=== PATIENT | male | born 1950 | race Caucasian/White ===

== ENCOUNTER 2019-08-16 17:30 | Inpatient (IN) ==
[2019-08-16] MEDS ORDERED: LABETALOL 5 MG/ML ML IV ONE (17:54)
--- NOTE | 2019-08-16 18:02 | Emergency Department Note ---
Altered Mental Status HPI - General Chief Complaint: Fall Stated Complaint: Fall Time Seen by Provider: 08/16/19 17:39 Source: patient, EMS Mode of arrival: EMS Limitations: no limitations - History of Present Illness HPI Narrative: 68-year-old male patient brought to the emergency department via ambulance. EMS says that the patient sustained a fall from the toilet to the ground his home. When questioned, the patient does not remember falling. He does not remember waking up this morning. He is a alert and orientated to his name, this facility, and the current president. He is unsure of what day of the week it is, what month it is, or what year it is. He denies any form of pain. He denies fever, sweats, chills. He denies vision changes. He denies headache. He denies satiation, runny nose, or cough. He denies shortness of breath. He d enies retrosternal chest pain or palpitations. He denies abdominal pain, nausea, vomiting, diarrhea, or constipation. He denies dysuria, hematuria, or frequency. He denies focal weakness. Patient's past medical history consist of the following: Hypertension, hyperglycemia, psoriasis, elevated LFTs, chronic diastolic heart failure, carotid artery stenosis, aortic insufficiency. MD complaint: altered mental status - Related Data Home Medications Medication Instructions Recorded Confirmed Amlodipine Besylate 10 mg PO DAILY 08/16/19 08/16/19 Carvedilol 3.125 mg PO DAILY 08/16/19 08/16/19 Clopidogrel 75 mg PO DAILY 08/16/19 08/16/19 Losartan Potassium 100 mg PO DAILY 08/16/19 08/16/19 Simvastatin 20 mg PO DAILY 08/16/19 08/16/19 Allergies Allergy/AdvReac Type Severity Reaction Status Date / Time No Known Drug Allergies Allergy Verified 08/16/19 17:31 Review of Systems All systems ED: reviewed and negative except as stated. Past Medical History - Social History smoking status: Former smoker Physical Exam Limitations: no limitations General appearance: alert, anxious, other (Well-developed, well-nourished 68-year-old male patient seen on the emergency room gurney obviously very anxious. He is trembling.) Head: atraumatic, normocephalic Eye: Present: normal appearance, PERRL, EOMI. Absent: scleral icterus, conjunctival injection ENT: Present: normal oropharynx, mucous membranes moist Neck: Present: trachea midline. Absent: lymphadenopathy, thyromegaly Chest: Present: symmetric chest wall rise Respiratory: Present: normal lung sounds bilaterally. Absent: respiratory distress, wheezes, stridor, accessory muscle use, prolonged expiratory phase Cardiovascular: Present: normal rhythm, tachycardia, systolic murmur. Absent: diastolic murmur Abdominal: Present: soft. Absent: distention, tenderness, guarding, rebound, rigidity, organomegaly, mass Extremities: Present: normal inspection, full ROM, normal capillary refill. Absent: pedal edema Back: Absent: CVA tenderness (R), CVA tenderness (L), spinous process tenderness Neurological: Present: alert, CN II-XII intact Patient oriented to: Present: person Speech: Present: fluid speech Motor strength - LUE: 5/5 Motor strength - RUE: 5/5 Motor strength - LLE: 5/5 Motor strength - RLE: 5/5 Sensory exam upper extremity: Normal: light touch Sensory exam lower extremity: Normal: light touch DTR: 2+: biceps (L), biceps (R), patellar (L), patellar (R) Coma Scale Eye Opening: Spontaneous Coma Scale Motor Response: Obeys Commands Coma Scale Verbal Response: Confused Coma Scale Total: 14 Psychiatric: Present: normal affect, anxious Skin: Present: warm, dry Course Course Narrative: Patient was brought into the emergency department and a history of physical exam was performed. Saline lock was established and laboratory studies were drawn. Blood glucose was obtained and reviewed. Twelve-lead EKG was obtained and reviewed. Portable chest x-ray was ordered and reviewed. Noncontrast head CT scan was ordered and reviewed. Normal saline was started 1000 mL bolus. Patient was found to be significantly hypertensive 159/124. He was given labetalol 20 mg IVP. A review of his laboratory studies show the following: CBC WBC 9.6, RBC 4.53, hemoglobin 14.2, hematocrit 42.5, platelets 140, granulocyte percent 91.8, granulocyte #8.71. CMP chloride 92, carbon dioxide 16, anion gap 29, BUN 7, glucose 23, total bilirubin 1.1, AST 140, ALT 52, total protein 8.6, globulin 4.1, all others normal limits. Troponin less than 0.01. Lactic acid 10.4. Urinalysis is showing straw-colored clear urine with specific gravity 1.0 pH 7.0. Positive proteinuria, positive glucose urea, positive ketonuria, positive small occult blood 0.03. Negative all others. No culture is indicated. Noncontrast head CT scan showing moderate atrophy with chronic ischemic changes in the deep cerebral white matter and a few remote lacunar infarcts in the deep cerebral white matter and basal ganglia. There was no intracerebral hemorrhage or posttraumatic change. Chest x-ray read as normal. ABG report showing pH 7.40, PCO2 36, PO2 75, HCO3 22.3. After reviewing all the data a second normal saline 1000 mL was started. Repeat lactic acid was requested. Blood cultures x2 were ordered and initiated. Vancomycin 1500mg IV was started. Upon reevaluation patient is sitting upright on the emergency room gurney a bit more lucid. He mentions remembering waking up this morning. He went inside to use the restroom but "that is all I remember". The next thing he recalls is being brought into the hospital via EMS. He still does not recall falling in the restroom. Repeat lactic acid had decreased to 5.4. Patient's spouse arrived at at the bedside and filled in some details. Patient has been ill most the day with nausea and vomiting. He did go down stairs to use restroom. During that time she was alerted by 1 of their animals to a problem downstairs. She went downstairs and found her passed out and stuck between the toilet and a cabinet. She attempted to remove the patient from the space and then called 911. During that time he was pale and diaphoretic. After reviewing the repeat lactic acid I discussed the case briefly with my collaborating physician (Dr. Griffin). He recommended a CK to help rule out rhabdomyolysis so this was ordered. Next, I reached out to the hospitalist (Dr. Hahn) to discuss the case with him and possible admission of the patient. At this time the hospitalist has recommended that the patient be admitted to the hospital for ongoing patient patient will be admitted under the care of Dr. Hahn. All further treatment decisions, modalities, and ultimate patient disposition will be carried out by the hospitalist. Vital Signs Temperature 98.4 F 08/16/19 17:31 Pulse Rate 130 H 08/16/19 17:31 Respiratory Rate 22 08/16/19 17:31 Blood Pressure 153/111 08/16/19 17:31 Pulse Oximetry (%) 98 08/16/19 17:31 Temperature 98.5 F 08/16/19 21:15 Pulse Rate 98 H 08/16/19 22:00 Respiratory Rate 14 08/16/19 22:00 Blood Pressure 136/96 08/16/19 21:30 Pulse Oximetry (%) 96 08/16/19 22:00 Altered Mental Status - Lab Data Lab results reviewed: Yes I reviewed the patient's lab results. Result diagrams: 08/16/19 18:00 08/16/19 18:00 Lab Results 08/16/19 08/16/19 08/16/19 Range/Units 18:00 18:00 18:00 WBC 9.6 (4.50-11.00) K/mcL RBC 4.53 L (4.63-6.08) M/mcL Hgb 14.2 (13.7-17.5) g/dL Hct 42.5 (40.1-51.0) % MCV 39.8 L (80.0-100.0) fL MCH 31.3 (26.0-34.0) pg MCHC 33.4 (31.0-36.0) g/dL RDW 15.4 H (11.5-14.5) % Plt Count 140 (140-440) K/mcL MPV 10.5 H (7.4-10.4) fL Gran % 91.8 H (38.0-78.0) % Lymph % (Auto) 4.8 L (15.5-49.0) % [place] % (Auto) 3.1 (1.0-12.0) % Eos % (Auto) 0 (0.0-7.0) % Baso % (Auto) 0.3 (0.0-2.0) % Gran # 8.71 H (1.80-8.00) K/mcL Lymph # (Auto) 0.46 L (1.50-4.80) K/mcL [place] # (Auto) 0.29 (0.10-0.90) K/mcL Eos # (Auto) 0 (0.00-0.70) K/mcL Baso # (Auto) 0.03 (0.00-0.30) K/mcL VBG Lactic Acid 10.4 H* (0.5-2.0) mmol/L Sodium 137 (133-145) mmol/L Potassium 3.5 (3.3-5.1) mmol/L Chloride 92 L (96-108) mmol/L Carbon Dioxide 16 L (22-30) mmol/L Anion Gap 29.0 H (8-16) BUN 7 L (8-23) mg/dl Creatinine 1.1 (0.7-1.2) mg/dl GFR Calculation 68 Glucose 183 H (70-105) mg/dL Calcium 9.1 (8.6-10.4) mg/dl Total Bilirubin 1.1 H (0.0-1.0) mg/dL AST 140 H (0-37) U/l ALT 52 H (0-40) U/l Alkaline Phosphatase 87 (39-117) U/L Total Creatine Kinase (24-195) IU/L Troponin T (0-0.03) ng/ml Total Protein 8.6 H (5.9-8.4) gm/dL Albumin 4.5 (3.2-5.2) gm/dL Globulin 4.1 H (2.2-3.7) gm/dL Albumin/Globulin Ratio 1.1 (1.0-2.3) Urine Color Urine Appearance Urine pH (5.0-9.0) Ur Specific [place] (1.000-1.035) Urine Protein (NEG) mg/dL Urine Glucose (UA) (NEG) mg/dL Urine Ketones (NEG) mg/dL Urine Occult Blood (<0.03) mg/dL Urine Nitrate (NEG) Urine Bilirubin (NEG) mg/dL Urine Urobilinogen (NEG) mg/dL Ur Leukocyte Esterase (NEG) /uL Urine RBC (0-1) /hpf Urine WBC (0-4) /hpf Ur Squamous Epith Cells (0-4) /hpf Urine Bacteria (0) /hpf Hyaline Casts (0-2) /lpf Urine Mucus (0) /hpf Ur Culture Indicated? 08/16/19 08/16/19 08/16/19 Range/Units 18:00 18:00 18:13 WBC (4.50-11.00) K/mcL RBC (4.63-6.08) M/mcL Hgb (13.7-17.5) g/dL Hct (40.1-51.0) % MCV (80.0-100.0) fL MCH (26.0-34.0) pg MCHC (31.0-36.0) g/dL RDW (11.5-14.5) % Plt Count (140-440) K/mcL MPV (7.4-10.4) fL Gran % (38.0-78.0) % Lymph % (Auto) (15.5-49.0) % [place] % (Auto) (1.0-12.0) % Eos % (Auto) (0.0-7.0) % Baso % (Auto) (0.0-2.0) % Gran # (1.80-8.00) K/mcL Lymph # (Auto) (1.50-4.80) K/mcL [place] # (Auto) (0.10-0.90) K/mcL Eos # (Auto) (0.00-0.70) K/mcL Baso # (Auto) (0.00-0.30) K/mcL VBG Lactic Acid (0.5-2.0) mmol/L Sodium (133-145) mmol/L Potassium (3.3-5.1) mmol/L Chloride (96-108) mmol/L Carbon Dioxide (22-30) mmol/L Anion Gap (8-16) BUN (8-23) mg/dl Creatinine (0.7-1.2) mg/dl GFR Calculation Glucose (70-105) mg/dL Calcium (8.6-10.4) mg/dl Total Bilirubin (0.0-1.0) mg/dL AST (0-37) U/l ALT (0-40) U/l Alkaline Phosphatase (39-117) U/L Total Creatine Kinase 111 (24-195) IU/L Troponin T < 0.01 (0-0.03) ng/ml Total Protein (5.9-8.4) gm/dL Albumin (3.2-5.2) gm/dL Globulin (2.2-3.7) gm/dL Albumin/Globulin Ratio (1.0-2.3) Urine Color Straw Urine Appearance Clear Urine pH 7.0 (5.0-9.0) Ur Specific [place] 1.010 (1.000-1.035) Urine Protein 100 A (NEG) mg/dL Urine Glucose (UA) 50 A (NEG) mg/dL Urine Ketones 5/tr A (NEG) mg/dL Urine Occult Blood 0.03 A (<0.03) mg/dL Urine Nitrate Neg (NEG) Urine Bilirubin Neg (NEG) mg/dL Urine Urobilinogen Neg (NEG) mg/dL Ur Leukocyte Esterase Neg (NEG) /uL Urine RBC 1 (0-1) /hpf Urine WBC 1 (0-4) /hpf Ur Squamous Epith Cells 0 (0-4) /hpf Urine Bacteria 0 (0) /hpf Hyaline Casts 5 H (0-2) /lpf Urine Mucus Few (0) /hpf Ur Culture Indicated? No 08/16/19 Range/Units 19:43 WBC (4.50-11.00) K/mcL RBC (4.63-6.08) M/mcL Hgb (13.7-17.5) g/dL Hct (40.1-51.0) % MCV (80.0-100.0) fL MCH (26.0-34.0) pg MCHC (31.0-36.0) g/dL RDW (11.5-14.5) % Plt Count (140-440) K/mcL MPV (7.4-10.4) fL Gran % (38.0-78.0) % Lymph % (Auto) (15.5-49.0) % [place] % (Auto) (1.0-12.0) % Eos % (Auto) (0.0-7.0) % Baso % (Auto) (0.0-2.0) % Gran # (1.80-8.00) K/mcL Lymph # (Auto) (1.50-4.80) K/mcL [place] # (Auto) (0.10-0.90) K/mcL Eos # (Auto) (0.00-0.70) K/mcL Baso # (Auto) (0.00-0.30) K/mcL VBG Lactic Acid 5.1 H* (0.5-2.0) mmol/L Sodium (133-145) mmol/L Potassium (3.3-5.1) mmol/L Chloride (96-108) mmol/L Carbon Dioxide (22-30) mmol/L Anion Gap (8-16) BUN (8-23) mg/dl Creatinine (0.7-1.2) mg/dl GFR Calculation Glucose (70-105) mg/dL Calcium (8.6-10.4) mg/dl Total Bilirubin (0.0-1.0) mg/dL AST (0-37) U/l ALT (0-40) U/l Alkaline Phosphatase (39-117) U/L Total Creatine Kinase (24-195) IU/L Troponin T (0-0.03) ng/ml Total Protein (5.9-8.4) gm/dL Albumin (3.2-5.2) gm/dL Globulin (2.2-3.7) gm/dL Albumin/Globulin Ratio (1.0-2.3) Urine Color Urine Appearance Urine pH (5.0-9.0) Ur Specific [place] (1.000-1.035) Urine Protein (NEG) mg/dL Urine Glucose (UA) (NEG) mg/dL Urine Ketones (NEG) mg/dL Urine Occult Blood (<0.03) mg/dL Urine Nitrate (NEG) Urine Bilirubin (NEG) mg/dL Urine Urobilinogen (NEG) mg/dL Ur Leukocyte Esterase (NEG) /uL Urine RBC (0-1) /hpf Urine WBC (0-4) /hpf Ur Squamous Epith Cells (0-4) /hpf Urine Bacteria (0) /hpf Hyaline Casts (0-2) /lpf Urine Mucus (0) /hpf Ur Culture Indicated? - Radiology Data Radiology results reviewed: Yes I reviewed the patient's radiology results. Ordering Physician: Erik Merchant PA-C Date of Service: 08/16/19 Procedure(s): XR chest 1V portable Accession Number(s): [id number] IMPRESSION: Normal chest. Ordering Physician: Erik Merchant PA-C Date of Service: 08/16/19 Procedure(s): CT head/brain wo con Accession Number(s): [id number] ] IMPRESSION: Moderate atrophy with chronic ischemic changes in the deep cerebral white matter with a few remote lacunar infarcts in the deep cerebral white matter and basal ganglia. There is no intracerebral hemorrhage or posttraumatic change. 2.5 cm polyp - right maxillary sinus moderate cerumen noted in the left external auditory meatus - consider removal. Interpreted and Authenticated by: Pb Walls 08/16/19 - EKG Data EKG attestation: Yes I reviewed and interpreted this EKG., Yes There are no EKG findings of acute coronary syndrome Disposition Pt seen by [facility]/PA only: Yes Clinical Impression: Elevated lactic acid level Syncope Qualifiers: Syncope type: vasovagal syncope Qualified Code(s): R55 - Syncope and collapse Altered mental status Qualifiers: Altered mental status type: disorientation Qualified Code(s): R41.0 - Disorientation, unspecified Disposition: Xfer As Outpt/Obs ([facility]) Condition: Fair Additional Instructions: At this time patient is going to be admitted to the hospital under the care of Dr. Hahn (hospitalist). All further treatment decisions, modalities, and ultimate patient disposition will be carried out by Dr. Hahn. Referrals: Bassam Fang MD [Physician] -
--- NOTE | 2019-08-16 18:28 | XRay Report ---
CLINICAL INFORMATION: Trauma COMPARISON: None. TECHNIQUE: PA and Lateral views FINDINGS: The heart size, mediastinum and pulmonary vessels are unremarkable. The lungs are clear. There are no effusions. The bones and soft tissues are within normal limits. IMPRESSION: Normal chest. Interpreted and Authenticated by: Pb Walls 08/16/19
--- NOTE | 2019-08-16 18:58 | Cat Scan Report ---
CLINICAL INFORMATION: Trauma COMPARISON: None. TECHNIQUE: 2.5 mm helical slices were obtained in the skull base to vertex. Following reconstruction, axial reformatted images were reviewed at bone and parenchymal windows. The exam was performed using radiation dose optimization techniques including, but not limited to, automated exposure control, adjustment of the mA and/or kV according to patient size and use of iterative reconstruction technique. FINDINGS: The ventricles, sulci, fissures, and cisterns are symmetrically enlarged compatible with moderate age-related atrophy - no extra-axial fluid collections or masses appreciated. Mild patchy chronic ischemic changes seen in the cerebral white matter. A few remote lacunar infarct noted in the deep cerebral white matter and basal ganglia. There is no acute cerebral hemorrhage, mass effect, edema or other acute finding. Bone windows show no fracture or other osseous abnormality. IMPRESSION: Moderate atrophy with chronic ischemic changes in the deep cerebral white matter with a few remote lacunar infarcts in the deep cerebral white matter and basal ganglia. There is no intracerebral hemorrhage or posttraumatic change. 2.5 cm polyp - right maxillary sinus moderate cerumen noted in the left external auditory meatus - consider removal.. Interpreted and Authenticated by: Pb Walls 08/16/19
[2019-08-16] MEDS ORDERED: VANCOMYCIN 1,500 MG in 0.9 % SODIUM CHLORIDE 500 ML IV ONE (19:13)
[2019-08-16] MEDS ORDERED: 0.9 % SODIUM CHLORIDE 1,000 ML IV ONE ×2 (19:17→19:18)
[2019-08-16 19:18] LABS: ALT/SGPT 52 U/l (0-40); AST/SGOT 140 U/l (0-37); Albumin 4.5 gm/dL (3.2-5.2); Albumin/Globulin Ratio 1.1 (1.0-2.3); Alkaline Phosphatase 87 U/L (39-117); Bilirubin,Total 1.1 mg/dL (0.0-1.0); Blood Urea Nitrogen 7 mg/dl (8-23); Calcium 9.1 mg/dl (8.6-10.4); Carbon Dioxide 16 mmol/L (22-30); Globulin 4.1 gm/dL (2.2-3.7); Glomerular Filtration Rate 68; Glucose 183 mg/dL (70-105)
[2019-08-16 19:22] LABS: Chloride 92 mmol/L (96-108)
[2019-08-16 19:23] LABS: Appearance,Urine CLEAR; Bacteria,Urine 0 /hpf (0); Bilirubin,Urine NEG (NEG); Color,Urine STRAW; Culture Indicated,Urine NO; Glucose,Urine (UA) 50 mg/dL (NEG); Ketones,Urine 5/TR mg/dL (NEG); Leukocyte Esterase,Urine NEG /uL (NEG); Mucus,Urine FEW /hpf (0); Nitrate,Urine NEG (NEG); Protein,Urine 100 mg/dL (NEG); Urine Blood 0.03 mg/dL (<0.03); Urine Hyaline Cast 5 /lpf (0-2); Urine RBC 1 /hpf (0-1); Urine Squamous Epithelial Cell 0 /hpf (0-4); Urine WBC 1 /hpf (0-4); Urobilinogen,Urine NEG (NEG)
[2019-08-16 19:34] LABS: Hematocrit 42.5 % (40.1-51.0); Hemoglobin 14.2 g/dL (13.7-17.5); Mean Cell Volume 39.8 fL (80.0-100.0); Mean Corpuscular HGB Conc 33.4 g/dL (31.0-36.0); Mean Platelet Volume 10.5 fL (7.4-10.4); Platelet Count 140 K/mcL (140-440); RBC 4.53 M/mcL (4.63-6.08); Red Cell Distribution Width 15.4 % (11.5-14.5); WBC 9.6 K/mcL (4.50-11.00)
[2019-08-16 19:36] LABS: Basophils # (Auto) 0.03 K/mcL (0.00-0.30); Basophils % (Auto) 0.3 % (0.0-2.0); Eosinophils # (Auto) 0 K/mcL (0.00-0.70); Eosinophils % (Auto) 0 % (0.0-7.0); Granulocytes % (Auto) 91.8 % (38.0-78.0); Lymphocytes # (Auto) 0.46 K/mcL (1.50-4.80); Lymphocytes % (Auto) 4.8 % (15.5-49.0); Monocytes # (Auto) 0.29 K/mcL (0.10-0.90); Monocytes % (Auto) 3.1 % (1.0-12.0)
[2019-08-16 21:41] LABS: Creatine Kinase 111 IU/L (24-195)
--- NOTE | 2019-08-16 22:50 | Internal Med History&Physical ---
Medical - H&P: HPI Patient information: Note initiated : 08/16/19 at 10:44 pm Service Date, if different from initiated Date: [] Patient: Sebastián Valentino a 68 y/o M admitted on for Fall. Chief Complaint: [] History of present illness: Mr. Valentino is a 68 year old M Presents the ED after having a syncopal episode. Per the history from the patient and his he seemed to be doing well yesterday. He had a sandwich from the sub-shop around 4 PM. Woke up in the morning and did not have breakfast which was unusual for him sound like he just did not have an appetite. And then later in the day around lunchtime he started having some nausea vomiting 3-4 episodes of clear fluid or and yellow fluid. He went down to go to the bathroom and was sitting on the toilet having a bowel movement was last thing he remembers. Next his heard the dog barking and went down found him on the ground by the toilet. Patient seemed confused after awakening and had a hard time remember events and also the year as asked by . He is very weak and his collection could not get him into a car so she called 911. He is never had an episode like this before. His that he is not anything to eat or drink since yesterday at 4 AM. In the ED was evaluated and he was sinus rhythm on the monitor. Labs were not very revealing except for he did have an elevated lactate at 10 which was repeated an hour later found to be 5. Chest x-ray was unrevealing. Urinalysis with some ketones hyaline cast protein CT of the brain showed no acute findings but did show moderate atrophy with chronic ischemic changes and some remote letter could infarcts in the cerebral white matter basal ganglia. Denies any chest pain or abdominal pain or shortness of breath around bowel movement or dysuria. No coughing. After several liters IV fluids in the ER he started to clear up with his mentation. Review of Systems: Pertinent positives as above. Denies headache/fever/chills/chest or abdominal pain/cough/dyspnea/diarrhea. Remaining 10 point review of system reviewed negative Medical - H&P: PMH Medical history: Past medical history: Carotid artery stenosis History of diastolic heart failure grade 1 History of hypertension History of cerebrovascular accident as evidenced by CT brain imaging recently, but patient unaware of any episodes of strokes in the past Past surgical history: None Family: Mother breast cancer heart disease Father had myocardial infarction Social history: Patient quit smoking in 89 Has 1-2 drinks of alcohol per night Ambulates independently Lives at home with his Medical - H&P: Meds Home Medications Medication Instructions Recorded Confirmed Type Amlodipine Besylate 10 mg PO DAILY 08/16/19 08/16/19 History Carvedilol 3.125 mg PO DAILY 08/16/19 08/16/19 History Clopidogrel 75 mg PO DAILY 08/16/19 08/16/19 History Losartan Potassium 100 mg PO DAILY 08/16/19 08/16/19 History Simvastatin 20 mg PO DAILY 08/16/19 08/16/19 History Allergies Allergy/AdvReac Type Severity Reaction Status Date / Time No Known Drug Allergies Allergy Verified 08/16/19 17:31 Medical - H&P: Exam - Constitutional Vitals: Temp Pulse Resp BP Pulse Ox 98.5 F 98 H 14 136/96 96 08/16/19 21:15 08/16/19 22:00 08/16/19 22:00 08/16/19 21:30 08/16/19 22:00 Exam: General: Awake, No acute Distress, appears little shaky in hands Eyes/N/T: EOMI, PERRL, dry MM Head/Neck: neck supple, normocephalic atraumatic CV: Tachycardia but regular, No murmurs, normal s1/s2 Pulm: Clear b/l, no wheezing/rhonchi/rales Abd: soft, nontender, +BS x4 Ext: no clubbing/cyanosis/edema Neuro: Alert, no focal deficits, moves all extremities, CN 2-12 grossly intact, symmetrical strength b/l upper/lower, sensations intact b/l upper/lower Skin: warm/dry Medical - H&P: Reslt - Labs CBC & Chem 7: 08/16/19 18:00 08/16/19 18:00 Labs: Short CBC 08/16/19 Range/Units 18:00 WBC 9.6 (4.50-11.00) K/mcL Hgb 14.2 (13.7-17.5) g/dL Hct 42.5 (40.1-51.0) % Plt Count 140 (140-440) K/mcL BMP 08/16/19 18:00 Sodium 137 Potassium 3.5 Chloride 92 L Carbon Dioxide 16 L BUN 7 L Creatinine 1.1 Glucose 183 H Calcium 9.1 Cardiac Enzymes 08/16/19 08/16/19 Range/Units 18:00 18:00 Total Creatine Kinase 111 (24-195) IU/L Troponin T < 0.01 (0-0.03) ng/ml Liver Function 08/16/19 Range/Units 18:00 Total Bilirubin 1.1 H (0.0-1.0) mg/dL AST 140 H (0-37) U/l ALT 52 H (0-40) U/l Alkaline Phosphatase 87 (39-117) U/L Albumin 4.5 (3.2-5.2) gm/dL Urine 08/16/19 Range/Units 18:13 Urine Color Straw Urine Appearance Clear Urine pH 7.0 (5.0-9.0) Ur Specific [place] 1.010 (1.000-1.035) Urine Protein 100 A (NEG) mg/dL Urine Glucose (UA) 50 A (NEG) mg/dL Medical - H&P: A/P - Narrative A/P Narrative: A: *Syncope: History sounds like a vasovagal episode -telemetry with sinus rhythm. Trop negative -With significantly elevated lactate, seizure in the differential. Also ddx includes arrhythmia's among others *AG Med acidosis 2/2 Lactic acidosis: 2/2 volume depletions vs Infection (no obvious source yet) vs ?Sz *Encephalopathy: improved in ED after IVF *volume depletion: *N/V: ?gastroenteritis vs other *h/o diastolic CHF grade I: *h/o CVA as evidenced by CT brain showing moderate atrophy, chronic ischemic changes and old lacunar infarcts *h/o artery stenosis: On Plavix and statin *HTN: On Coreg Norvasc and losartan *mild transaminitis: similar to outpt labs from last Fall * P: -IVF's -f/u lactate -pending BC/PCT/manual diff -holding abx for now -liver u/s -hepatitis panel -cont home BP meds -cont Plavix/statin -pt/ot -ppx: lovenox DNR
[2019-08-16] MEDS ORDERED: POLYETHYLENE GLYCOL 3350 17 GM PACKET PO PRN (23:58)
[2019-08-16] MEDS ORDERED: SENNOSIDES 1 TABLET PO PRN (23:58)
[2019-08-16] MEDS ORDERED: POTASSIUM CHLORIDE 20 MEQ TABLET PO PRN (23:58)
[2019-08-16] MEDS ORDERED: POTASSIUM CHLORIDE 40 MEQ in DEXTROSE 5% IN WATER 500 ML IV PRN (23:58)
[2019-08-16] MEDS ORDERED: IPRATROPIUM/ALBUTEROL 3 ML AMPUL.NEB NEB PRN (23:58)
[2019-08-16] MEDS ORDERED: ONDANSETRON 4 MG/2 ML VIAL IV PRN (23:58)
[2019-08-16] MEDS ORDERED: LABETALOL 5 MG/ML ML IV PRN (23:58)
[2019-08-16] MEDS ORDERED: MAGNESIUM SULFATE 2 GM/50 ML BAG IV PRN (23:58)
[2019-08-17] MEDS: 0.9 % SODIUM CHLORIDE 1,000 ML IV SCH ×2 (00:28→11:17)
[2019-08-17] MEDS ORDERED: LORazepam 2 MG/ML VIAL ONE ×2 (00:32→04:50)
[2019-08-17] MEDS: LORazepam 2 MG/ML VIAL IV PRN ×12 (00:33→23:34)
[2019-08-17 00:41] LABS: Band Neutrophils % 10 % (0-10); Lymphocytes % 1 % (15-49); Monocytes % (Manual) 6 % (1-12); Platelet Estimate NORMAL (NORMAL); RBC Morphology NORMAL (NORMAL); Segmented Neutrophils % 83 % (38-78)
[2019-08-17] MEDS: 0.9 % SODIUM CHLORIDE 10 ML SYRINGE IV SCH ×5 (05:37→22:14)
[2019-08-17 06:43] LABS: Basophils # (Auto) 0.03 K/mcL (0.00-0.30); Basophils % (Auto) 0.4 % (0.0-2.0); Eosinophils # (Auto) 0 K/mcL (0.00-0.70); Eosinophils % (Auto) 0 % (0.0-7.0); Granulocytes % (Auto) 80.2 % (38.0-78.0); Hematocrit 39.3 % (40.1-51.0); Hemoglobin 13.1 g/dL (13.7-17.5); Lymphocytes # (Auto) 0.98 K/mcL (1.50-4.80); Lymphocytes % (Auto) 11.5 % (15.5-49.0); Mean Cell Volume 93.3 fL (80.0-100.0); Mean Corpuscular HGB Conc 33.3 g/dL (31.0-36.0); Mean Platelet Volume 11.2 fL (7.4-10.4); Monocytes # (Auto) 0.67 K/mcL (0.10-0.90); Monocytes % (Auto) 7.9 % (1.0-12.0); Platelet Count 135 K/mcL (140-440); RBC 4.21 M/mcL (4.63-6.08); Red Cell Distribution Width 15.2 % (11.5-14.5); WBC 8.5 K/mcL (4.50-11.00)
[2019-08-17 07:50] LABS: Hepatitis B Surface Antigen NEGATIVE (NEGATIVE); Hepatitis C Virus Antibody NON REACTIVE (NEGATIVE)
[2019-08-17 07:57] LABS: ALT/SGPT 39 U/l (0-40); AST/SGOT 95 U/l (0-37); Albumin 4.2 gm/dL (3.2-5.2); Albumin/Globulin Ratio 1.2 (1.0-2.3); Alkaline Phosphatase 66 U/L (39-117); Bilirubin,Direct 0.4 mg/dL (0.0-0.3); Bilirubin,Total 1.2 mg/dL (0.0-1.0); Blood Urea Nitrogen 6 mg/dl (8-23); Calcium 8.3 mg/dl (8.6-10.4); Chloride 97 mmol/L (96-108); Globulin 3.4 gm/dL (2.2-3.7); Glomerular Filtration Rate 87; Glucose 89 mg/dL (70-105); Lactate Dehydrogenase 274 U/L (94-250); Phosphorous 3.4 mg/dL (2.7-4.5); Triglycerides 94 mg/dl (<150); Uric Acid 9.1 mg/dL (2.5-8.0)
[2019-08-17] MEDS ORDERED: MAGNESIUM SULFATE 2 GM/50 ML BAG IV ONE (07:59)
--- NOTE | 2019-08-17 08:00 | Internal Med Progress Note ---
Medical - PN: Subj Patient information: Note initiated : 08/17/19 at 7:55 am Service Date, if different from initiated Date: [] Patient: Sebastián Valentino 68 y/o M admitted on 08/16/19 for Fall. Chief Complaint: [] Interval history: Mr. Valentino is a 68 year old M Presents the ED after having a syncopal episode. Per the history from the patient and his he seemed to be doing well yesterday. He had a sandwich from the sub-shop around 4 PM. Woke up in the morning and did not have breakfast which was unusual for him sound like he just did not have an appetite. And then later in the day around lunchtime he started having some nausea vomiting 3-4 episodes of clear fluid or and yellow fluid. He went down to go to the bathroom and was sitting on the toilet having a bowel movement was last thing he remembers. Next his heard the dog barking and went down found him on the ground by the toilet. Patient seemed confused after awakening and had a hard time remember events and also the year as asked by . He is very weak and his collection could not get him into a car so she called 911. He is never had an episode like this before. His that he is not anything to eat or drink since yesterday at 4 AM. In the ED was evaluated and he was sinus rhythm on the monitor. Labs were not very revealing except for he did have an elevated lactate at 10 which was repeated an hour later found to be 5. Chest x-ray was unrevealing. Urinalysis with some ketones hyaline cast protein CT of the brain showed no acute findings but did show moderate atrophy with chronic ischemic changes and some remote letter could infarcts in the cerebral white matter basal ganglia. Denies any chest pain or abdominal pain or shortness of breath around bowel movement or dysuria. No coughing. After several liters IV fluids in the ER he started to clear up with his mentation. 08/17 Per nurses he had hallucinations and elevated CIWA scores last night. Has tremors to both arms, per notes he has mild tremors each morning but it is more pronounced at this time. He does have underlying cerebral compromise per CT showing moderate atrophy chronic ischemic changes and few remote lacunar infarcts. seems to be doing better this morning. Patient states he feels 100% better. Rhythm sinus on the monitor. Denies any pains or complaints Review of Systems: denies headache/fever/chills/nausea/vomiting/chest or abdominal pain/cough/dyspnea/diarrhea. Otherwise see above. - Constitutional Vitals: Vital Signs Temp Pulse Resp BP Pulse Ox 98.4 F 96 H 18 101/74 97 08/17/19 04:00 08/17/19 05:09 08/17/19 05:09 08/17/19 05:01 08/17/19 05:09 Period Temp Pulse Resp BP Sys/Masters Pulse Ox Last 24 Hr 98.4 F-98.5 F 86-136 14-25 94-159/74-124 93-100 Intake and Output 08/16/19 08/17/19 08/17/19 21:59 05:59 13:59 Intake Total 2500 Output Total 450 150 Balance 2500 -450 -150 Weight 74.843 kg 64.002 kg Intake & Output: Intake & Output 08/16/19 08/17/19 08/17/19 21:59 05:59 13:59 Intake Total 2500 Output Total 450 150 Balance 2500 -450 -150 Weight 74.843 kg 64.002 kg Intake: IV 2500 Sodium Chloride 0.9% 1,000 ml @ 2000 Wide Open IV BOLUS ONE Rx#: [id number] Vancomycin 1,500 mg In Sodium 500 Chloride 0.9% 500 ml @ 333.3 mls/hr IV ONCE ONE Rx#: [id number] Output: Void Amount 450 150 Other: Urine Appearance Clear Clear Urine Color Light Laura Dark Yellow Exam: General: Awake, No acute Distress, appears little shaky in hands Eyes/N/T: EOMI, Head/Neck: neck supple, CV: mildly Tachycardia but regular, No murmurs, Pulm: Clear b/l, no wheezing/rhonchi/rales Abd: soft, nontender, +BS x4 Ext: no clubbing/cyanosis/edema Neuro: A&Ox4, no focal deficits, moves all extremities, Skin: warm/dry Medical - PN: Obj Da - Labs CBC & Chem 7: 08/17/19 04:38 08/17/19 04:38 Labs: Abnormal Lab Results 08/17/19 08/17/19 08/16/19 04:38 04:38 22:34 RBC 4.21 L Hgb 13.1 L Hct 39.3 L MCV RDW 15.2 H Plt Count 135 L MPV 11.2 H Gran % 80.2 H Lymph % (Auto) 11.5 L Gran # Lymph # (Auto) 0.98 L Seg Neutrophils % Lymphocytes % VBG Lactic Acid 2.8 H 2.3 H Chloride Carbon Dioxide Anion Gap BUN Glucose Total Bilirubin AST ALT Total Protein Globulin Urine Protein Urine Glucose (UA) Urine Ketones Urine Occult Blood Hyaline Casts 08/16/19 08/16/19 08/16/19 19:43 18:13 18:00 RBC Hgb Hct MCV RDW Plt Count MPV Gran % Lymph % (Auto) Gran # Lymph # (Auto) Seg Neutrophils % 83 H Lymphocytes % 1 L VBG Lactic Acid 5.1 H* Chloride Carbon Dioxide Anion Gap BUN Glucose Total Bilirubin AST ALT Total Protein Globulin Urine Protein 100 A Urine Glucose (UA) 50 A Urine Ketones 5/tr A Urine Occult Blood 0.03 A Hyaline Casts 5 H 08/16/19 08/16/19 08/16/19 18:00 18:00 18:00 RBC 4.53 L Hgb Hct MCV 39.8 L RDW 15.4 H Plt Count MPV 10.5 H Gran % 91.8 H Lymph % (Auto) 4.8 L Gran # 8.71 H Lymph # (Auto) 0.46 L Seg Neutrophils % Lymphocytes % VBG Lactic Acid 10.4 H* Chloride 92 L Carbon Dioxide 16 L Anion Gap 29.0 H BUN 7 L Glucose 183 H Total Bilirubin 1.1 H AST 140 H ALT 52 H Total Protein 8.6 H Globulin 4.1 H Urine Protein Urine Glucose (UA) Urine Ketones Urine Occult Blood Hyaline Casts Meds: Medications Acetaminophen (Tylenol) 650 mg PO Q6HP PRN PRN Reason: PAIN/FEVER > 101 Albuterol/Ipratropium (Duoneb) 3 ml NEB Q4HP PRN PRN Reason: Shortness Of Breath Amlodipine Besylate (Norvasc) 10 mg PO DAILY [facility] Carvedilol (Coreg) 3.125 mg PO QAMCC [facility] Clopidogrel Bisulfate (Plavix) 75 mg PO DAILY [facility] Enoxaparin Sodium (Lovenox) 40 mg SQ DAILY [facility] Potassium Chloride 40 meq/ (Dextrose) 520 mls @ 130 mls/hr IV UD PRN PRN Reason: Potassium < 3 Magnesium Sulfate (Magnesium Sulfate) 2 gm in 50 mls @ 50 mls/hr IV UD PRN PRN Reason: Magnesium </= 1.6 Sodium Chloride (Sodium Chloride 0.9%) 1,000 mls @ 100 mls/hr IV .Q10H [facility] Stop: 08/17/19 09:57 Last Admin: 08/17/19 00:28 Dose: 100 mls/hr Documented by: Labetalol HCl (Trandate) 0 mg IV Q2HP PRN PRN Reason: Hypertension Lorazepam (Ativan) 1 mg IV Q2-4HP PRN PRN Reason: Seizure Activity Last Admin: 08/17/19 04:56 Dose: 1 mg Documented by: Losartan Potassium (Cozaar) 100 mg PO DAILY [facility] Ondansetron HCl (Zofran) 4 mg IV Q4HP PRN PRN Reason: Nausea And Vomiting Polyethylene Glycol (Miralax) 17 gm PO DAILYP PRN PRN Reason: Constipation Potassium Chloride (Kdur) 40 meq PO UD PRN PRN Reason: Potssium is 3-3.5 Potassium Chloride (Kdur) 40 meq PO UD PRN PRN Reason: Potassium < 3 Senna (Senokot) 2 tab PO DAILYP PRN PRN Reason: Constipation Simvastatin (Zocor) 20 mg PO DAILY [facility] Sodium Chloride (Saline Flush) 10 ml IV Q8 [facility] Last Admin: 08/17/19 05:37 Dose: 10 ml Documented by: Medical - PN: A/P - Time Spent With Patient Total time spent is greater than 50% in coordination of care (as documented) at patient's floor/unit and/or counseling patient: - Narrative A/P Narrative: A: *Syncope: History sounds like a vasovagal episode -telemetry with sinus rhythm. Trop negative -With significantly elevated lactate, seizure in the differential. Also ddx includes arrhythmia's among others *AG Med acidosis 2/2 Lactic acidosis: 2/2 volume depletions vs Infection (no source found) vs -improved *Encephalopathy: improved in ED after IVF *ETOH use with w/d: *volume depletion: *N/V: ?gastroenteritis vs other *h/o diastolic CHF grade I: *h/o CVA as evidenced by CT brain showing moderate atrophy, chronic ischemic changes and old lacunar infarcts *h/o artery stenosis: On Plavix and statin *HTN: On Coreg Norvasc and losartan *mild transaminitis: similar to outpt labs from last Fall *Electrolyte imbalance: P: -IVF's -f/u lactate -CIWA -holding abx for now, no source/afebrile/low PCT/no leukocytosis, check man diff -liver u/s, hepatitis panel -PRN electrolyte replacement -cont home BP meds -cont Plavix/statin -pt/ot -ppx: lovenox DNR
[2019-08-17 08:02] LABS: Carbon Dioxide 23 mmol/L (22-30)
[2019-08-17 09:09] LABS: Lymphocytes % 12 % (15-49); Monocytes % (Manual) 6 % (1-12); Platelet Estimate DECREASED (NORMAL); RBC Morphology NORMAL (NORMAL); Segmented Neutrophils % 82 % (38-78)
[2019-08-17] MEDS: ENOXAPARIN 40 MG/0.4 ML SYRINGE SQ SCH (09:30)
[2019-08-17] MEDS: POTASSIUM CHLORIDE 20 MEQ TABLET PO PRN (09:31)
[2019-08-17] MEDS: CARVEDILOL 3.125 MG TABLET PO SCH (09:31)
[2019-08-17] MEDS: ACETAMINOPHEN 325 MG TABLET PO PRN (09:31)
[2019-08-17] MEDS: amLODIPine 10 MG TABLET PO SCH (09:31)
[2019-08-17] MEDS: SIMVASTATIN 20 MG TABLET PO SCH (09:31)
[2019-08-17] MEDS: LOSARTAN 50 MG TABLET PO SCH (09:31)
[2019-08-17] MEDS: CLOPIDOGREL 75 MG TABLET PO SCH (09:31)
[2019-08-17] MEDS ORDERED: THIAMINE 100 MG in 0.9 % SODIUM CHLORIDE 50 ML IV ONE (10:01)
[2019-08-17] MEDS: FOLIC ACID 1 MG TABLET PO SCH (11:16)
--- NOTE | 2019-08-17 17:49 | Ultrasound Report ---
CLINICAL INFORMATION: Transaminitis COMPARISON: None. FINDINGS: Liver is enlarged with a vertical dimension of 18 cm. It is also diffusely hyperechoic and heterogeneous suggesting fatty change or other diffuse hepatocellular process. There are no focal hepatic lesions. Gallbladder and bile ducts are normal: CBD is 4 mm. Pancreas is unremarkable. No free fluid IMPRESSION: Mild hepatomegaly with inhomogeneous echotexture compatible with fatty change or other diffuse hepatocellular process. Gallbladder bile ducts and pancreas normal Interpreted and Authenticated by: Pb Walls 08/17/19
[2019-08-17] MEDS: BRIMONIDINE OPHTH DROPS 1 GTT BOTTLE 5ML OU SCH ×2 (18:52→22:11)
[2019-08-17] MEDS: LATANOPROST OPHTH DROPS 2.5ML BOTTLE OU SCH (20:21)
[2019-08-18] MEDS: 0.9 % SODIUM CHLORIDE 10 ML SYRINGE IV SCH ×5 (05:07→20:44)
[2019-08-18 06:56] LABS: Chloride 99 mmol/L (96-108)
[2019-08-18 06:58] LABS: ALT/SGPT 27 U/l (0-40); AST/SGOT 64 U/l (0-37); Albumin 3.6 gm/dL (3.2-5.2); Albumin/Globulin Ratio 1.2 (1.0-2.3); Alkaline Phosphatase 52 U/L (39-117); Bilirubin,Direct 0.3 mg/dL (0.0-0.3); Blood Urea Nitrogen 8 mg/dl (8-23); Calcium 7.8 mg/dl (8.6-10.4); Carbon Dioxide 22 mmol/L (22-30); Glomerular Filtration Rate 91; Glucose 63 mg/dL (70-105); Lactate Dehydrogenase 298 U/L (94-250); Phosphorous 2.4 mg/dL (2.7-4.5); Triglycerides 194 mg/dl (<150); Uric Acid 7.3 mg/dL (2.5-8.0)
[2019-08-18 07:13] LABS: Basophils # (Auto) 0.02 K/mcL (0.00-0.30); Basophils % (Auto) 0.4 % (0.0-2.0); Eosinophils # (Auto) 0.04 K/mcL (0.00-0.70); Eosinophils % (Auto) 0.9 % (0.0-7.0); Granulocytes % (Auto) 65.2 % (38.0-78.0); Hematocrit 38.1 % (40.1-51.0); Hemoglobin 12.3 g/dL (13.7-17.5); Lymphocytes # (Auto) 1.09 K/mcL (1.50-4.80); Lymphocytes % (Auto) 23.7 % (15.5-49.0); Mean Cell Volume 95.5 fL (80.0-100.0); Mean Corpuscular HGB Conc 32.3 g/dL (31.0-36.0); Mean Platelet Volume 11.6 fL (7.4-10.4); Monocytes # (Auto) 0.45 K/mcL (0.10-0.90); Monocytes % (Auto) 9.8 % (1.0-12.0); Platelet Count 104 K/mcL (140-440); RBC 3.99 M/mcL (4.63-6.08); Red Cell Distribution Width 15.3 % (11.5-14.5); WBC 4.6 K/mcL (4.50-11.00)
[2019-08-18] MEDS ORDERED: MAGNESIUM SULFATE 2 GM/50 ML BAG IV ONE (09:10)
[2019-08-18] MEDS: BRIMONIDINE OPHTH DROPS 1 GTT BOTTLE 5ML OU SCH ×2 (09:59→20:44)
[2019-08-18] MEDS ORDERED: POTASSIUM PHOSPHATE 40 MEQ in DEXTROSE 5% IN WATER 500 ML IV ONE (10:00)
[2019-08-18] MEDS: CLOPIDOGREL 75 MG TABLET PO SCH (10:03)
[2019-08-18] MEDS: THIAMINE 100 MG TABLET PO SCH (10:03)
[2019-08-18] MEDS: CARVEDILOL 3.125 MG TABLET PO SCH (10:03)
[2019-08-18] MEDS: amLODIPine 10 MG TABLET PO SCH (10:03)
[2019-08-18] MEDS: ENOXAPARIN 40 MG/0.4 ML SYRINGE SQ SCH (10:03)
[2019-08-18] MEDS: MULTIVIT,THER IRON,CA,FA & MIN 1 TABLET PO SCH (10:03)
[2019-08-18] MEDS: FOLIC ACID 1 MG TABLET PO SCH (10:03)
[2019-08-18] MEDS: LOSARTAN 50 MG TABLET PO SCH (10:03)
[2019-08-18] MEDS: LORazepam 2 MG/ML VIAL IV PRN ×5 (10:04→20:43)
[2019-08-18] MEDS: ACETAMINOPHEN 325 MG TABLET PO PRN (10:04)
[2019-08-18] MEDS: SIMVASTATIN 20 MG TABLET PO SCH (10:04)
[2019-08-18] MEDS: DEXTROSE 5%-NS 1,000 ML IV SCH (11:00)
--- NOTE | 2019-08-18 11:06 | Internal Med Progress Note ---
Medical - PN: Subj Patient information: Note initiated : 08/18/19 at 11:03 am Service Date, if different from initiated Date: [] Patient: Sebastián Valentino a 68 y/o M admitted on 08/16/19 for Fall. Chief Complaint: Follow-up withdrawal Interval history: 08/16 Mr. Valentino is a 68 year old M who presents the ED after having a syncopal episode. Per the history from the patient and his he seemed to be doing well yes terday. He had a sandwich from the sub-shop around 4 PM. Woke up in the morning and did not have breakfast which was unusual for him sound like he just did not have an appetite. And then later in the day around lunchtime he started having some nausea vomiting 3-4 episodes of clear fluid or and yellow fluid. He went down to go to the bathroom and was sitting on the toilet having a bowel movement was last thing he remembers. Next his heard the dog barking and went down found him on the ground by the toilet. Patient seemed confused after awakening and had a hard time remember events and also the year as asked by . He is very weak and his collection could not get him into a car so she called 911. He is never had an episode like this before. His that he is not anything to eat or drink since yesterday at 4 AM. In the ED was evaluated and he was sinus rhythm on the monitor. Labs were not very revealing except for he did have an elevated lactate at 10 which was repeated an hour later found to be 5. Chest x-ray was unrevealing. Urinalysis with some ketones hyaline cast protein CT of the brain showed no acute findings but did show moderate atrophy with chronic ischemic changes and some remote letter could infarcts in the cerebral white matter basal ganglia. Denies any chest pain or abdominal pain or shortness of breath around bowel movement or dysuria. No coughing. After several liters IV fluids in the ER he started to clear up with his mentation. 08/17 Per nurses he had hallucinations and elevated CIWA scores last night. Has tremors to both arms, per notes he has mild tremors each morning but it is more pronounced at this time. He does have underlying cerebral compromise per CT showing moderate atrophy chronic ischemic changes and few remote lacunar infarcts. seems to be doing better this morning. Patient states he feels 100% better. Rhythm sinus on the monitor. 08/18 The patient's provides further history that the patient has likely 10-12 ounces of hard alcohol a day, though she suspects it may be more. He continued to have elevated CIWA scores throughout the afternoon and evening last night. Required 11 mg of lorazepam on days yesterday, a similar amount overnight. This morning remains with delirium. Pertinent ROS: Not obtainable due to delirium - Constitutional Vitals: Vital Signs Temp Pulse Resp BP Pulse Ox 97.7 F 78 18 142/103 97 08/18/19 08:00 08/18/19 08:41 08/18/19 08:41 08/18/19 08:00 08/18/19 08:00 Period Temp Pulse Resp BP Sys/Masters Pulse Ox Last 24 Hr 97.2 F-98.4 F 78 7-27 88-178/62-155 90-100 Intake and Output 08/17/19 08/18/19 08/18/19 21:59 05:59 13:59 Intake Total 1000 Output Total 1 2 Balance -1 998 Weight 139 lb 4.8 oz Intake & Output: Intake & Output 08/17/19 08/18/19 08/18/19 21:59 05:59 13:59 Intake Total 1000 Output Total 1 2 Balance -1 998 Weight 139 lb 4.8 oz Intake: IV 1000 Sodium Chloride 0.9% 1,000 ml @ 1000 100 mls/hr IV .Q10H [facility] Rx#: [id number] Oral 0 Output: # of times incontinent of urine 1 2 Other: Meal Lunch Percent of Meal Consumed bites Feeding Ability Assist with Tray Set Up Urine Appearance Clear Urine Color Dark Laura Urine Odor Strong Strong Exam: General: In bed, tremulous Chest: Clear bilaterally Cardiovascular: Regular Abdomen: Soft, no apparent tenderness Neuro: Tremulous, confused and agitated. Moves all extremities. Medical - PN: Obj Da - Labs CBC & Chem 7: 08/18/19 05:11 08/18/19 05:10 Labs: Abnormal Lab Results 08/18/19 08/18/19 08/17/19 05:11 05:10 04:38 RBC 3.99 L Hgb 12.3 L Hct 38.1 L MCV RDW 15.3 H Plt Count 104 L MPV 11.6 H Gran % Lymph % (Auto) Gran # Lymph # (Auto) 1.09 L Seg Neutrophils % Lymphocytes % Platelet Estimate VBG Lactic Acid 2.8 H Potassium 3.0 L Chloride Carbon Dioxide Anion Gap 19.0 H BUN Glucose 63 L Uric Acid Calcium 7.8 L Phosphorus 2.4 L Magnesium Total Bilirubin Direct Bilirubin GGT 431 H AST 64 H ALT Lactate Dehydrogenase 298 H Total Protein Globulin Triglycerides 194 H Urine Protein Urine Glucose (UA) Urine Ketones Urine Occult Blood Hyaline Casts 08/17/19 08/17/19 08/17/19 04:38 04:38 04:34 RBC 4.21 L Hgb 13.1 L Hct 39.3 L MCV RDW 15.2 H Plt Count 135 L MPV 11.2 H Gran % 80.2 H Lymph % (Auto) 11.5 L Gran # Lymph # (Auto) 0.98 L Seg Neutrophils % 82 H Lymphocytes % 12 L Platelet Estimate Decreased A VBG Lactic Acid Potassium Chloride Carbon Dioxide Anion Gap 19.0 H BUN 6 L Glucose Uric Acid 9.1 H Calcium 8.3 L Phosphorus Magnesium 1.5 L Total Bilirubin 1.2 H Direct Bilirubin 0.4 H GGT 496 H AST 95 H ALT Lactate Dehydrogenase 274 H Total Protein Globulin Triglycerides Urine Protein Urine Glucose (UA) Urine Ketones Urine Occult Blood Hyaline Casts 08/16/19 08/16/19 08/16/19 22:34 19:43 18:13 RBC Hgb Hct MCV RDW Plt Count MPV Gran % Lymph % (Auto) Gran # Lymph # (Auto) Seg Neutrophils % Lymphocytes % Platelet Estimate VBG Lactic Acid 2.3 H 5.1 H* Potassium Chloride Carbon Dioxide Anion Gap BUN Glucose Uric Acid Calcium Phosphorus Magnesium Total Bilirubin Direct Bilirubin GGT AST ALT Lactate Dehydrogenase Total Protein Globulin Triglycerides Urine Protein 100 A Urine Glucose (UA) 50 A Urine Ketones 5/tr A Urine Occult Blood 0.03 A Hyaline Casts 5 H 08/16/19 08/16/19 08/16/19 18:00 18:00 18:00 RBC Hgb Hct MCV RDW Plt Count MPV Gran % Lymph % (Auto) Gran # Lymph # (Auto) Seg Neutrophils % 83 H Lymphocytes % 1 L Platelet Estimate VBG Lactic Acid 10.4 H* Potassium Chloride 92 L Carbon Dioxide 16 L Anion Gap 29.0 H BUN 7 L Glucose 183 H Uric Acid Calcium Phosphorus Magnesium Total Bilirubin 1.1 H Direct Bilirubin GGT AST 140 H ALT 52 H Lactate Dehydrogenase Total Protein 8.6 H Globulin 4.1 H Triglycerides Urine Protein Urine Glucose (UA) Urine Ketones Urine Occult Blood Hyaline Casts 08/16/19 18:00 RBC 4.53 L Hgb Hct MCV 39.8 L RDW 15.4 H Plt Count MPV 10.5 H Gran % 91.8 H Lymph % (Auto) 4.8 L Gran # 8.71 H Lymph # (Auto) 0.46 L Seg Neutrophils % Lymphocytes % Platelet Estimate VBG Lactic Acid Potassium Chloride Carbon Dioxide Anion Gap BUN Glucose Uric Acid Calcium Phosphorus Magnesium Total Bilirubin Direct Bilirubin GGT AST ALT Lactate Dehydrogenase Total Protein Globulin Triglycerides Urine Protein Urine Glucose (UA) Urine Ketones Urine Occult Blood Hyaline Casts Meds: Medications Acetaminophen (Tylenol) 650 mg PO Q6HP PRN PRN Reason: PAIN/FEVER > 101 Last Admin: 08/18/19 10:04 Dose: 650 mg Documented by: Albuterol/Ipratropium (Duoneb) 3 ml NEB Q4HP PRN PRN Reason: Shortness Of Breath Amlodipine Besylate (Norvasc) 10 mg PO DAILY [facility] Last Admin: 08/18/19 10:03 Dose: 10 mg Documented by: Brimonidine Tartrate (Alphagan P Ophth Drops) 1 gtt OU BID [facility] Last Admin: 08/18/19 09:59 Dose: 1 gtt Documented by: Carvedilol (Coreg) 3.125 mg PO [facility] Last Admin: 08/18/19 10:03 Dose: 3.125 mg Documented by: Clopidogrel Bisulfate (Plavix) 75 mg PO DAILY [facility] Last Admin: 08/18/19 10:03 Dose: 75 mg Documented by: Enoxaparin Sodium (Lovenox) 40 mg SQ DAILY [facility] Last Admin: 08/18/19 10:03 Dose: 40 mg Documented by: Folic Acid (Folic Acid) 1 mg PO DAILY [facility] Last Admin: 08/18/19 10:03 Dose: 1 mg Documented by: Potassium Chloride 40 meq/ (Dextrose) 520 mls @ 130 mls/hr IV UD PRN PRN Reason: Potassium < 3 Magnesium Sulfate (Magnesium Sulfate) 2 gm in 50 mls @ 50 mls/hr IV UD PRN PRN Reason: Magnesium </= 1.6 Potassium Phosphate 40 meq/ (Dextrose) 509.0909 mls @ 127.273 mls/hr IV ONCE ONE Stop: 08/18/19 13:59 Last Admin: 08/18/19 09:32 Dose: 127.273 mls/hr Documented by: Magnesium Sulfate (Magnesium Sulfate) 2 gm in 50 mls @ 25 mls/hr IV ONCE ONE Stop: 08/18/19 11:09 Last Admin: 08/18/19 09:37 Dose: 25 mls/hr Documented by: Iron Carb/Multivit/[place]/Folic Acid (Multivitamin W/Minerals) 1 tab PO DAILY [facility] Last Admin: 08/18/19 10:03 Dose: 1 tab Documented by: Labetalol HCl (Trandate) 0 mg IV Q2HP PRN PRN Reason: Hypertension Latanoprost (Xalatan Ophth Drops) 1 gtt OU HS [facility] Last Admin: 08/17/19 20:21 Dose: Not Given Documented by: Lorazepam (Ativan) 1 - 4 mg IV Q1HP PRN; Protocol PRN Reason: Alcohol Withdrawal Last Admin: 08/18/19 10:04 Dose: 4 mg Documented by: Losartan Potassium (Cozaar) 100 mg PO DAILY [facility] Last Admin: 08/18/19 10:03 Dose: 100 mg Documented by: Ondansetron HCl (Zofran) 4 mg IV Q4HP PRN PRN Reason: Nausea And Vomiting Polyethylene Glycol (Miralax) 17 gm PO DAILYP PRN PRN Reason: Constipation Potassium Chloride (Kdur) 40 meq PO UD PRN PRN Reason: Potssium is 3-3.5 Last Admin: 08/17/19 09:31 Dose: 40 meq Documented by: Potassium Chloride (Kdur) 40 meq PO UD PRN PRN Reason: Potassium < 3 Senna (Senokot) 2 tab PO DAILYP PRN PRN Reason: Constipation Simvastatin (Zocor) 20 mg PO DAILY [facility] Last Admin: 08/18/19 10:04 Dose: 20 mg Documented by: Sodium Chloride (Saline Flush) 10 ml IV Q8 [facility] Last Admin: 08/18/19 05:08 Dose: 10 ml Documented by: Sodium Chloride (Saline Flush) 10 ml IV Q8 [facility] Last Admin: 08/18/19 05:07 Dose: Not Given Documented by: Thiamine HCl (Vitamin B1) 100 mg PO QDAY [facility] Last Admin: 08/18/19 10:03 Dose: 100 mg Documented by: - Imaging and cardiology US - abdomen Additional comments: IMPRESSION: Mild hepatomegaly with inhomogeneous echotexture compatible with fatty change or other diffuse hepatocellular process. Gallbladder bile ducts and pancreas normal Medical - PN: A/P - Time Spent With Patient Total time spent is greater than 50% in coordination of care (as documented) at patient's floor/unit and/or counseling patient: Greater than 35 minutes - Narrative A/P Narrative: A: *Syncope: History sounds like a vasovagal episode, occurring on commode -telemetry shows NSR, troponin negative -significantly elevated lactate, thus seizure remains in the differential as does arrhythmia, other *AG Med acidosis 2/2 Lactic acidosis: 2/2 volume depletions vs Infection (no source found) vs query seizure -Resolved *Encephalopathy: improved in ED after IVF, worsened with onset of alcohol withdrawal *ETOH use with w/d: *volume depletion: Resolved *N/V: ?gastroenteritis vs other: Resolved *h/o diastolic CHF grade I: *h/o CVA, noted on CT brain showing moderate atrophy, chronic ischemic changes and old lacunar infarcts *h/o artery stenosis: On Plavix and statin *HTN: On Coreg Norvasc and losartan *mild transaminitis: similar to outpt labs from last Fall -Liver ultrasound compatible with fatty changes -Given degree of withdrawal, suspect due to alcohol *Electrolyte imbalance: P: -Continue with IV hydration, patient currently n.p.o. -Continue CIWA -Continue to withhold antibiotics as no source/afebrile/low PCT/no leukocytosis -f/u hepatitis panel -PRN electrolyte replacement -cont home BP meds -cont Plavix/statin -pt/ot as able -ppx: lovenox DNR
[2019-08-18] MEDS: LATANOPROST OPHTH DROPS 2.5ML BOTTLE OU SCH (20:44)
[2019-08-18] MEDS ORDERED: DEXMEDETOMIDINE 100 ML IV ONE (23:16)
[2019-08-18] MEDS: DEXMEDETOMIDINE 400 MCG in PREMIX 1 BAG IV SCH (23:29)
[2019-08-19] MEDS: DEXTROSE 5%-NS 1,000 ML IV SCH ×2 (00:32→14:07)
[2019-08-19] MEDS: 0.9 % SODIUM CHLORIDE 10 ML SYRINGE IV SCH ×3 (05:05→20:45)
[2019-08-19 06:44] LABS: Basophils # (Auto) 0.03 K/mcL (0.00-0.30); Basophils % (Auto) 0.5 % (0.0-2.0); Eosinophils # (Auto) 0.07 K/mcL (0.00-0.70); Eosinophils % (Auto) 1.2 % (0.0-7.0); Granulocytes % (Auto) 74.1 % (38.0-78.0); Hematocrit 39.1 % (40.1-51.0); Hemoglobin 13.1 g/dL (13.7-17.5); Lymphocytes # (Auto) 0.81 K/mcL (1.50-4.80); Mean Cell Volume 94.2 fL (80.0-100.0); Mean Corpuscular HGB Conc 33.5 g/dL (31.0-36.0); Mean Platelet Volume 10.8 fL (7.4-10.4); Monocytes # (Auto) 0.59 K/mcL (0.10-0.90); Monocytes % (Auto) 10.2 % (1.0-12.0); Platelet Count 111 K/mcL (140-440); RBC 4.15 M/mcL (4.63-6.08); Red Cell Distribution Width 14.9 % (11.5-14.5); WBC 5.8 K/mcL (4.50-11.00)
[2019-08-19 07:14] LABS: ALT/SGPT 28 U/l (0-40); AST/SGOT 65 U/l (0-37); Albumin 3.7 gm/dL (3.2-5.2); Albumin/Globulin Ratio 1.2 (1.0-2.3); Alkaline Phosphatase 62 U/L (39-117); Bilirubin,Direct 0.3 mg/dL (0.0-0.3); Bilirubin,Total 0.9 mg/dL (0.0-1.0); Calcium 8.1 mg/dl (8.6-10.4); Carbon Dioxide 24 mmol/L (22-30); Chloride 99 mmol/L (96-108); Globulin 3.2 gm/dL (2.2-3.7); Glomerular Filtration Rate 96; Glucose 135 mg/dL (70-105); Lactate Dehydrogenase 278 U/L (94-250); Triglycerides 151 mg/dl (<150); Uric Acid 4.1 mg/dL (2.5-8.0)
[2019-08-19 07:19] LABS: Blood Urea Nitrogen 6 mg/dl (8-23)
[2019-08-19] MEDS: CARVEDILOL 3.125 MG TABLET PO SCH (07:58)
[2019-08-19] MEDS: FOLIC ACID 1 MG TABLET PO SCH (07:58)
[2019-08-19] MEDS: LOSARTAN 50 MG TABLET PO SCH (07:58)
[2019-08-19] MEDS: MULTIVIT,THER IRON,CA,FA & MIN 1 TABLET PO SCH (07:58)
[2019-08-19] MEDS: SIMVASTATIN 20 MG TABLET PO SCH (07:59)
[2019-08-19] MEDS: THIAMINE 100 MG TABLET PO SCH (07:59)
[2019-08-19] MEDS: amLODIPine 10 MG TABLET PO SCH (07:59)
[2019-08-19] MEDS: CLOPIDOGREL 75 MG TABLET PO SCH (07:59)
[2019-08-19] MEDS: BRIMONIDINE OPHTH DROPS 1 GTT BOTTLE 5ML OU SCH ×2 (08:50→20:40)
[2019-08-19] MEDS: ENOXAPARIN 40 MG/0.4 ML SYRINGE SQ SCH (08:51)
--- NOTE | 2019-08-19 12:51 | Internal Med Progress Note ---
Medical - PN: Subj Patient information: Note initiated : 08/19/19 at 12:49 pm Service Date, if different from initiated Date: [] Patient: Sebastián Valentino a 68 y/o M admitted on 08/16/19 for Fall. Chief Complaint: [] Interval history: 08/16 Mr. Valentino is a 68 year old M who presents the ED after having a syncopal epi sode. Per the history from the patient and his he seemed to be doing well yesterday. He had a sandwich from the sub-shop around 4 PM. Woke up in the morning and did not have breakfast which was unusual for him sound like he just did not have an appetite. And then later in the day around lunchtime he started having some nausea vomiting 3-4 episodes of clear fluid or and yellow fluid. He went down to go to the bathroom and was sitting on the toilet having a bowel movement was last thing he remembers. Next his heard the dog barking and went down found him on the ground by the toilet. Patient seemed confused after awakening and had a hard time remember events and also the year as asked by . He is very weak and his collection could not get him into a car so she called 911. He is never had an episode like this before. His that he is not anything to eat or drink since yesterday at 4 AM. In the ED was evaluated and he was sinus rhythm on the monitor. Labs were not very revealing except for he did have an elevated lactate at 10 which was repeated an hour later found to be 5. Chest x-ray was unrevealing. Urinalysis with some ketones hyaline cast protein CT of the brain showed no acute findings but did show moderate atrophy with chronic ischemic changes and some remote letter could infarcts in the cerebral white matter basal ganglia. Denies any chest pain or abdominal pain or shortness of breath around bowel movement or dysuria. No coughing. After several liters IV fluids in the ER he started to clear up with his mentation. 08/17 Per nurses he had hallucinations and elevated CIWA scores last night. Has tremors to both arms, per notes he has mild tremors each morning but it is more pronounced at this time. He does have underlying cerebral compromise per CT showing moderate atrophy chronic ischemic changes and few remote lacunar infarcts. seems to be doing better this morning. Patient states he feels 100% better. Rhythm sinus on the monitor. 08/18 The patient's provides further history that the patient has likely 10-12 ounces of hard alcohol a day, though she suspects it may be more. He continued to have elevated CIWA scores throughout the afternoon and evening last night. Required 11 mg of lorazepam on days yesterday, a similar amount overnight. This morning remains with delirium. Continue to have significant lorazepam needs for delirium and agitation yesterday. Yesterday evening, started on Precedex with good effect. Not required further lorazepam. This morning on low-dose Precedex with minimal agitation. Requiring oxygen mask at 2 L to maintain saturations. Pertinent ROS: Unobtainable due to delirium - Constitutional Vitals: Vital Signs Temp Pulse Resp BP Pulse Ox 97 F 78 14 132/83 91 08/19/19 12:00 08/18/19 08:41 08/19/19 12:00 08/19/19 12:00 08/19/19 12:00 Period Temp Pulse Resp BP Sys/Masters Pulse Ox Last 24 Hr 97 F-98.8 F 06-11 90-167/47-125 91-100 Intake and Output 08/18/19 08/19/19 08/19/19 21:59 05:59 13:59 Intake Total 509.0909 1033 6 Output Total 325 1850 Balance 184.0909 -817 6 Weight 142 lb Intake & Output: Intake & Output 08/18/19 08/19/19 08/19/19 21:59 05:59 13:59 Intake Total 509.0909 1033 6 Output Total 325 1850 Balance 184.0909 -817 6 Weight 142 lb Intake: IV 509.0909 1033 6 Precedex 400 Mcg/100 ml 33 6 Dextrose 400 Mcg In Premix 1 Bag @ 0.2 MCG/KG/HR 3.221 mls/ hr IV .Q24H [facility] Rx#:[id number] Dextrose 5%-Ns IV Solution 1, 1000 000 ml @ 75 mls/hr IV .[id number] [facility] Rx#:[id number] Potassium Phosphate 40 Meq In 509.0909 Dextrose 5% in Water 500 ml @ 127.273 mls/hr IV ONCE ONE Rx#: [id number] Output: Urine Catheter Amount 325 1850 Other: Urine Appearance Clear Clear Urine Color Dark Yellow Dark Yellow Urine Odor Normal Exam: General: Less agitated, sedated Chest: Clear bilaterally, intermittent bradypnea Cardiovascular: Regular, no edema Abdomen: Soft Neuro: Sedated, intermittently moves all extremities Medical - PN: Obj Da - Labs CBC & Chem 7: 08/19/19 04:53 08/19/19 04:53 Labs: Abnormal Lab Results 08/19/19 08/19/19 08/18/19 04:53 04:53 05:11 RBC 4.15 L 3.99 L Hgb 13.1 L 12.3 L Hct 39.1 L 38.1 L MCV RDW 14.9 H 15.3 H Plt Count 111 L 104 L MPV 10.8 H 11.6 H Gran % Lymph % (Auto) 14.0 L Gran # Lymph # (Auto) 0.81 L 1.09 L Seg Neutrophils % Lymphocytes % Platelet Estimate VBG Lactic Acid Potassium 2.6 L* Chloride Carbon Dioxide Anion Gap BUN 6 L Glucose 135 H Uric Acid Calcium 8.1 L Phosphorus Magnesium 1.4 L Total Bilirubin Direct Bilirubin GGT 452 H AST 65 H ALT Lactate Dehydrogenase 278 H Total Protein Globulin Triglycerides 151 H Urine Protein Urine Glucose (UA) Urine Ketones Urine Occult Blood Hyaline Casts 08/18/19 08/17/19 08/17/19 05:10 04:38 04:38 RBC Hgb Hct MCV RDW Plt Count MPV Gran % Lymph % (Auto) Gran # Lymph # (Auto) Seg Neutrophils % Lymphocytes % Platelet Estimate VBG Lactic Acid 2.8 H Potassium 3.0 L Chloride Carbon Dioxide Anion Gap 19.0 H 19.0 H BUN 6 L Glucose 63 L Uric Acid 9.1 H Calcium 7.8 L 8.3 L Phosphorus 2.4 L Magnesium 1.5 L Total Bilirubin 1.2 H Direct Bilirubin 0.4 H GGT 431 H 496 H AST 64 H 95 H ALT Lactate Dehydrogenase 298 H 274 H Total Protein Globulin Triglycerides 194 H Urine Protein Urine Glucose (UA) Urine Ketones Urine Occult Blood Hyaline Casts 08/17/19 08/17/19 08/16/19 04:38 04:34 22:34 RBC 4.21 L Hgb 13.1 L Hct 39.3 L MCV RDW 15.2 H Plt Count 135 L MPV 11.2 H Gran % 80.2 H Lymph % (Auto) 11.5 L Gran # Lymph # (Auto) 0.98 L Seg Neutrophils % 82 H Lymphocytes % 12 L Platelet Estimate Decreased A VBG Lactic Acid 2.3 H Potassium Chloride Carbon Dioxide Anion Gap BUN Glucose Uric Acid Calcium Phosphorus Magnesium Total Bilirubin Direct Bilirubin GGT AST ALT Lactate Dehydrogenase Total Protein Globulin Triglycerides Urine Protein Urine Glucose (UA) Urine Ketones Urine Occult Blood Hyaline Casts 08/16/19 08/16/19 08/16/19 19:43 18:13 18:00 RBC Hgb Hct MCV RDW Plt Count MPV Gran % Lymph % (Auto) Gran # Lymph # (Auto) Seg Neutrophils % 83 H Lymphocytes % 1 L Platelet Estimate VBG Lactic Acid 5.1 H* Potassium Chloride Carbon Dioxide Anion Gap BUN Glucose Uric Acid Calcium Phosphorus Magnesium Total Bilirubin Direct Bilirubin GGT AST ALT Lactate Dehydrogenase Total Protein Globulin Triglycerides Urine Protein 100 A Urine Glucose (UA) 50 A Urine Ketones 5/tr A Urine Occult Blood 0.03 A Hyaline Casts 5 H 08/16/19 08/16/19 08/16/19 18:00 18:00 18:00 RBC 4.53 L Hgb Hct MCV 39.8 L RDW 15.4 H Plt Count MPV 10.5 H Gran % 91.8 H Lymph % (Auto) 4.8 L Gran # 8.71 H Lymph # (Auto) 0.46 L Seg Neutrophils % Lymphocytes % Platelet Estimate VBG Lactic Acid 10.4 H* Potassium Chloride 92 L Carbon Dioxide 16 L Anion Gap 29.0 H BUN 7 L Glucose 183 H Uric Acid Calcium Phosphorus Magnesium Total Bilirubin 1.1 H Direct Bilirubin GGT AST 140 H ALT 52 H Lactate Dehydrogenase Total Protein 8.6 H Globulin 4.1 H Triglycerides Urine Protein Urine Glucose (UA) Urine Ketones Urine Occult Blood Hyaline Casts Meds: Medications Acetaminophen (Tylenol) 650 mg PO Q6HP PRN PRN Reason: PAIN/FEVER > 101 Last Admin: 08/18/19 10:04 Dose: 650 mg Documented by: Albuterol/Ipratropium (Duoneb) 3 ml NEB Q4HP PRN PRN Reason: Shortness Of Breath Amlodipine Besylate (Norvasc) 10 mg PO DAILY [facility] Last Admin: 08/19/19 07:59 Dose: Not Given Documented by: Brimonidine Tartrate (Alphagan P Ophth Drops) 1 gtt OU BID [facility] Last Admin: 08/19/19 08:50 Dose: 1 gtt Documented by: Carvedilol (Coreg) 3.125 mg PO [facility] Last Admin: 08/19/19 07:58 Dose: Not Given Documented by: Clopidogrel Bisulfate (Plavix) 75 mg PO DAILY [facility] Last Admin: 08/19/19 07:59 Dose: Not Given Documented by: Enoxaparin Sodium (Lovenox) 40 mg SQ DAILY [facility] Last Admin: 08/19/19 08:51 Dose: 40 mg Documented by: Folic Acid (Folic Acid) 1 mg PO DAILY [facility] Last Admin: 08/19/19 07:58 Dose: Not Given Documented by: Potassium Chloride 40 meq/ (Dextrose) 520 mls @ 130 mls/hr IV UD PRN PRN Reason: Potassium < 3 Last Admin: 08/19/19 08:12 Dose: 130 mls/hr Documented by: Magnesium Sulfate (Magnesium Sulfate) 2 gm in 50 mls @ 50 mls/hr IV UD PRN PRN Reason: Magnesium </= 1.6 Last Admin: 08/19/19 08:12 Dose: 50 mls/hr Documented by: Dextrose/Sodium Chloride (Dextrose 5%-Ns Iv Solution) 1,000 mls @ 75 mls/hr IV .[id number] [facility] Last Admin: 08/19/19 00:32 Dose: 75 mls/hr Documented by: Dexmedetomidine HCl 400 mcg/ (Premix) 100 mls @ 3.221 mls/hr IV .Q24H [facility]; Protocol Last Titration: 08/19/19 06:25 Dose: 0.4 mcg/kg/hr, 6.441 mls/hr Documented by: Iron Carb/Multivit/Real Estate Officer/Folic Acid (Multivitamin W/Minerals) 1 tab PO DAILY [facility] Last Admin: 08/19/19 07:58 Dose: Not Given Documented by: Labetalol HCl (Trandate) 0 mg IV Q2HP PRN PRN Reason: Hypertension Latanoprost (Xalatan Ophth Drops) 1 gtt OU HS [facility] Last Admin: 08/18/19 20:44 Dose: Not Given Documented by: Lorazepam (Ativan) 1 - 4 mg IV Q1HP PRN; Protocol PRN Reason: Alcohol Withdrawal Last Admin: 08/18/19 20:43 Dose: 4 mg Documented by: Losartan Potassium (Cozaar) 100 mg PO DAILY [facility] Last Admin: 08/19/19 07:58 Dose: Not Given Documented by: Ondansetron HCl (Zofran) 4 mg IV Q4HP PRN PRN Reason: Nausea And Vomiting Polyethylene Glycol (Miralax) 17 gm PO DAILYP PRN PRN Reason: Constipation Potassium Chloride (Kdur) 40 meq PO UD PRN PRN Reason: Potssium is 3-3.5 Last Admin: 08/17/19 09:31 Dose: 40 meq Documented by: Potassium Chloride (Kdur) 40 meq PO UD PRN PRN Reason: Potassium < 3 Senna (Senokot) 2 tab PO DAILYP PRN PRN Reason: Constipation Simvastatin (Zocor) 20 mg PO DAILY [facility] Last Admin: 08/19/19 07:59 Dose: Not Given Documented by: Sodium Chloride (Saline Flush) 10 ml IV Q8 [facility] Last Admin: 08/19/19 05:05 Dose: 10 ml Documented by: Thiamine HCl (Vitamin B1) 100 mg PO QDAY [facility] Last Admin: 08/19/19 07:59 Dose: Not Given Documented by: Medical - PN: A/P - Time Spent With Patient Total time spent is greater than 50% in coordination of care (as documented) at patient's floor/unit and/or counseling patient: - Narrative A/P Narrative: A: *Encephalopathy: improved in ED after IVF, worsened with onset of alcohol withdrawal *ETOH use with w/d: *Syncope: History sounds like a vasovagal episode, occurring on commode -telemetry shows NSR, troponin negative -significantly elevated lactate, thus seizure remains in the differential as does arrhythmia, other *AG Med acidosis 2/2 Lactic acidosis: 2/2 volume depletions vs Infection (no source found) vs query seizure -Resolved *volume depletion: Resolved *N/V: ?gastroenteritis vs other: Resolved *h/o diastolic CHF grade I: *h/o CVA, noted on CT brain showing moderate atrophy, chronic ischemic changes and old lacunar infarcts *h/o artery stenosis: On Plavix and statin *HTN: On Coreg Norvasc and losartan *mild transaminitis: similar to outpt labs from last Fall -Liver ultrasound compatible with fatty changes -Given degree of withdrawal, suspect due to alcohol -Hepatitis panel negative *Electrolyte imbalance: P: -Continue with IVF, patient remains n.p.o. -Continue Precedex with CIWA for breakthrough withdrawal symptoms -Continue to withhold antibiotics as no source/afebrile/low PCT/no leukocytosis -PRN electrolyte replacement -cont home BP meds as able -cont Plavix/statin as able -pt/ot as able -ppx: lovenox DNR
[2019-08-19 17:52] LABS: ALT/SGPT 30 U/l (0-40); AST/SGOT 63 U/l (0-37); Albumin 3.9 gm/dL (3.2-5.2); Albumin/Globulin Ratio 1.2 (1.0-2.3); Alkaline Phosphatase 59 U/L (39-117); Bilirubin,Direct < 0.2 mg/dL (0.0-0.3); Bilirubin,Total 0.9 mg/dL (0.0-1.0); Blood Urea Nitrogen 4 mg/dl (8-23); Calcium 7.9 mg/dl (8.6-10.4); Carbon Dioxide 23 mmol/L (22-30); Chloride 95 mmol/L (96-108); Globulin 3.3 gm/dL (2.2-3.7); Glomerular Filtration Rate 103; Glucose 107 mg/dL (70-105); Lactate Dehydrogenase 417 U/L (94-250); Phosphorous 2.3 mg/dL (2.7-4.5); Triglycerides 143 mg/dl (<150); Uric Acid 3.7 mg/dL (2.5-8.0)
[2019-08-19] MEDS ORDERED: POTASSIUM CHLORIDE 40 MEQ in DEXTROSE 5% IN WATER 500 ML IV ONE (17:59)
[2019-08-19] MEDS ORDERED: MAGNESIUM SULFATE 2 GM/50 ML BAG IV ONE ×2 (18:02→20:30)
[2019-08-19] MEDS ORDERED: POTASSIUM PHOSPHATE 40 MEQ in DEXTROSE 5% IN WATER 500 ML IV ONE (18:02)
[2019-08-19] MEDS: DEXMEDETOMIDINE 400 MCG in PREMIX 1 BAG IV SCH (18:21)
[2019-08-19] MEDS ORDERED: MAGNESIUM SULFATE 4 GM/100 ML BAG IV ONE (19:00)
[2019-08-19] MEDS ORDERED: POTASSIUM PHOSPHATE 66 MEQ/15 ML VIAL IV ONE (19:50)
[2019-08-19] MEDS: LATANOPROST OPHTH DROPS 2.5ML BOTTLE OU SCH (20:44)
[2019-08-20] MEDS: 0.9 % SODIUM CHLORIDE 250 ML IV SCH ×2 (00:37→14:29)
[2019-08-20] MEDS: LORazepam 2 MG/ML VIAL IV PRN ×2 (01:03→01:47)
[2019-08-20] MEDS ORDERED: 0.9 % SODIUM CHLORIDE 1,000 ML IV ONE (02:55)
[2019-08-20] MEDS: 0.9 % SODIUM CHLORIDE 10 ML SYRINGE IV SCH ×3 (06:00→22:05)
[2019-08-20] MEDS: CARVEDILOL 3.125 MG TABLET PO SCH (07:09)
[2019-08-20] MEDS: LOSARTAN 50 MG TABLET PO SCH (07:09)
[2019-08-20] MEDS: DEXMEDETOMIDINE 400 MCG in PREMIX 1 BAG IV SCH ×3 (07:09→22:44)
[2019-08-20] MEDS: FOLIC ACID 1 MG TABLET PO SCH (07:10)
[2019-08-20] MEDS: THIAMINE 100 MG TABLET PO SCH (07:10)
[2019-08-20] MEDS: amLODIPine 10 MG TABLET PO SCH (07:10)
[2019-08-20] MEDS: MULTIVIT,THER IRON,CA,FA & MIN 1 TABLET PO SCH (07:10)
[2019-08-20] MEDS: CLOPIDOGREL 75 MG TABLET PO SCH (07:10)
[2019-08-20] MEDS: SIMVASTATIN 20 MG TABLET PO SCH (07:10)
[2019-08-20] MEDS: DEXTROSE 5%-NS 1,000 ML IV SCH ×3 (08:00→19:57)
[2019-08-20] MEDS: ENOXAPARIN 40 MG/0.4 ML SYRINGE SQ SCH (08:07)
[2019-08-20] MEDS: BRIMONIDINE OPHTH DROPS 1 GTT BOTTLE 5ML OU SCH ×2 (08:07→22:04)
[2019-08-20 08:28] LABS: Basophils # (Auto) 0.02 K/mcL (0.00-0.30); Basophils % (Auto) 0.3 % (0.0-2.0); Eosinophils # (Auto) 0 K/mcL (0.00-0.70); Eosinophils % (Auto) 0 % (0.0-7.0); Granulocytes % (Auto) 82.6 % (38.0-78.0); Hematocrit 39.4 % (40.1-51.0); Hemoglobin 13.4 g/dL (13.7-17.5); Lymphocytes # (Auto) 0.33 K/mcL (1.50-4.80); Lymphocytes % (Auto) 5.6 % (15.5-49.0); Mean Cell Volume 91.8 fL (80.0-100.0); Mean Platelet Volume 10.5 fL (7.4-10.4); Monocytes # (Auto) 0.68 K/mcL (0.10-0.90); Monocytes % (Auto) 11.5 % (1.0-12.0); RBC 4.29 M/mcL (4.63-6.08); Red Cell Distribution Width 14.6 % (11.5-14.5); WBC 5.9 K/mcL (4.50-11.00)
[2019-08-20 08:29] LABS: Platelet Count 108 K/mcL (140-440)
[2019-08-20 08:43] LABS: ALT/SGPT 26 U/l (0-40); AST/SGOT 59 U/l (0-37); Albumin 3.1 gm/dL (3.2-5.2); Albumin/Globulin Ratio 1.1 (1.0-2.3); Alkaline Phosphatase 62 U/L (39-117); Bilirubin,Direct 0.5 mg/dL (0.0-0.3); Bilirubin,Total 1.1 mg/dL (0.0-1.0); Calcium 7.4 mg/dl (8.6-10.4); Carbon Dioxide 23 mmol/L (22-30); Chloride 98 mmol/L (96-108); Globulin 2.9 gm/dL (2.2-3.7); Glucose 141 mg/dL (70-105); Lactate Dehydrogenase 219 U/L (94-250); Triglycerides 146 mg/dl (<150); Uric Acid 3.8 mg/dL (2.5-8.0)
[2019-08-20 08:51] LABS: Blood Urea Nitrogen 7 mg/dl (8-23); Glomerular Filtration Rate 76; Phosphorous 1.5 mg/dL (2.7-4.5)
[2019-08-20] MEDS ORDERED: THIAMINE 100 MG in 0.9 % SODIUM CHLORIDE 50 ML IV ONE (09:34)
[2019-08-20] MEDS ORDERED: POTASSIUM PHOSPHATE 40 MEQ in DEXTROSE 5% IN WATER 500 ML IV ONE (10:00)
[2019-08-20] MEDS: CHLORHEXIDINE GLUCONATE 1 ML ORAL.SOL SWABMOUTH SCH ×2 (11:01→22:04)
--- NOTE | 2019-08-20 11:40 | Internal Med Progress Note ---
Medical - PN: Subj Patient information: Note initiated : 08/20/19 at 11:38 am Service Date, if different from initiated Date: [] Patient: Sebastián Valentino a 68 y/o M admitted on 08/16/19 for Fall. Chief Complaint: [] Interval history: 08/16 Mr. Valentino is a 68 year old M who presents the ED after having a syncopal epi sode. Per the history from the patient and his he seemed to be doing well yesterday. He had a sandwich from the sub-shop around 4 PM. Woke up in the morning and did not have breakfast which was unusual for him sound like he just did not have an appetite. And then later in the day around lunchtime he started having some nausea vomiting 3-4 episodes of clear fluid or and yellow fluid. He went down to go to the bathroom and was sitting on the toilet having a bowel movement was last thing he remembers. Next his heard the dog barking and went down found him on the ground by the toilet. Patient seemed confused after awakening and had a hard time remember events and also the year as asked by . He is very weak and his collection could not get him into a car so she called 911. He is never had an episode like this before. His that he is not anything to eat or drink since yesterday at 4 AM. In the ED was evaluated and he was sinus rhythm on the monitor. Labs were not very revealing except for he did have an elevated lactate at 10 which was repeated an hour later found to be 5. Chest x-ray was unrevealing. Urinalysis with some ketones hyaline cast protein CT of the brain showed no acute findings but did show moderate atrophy with chronic ischemic changes and some remote letter could infarcts in the cerebral white matter basal ganglia. Denies any chest pain or abdominal pain or shortness of breath around bowel movement or dysuria. No coughing. After several liters IV fluids in the ER he started to clear up with his mentation. 08/17 Per nurses he had hallucinations and elevated CIWA scores last night. Has tremors to both arms, per notes he has mild tremors each morning but it is more pronounced at this time. He does have underlying cerebral compromise per CT showing moderate atrophy chronic ischemic changes and few remote lacunar infarcts. seems to be doing better this morning. Patient states he feels 100% better. Rhythm sinus on the monitor. 08/18 The patient's provides further history that the patient has likely 10-12 ounces of hard alcohol a day, though she suspects it may be more. He continued to have elevated CIWA scores throughout the afternoon and evening last night. Required 11 mg of lorazepam on days yesterday, a similar amount overnight. This morning remains with delirium. Continue to have significant lorazepam needs for delirium and agitation yesterday. Yesterday evening, started on Precedex with good effect. Not required further lorazepam. This morning on low-dose Precedex with minimal agitation. Requiring oxygen mask at 2 L to maintain saturations. 08/19 Patient became hypotensive overnight while on Precedex. Responded to holding Precedex and giving fluids. Now back on Precedex secondary to increasing agitation and delirium with good blood pressures. On oxygen to maintain saturations. Pertinent ROS: Unobtainable due to patient's delirium - Constitutional Vitals: Vital Signs Temp Pulse Resp BP Pulse Ox 99.0 F 115 H 20 92/72 96 08/20/19 04:00 08/20/19 03:00 08/20/19 07:22 08/20/19 07:00 08/20/19 07:22 Period Temp Pulse Resp BP Sys/Masters Pulse Ox Last 24 Hr 97 F-99.0 F 115 14-33 56-159/22-98 82-100 Intake and Output 08/19/19 08/20/19 08/20/19 21:59 05:59 13:59 Intake Total 1061 1653.0909 1000 Output Total 1675 225 Balance -614 1428.0909 1000 Weight 146 lb 3.2 oz Intake & Output: Intake & Output 08/19/19 08/20/19 08/20/19 21:59 05:59 13:59 Intake Total 1061 1653.0909 1000 Output Total 1675 225 Balance -614 1428.0909 1000 Weight 146 lb 3.2 oz Intake: IV 1061 1653.0909 1000 Sodium Chloride 0.9% 1,000 ml @ 1000 Wide Open IV [facility] Rx#: [id number] Precedex 400 Mcg/100 ml 61 44 Dextrose 400 Mcg In Premix 1 Bag @ 0.2 MCG/KG/HR 3.221 mls/ hr IV .Q24H [facility] Rx#:[id number] Dextrose 5%-Ns IV Solution 1, 1000 1000 000 ml @ 75 mls/hr IV .[id number] [facility] Rx#:[id number] MAGNESIUM SULFATE 4 gm In 100 100 ml @ 25 mls/hr IV ONCE ONE Rx#: [id number] Potassium Phosphate 40 Meq In 509.0909 Dextrose 5% in Water 500 ml @ 127.273 mls/hr IV ONCE ONE Rx#: [id number] Output: Urine Catheter Amount 1675 225 Other: Urine Appearance Clear Clear Urine Color Bright Yellow Dark Yellow Urine Odor Normal Strong Exam: General: Remains sedated, moving around in bed Chest: Clear Cardiovascular: Regular, sinus on monitor Abdomen: Soft, no apparent tenderness Neuro: Sedated, does move all extremities equally Medical - PN: Obj Da - Labs CBC & Chem 7: 08/20/19 07:20 08/20/19 07:20 Labs: Abnormal Lab Results 08/20/19 08/20/19 08/19/19 07:20 07:20 16:08 RBC 4.29 L Hgb 13.4 L Hct 39.4 L RDW 14.6 H Plt Count 108 L MPV 10.5 H Gran % 82.6 H Lymph % (Auto) 5.6 L Lymph # (Auto) 0.33 L Sodium 132 L Potassium 2.7 L* Chloride 95 L Anion Gap BUN 7 L 4 L Creatinine 0.6 L Glucose 141 H 107 H Calcium 7.4 L 7.9 L Phosphorus 1.5 L 2.3 L Magnesium 1.5 L Total Bilirubin 1.1 H Direct Bilirubin 0.5 H GGT 408 H 455 H AST 59 H 63 H Lactate Dehydrogenase 417 H Albumin 3.1 L Triglycerides 08/19/19 08/19/19 08/18/19 04:53 04:53 05:11 RBC 4.15 L 3.99 L Hgb 13.1 L 12.3 L Hct 39.1 L 38.1 L RDW 14.9 H 15.3 H Plt Count 111 L 104 L MPV 10.8 H 11.6 H Gran % Lymph % (Auto) 14.0 L Lymph # (Auto) 0.81 L 1.09 L Sodium Potassium 2.6 L* Chloride Anion Gap BUN 6 L Creatinine Glucose 135 H Calcium 8.1 L Phosphorus Magnesium 1.4 L Total Bilirubin Direct Bilirubin GGT 452 H AST 65 H Lactate Dehydrogenase 278 H Albumin Triglycerides 151 H 08/18/19 05:10 RBC Hgb Hct RDW Plt Count MPV Gran % Lymph % (Auto) Lymph # (Auto) Sodium Potassium 3.0 L Chloride Anion Gap 19.0 H BUN Creatinine Glucose 63 L Calcium 7.8 L Phosphorus 2.4 L Magnesium Total Bilirubin Direct Bilirubin GGT 431 H AST 64 H Lactate Dehydrogenase 298 H Albumin Triglycerides 194 H Meds: Medications Acetaminophen (Tylenol) 650 mg PO Q6HP PRN PRN Reason: PAIN/FEVER > 101 Last Admin: 08/18/19 10:04 Dose: 650 mg Documented by: Albuterol/Ipratropium (Duoneb) 3 ml NEB Q4HP PRN PRN Reason: Shortness Of Breath Amlodipine Besylate (Norvasc) 10 mg PO DAILY [facility] Last Admin: 08/20/19 07:10 Dose: Not Given Documented by: Brimonidine Tartrate (Alphagan P Ophth Drops) 1 gtt OU BID [facility] Last Admin: 08/20/19 08:07 Dose: 1 gtt Documented by: [facility] ([facility]) [facility] Last Admin: 08/20/19 07:09 Dose: Not Given Documented by: Chlorhexidine Gluconate (Peridex) 15 ml SWABMOUTH BID [facility] Last Admin: 08/20/19 11:01 Dose: 15 ml Documented by: Clopidogrel Bisulfate (Plavix) 75 mg PO DAILY [facility] Last Admin: 08/20/19 07:10 Dose: Not Given Documented by: Enoxaparin Sodium (Lovenox) 40 mg SQ DAILY [facility] Last Admin: 08/20/19 08:07 Dose: 40 mg Documented by: Folic Acid (Folic Acid) 1 mg PO DAILY [facility] Last Admin: 08/20/19 07:10 Dose: Not Given Documented by: Dextrose/Sodium Chloride (Dextrose 5%-Ns Iv Solution) 1,000 mls @ 75 mls/hr IV .[id number] [facility] Last Admin: 08/20/19 08:00 Dose: 75 mls/hr Documented by: Dexmedetomidine HCl 400 mcg/ (Premix) 100 mls @ 3.221 mls/hr IV .Q24H [facility]; Protocol Last Admin: 08/20/19 07:09 Dose: Not Given Documented by: Sodium Chloride (Sodium Chloride 0.9%) 250 mls @ 20 mls/hr IV .[id number] [facility] Last Admin: 08/20/19 00:37 Dose: 20 mls/hr Documented by: Potassium Chloride 40 meq/ (Dextrose) 520 mls @ 130 mls/hr IV UD PRN PRN Reason: Potassium < / = 3.5 Magnesium Sulfate (Magnesium Sulfate) 2 gm in 50 mls @ 50 mls/hr IV UD PRN PRN Reason: Magnesium </= 1.7 Potassium Phosphate 40 meq/ (Dextrose) 509.0909 mls @ 127.273 mls/hr IV ONCE ONE Stop: 08/20/19 13:59 Last Admin: 08/20/19 10:00 Dose: 127.273 mls/hr Documented by: Potassium Chloride 40 meq/ (Dextrose) 520 mls @ 130 mls/hr IV ONCE ONE Stop: 08/20/19 17:59 Thiamine HCl 100 mg/ Sodium (Chloride) 51 mls @ 50 mls/hr IV DAILY [facility] Stop: 08/23/19 10:02 Iron Carb/Multivit/Petroleum/Folic Acid (Multivitamin W/Minerals) 1 tab PO DAILY [facility] Last Admin: 08/20/19 07:10 Dose: Not Given Documented by: Labetalol HCl (Trandate) 0 mg IV Q2HP PRN PRN Reason: Hypertension Latanoprost (Xalatan Ophth Drops) 1 gtt OU HS [facility] Last Admin: 08/19/19 20:44 Dose: Not Given Documented by: Lorazepam (Ativan) 1 - 4 mg IV Q1HP PRN; Protocol PRN Reason: Alcohol Withdrawal Last Admin: 08/20/19 01:47 Dose: 2 mg Documented by: Losartan Potassium (Cozaar) 100 mg PO DAILY [facility] Last Admin: 08/20/19 07:09 Dose: Not Given Documented by: Ondansetron HCl (Zofran) 4 mg IV Q4HP PRN PRN Reason: Nausea And Vomiting Polyethylene Glycol (Miralax) 17 gm PO DAILYP PRN PRN Reason: Constipation Potassium Chloride (Kdur) 40 meq PO UD PRN PRN Reason: Potssium is 3-3.5 Last Admin: 08/17/19 09:31 Dose: 40 meq Documented by: Potassium Chloride (Kdur) 40 meq PO UD PRN PRN Reason: Potassium < 3 Senna (Senokot) 2 tab PO DAILYP PRN PRN Reason: Constipation Simvastatin (Zocor) 20 mg PO DAILY [facility] Last Admin: 08/20/19 07:10 Dose: Not Given Documented by: Sodium Chloride (Saline Flush) 10 ml IV Q8 [facility] Last Admin: 08/20/19 06:00 Dose: 10 ml Documented by: Medical - PN: A/P - Narrative A/P Narrative: A: *Encephalopathy: improved in ED after IVF, worsened with onset of alcohol withdrawal *ETOH use with w/d: -Remains with severe alcohol withdrawal with delirium *Syncope: History sounds like a vasovagal episode, occurring on commode -telemetry shows NSR, troponin negative -significantly elevated lactate, thus seizure remains in the differential as does arrhythmia, other *AG Med acidosis 2/2 Lactic acidosis: 2/2 volume depletions vs Infection (no s ource found) vs query seizure -Resolved *volume depletion: Resolved *N/V: ?gastroenteritis vs other: Resolved *h/o diastolic CHF grade I: *h/o CVA, noted on CT brain showing moderate atrophy, chronic ischemic changes and old lacunar infarcts *h/o artery stenosis: On Plavix and statin *HTN: On Coreg Norvasc and losartan *mild transaminitis: similar to outpt labs from last Fall -Liver ultrasound compatible with fatty changes -Given degree of withdrawal, suspect due to alcohol -Hepatitis panel negative *Electrolyte imbalance: P: -Continue with dextrose containing IVF, patient remains n.p.o. -Continue Precedex with CIWA for breakthrough withdrawal symptoms -IV thiamine -Continue to withhold antibiotics as no source/afebrile/low PCT/no leukocytosis -PRN electrolyte replacement -cont home BP meds as able -cont Plavix/statin as able -pt/ot as able -ppx: lovenox DNR
[2019-08-20] MEDS ORDERED: POTASSIUM CHLORIDE 40 MEQ in DEXTROSE 5% IN WATER 500 ML IV ONE (14:00)
[2019-08-20] MEDS: LATANOPROST OPHTH DROPS 2.5ML BOTTLE OU SCH (22:04)
[2019-08-21] MEDS: 0.9 % SODIUM CHLORIDE 250 ML IV SCH ×3 (00:21→15:58)
[2019-08-21 05:14] LABS: Basophils # (Auto) 0.01 K/mcL (0.00-0.30); Basophils % (Auto) 0.2 % (0.0-2.0); Eosinophils # (Auto) 0.01 K/mcL (0.00-0.70); Eosinophils % (Auto) 0.2 % (0.0-7.0); Granulocytes % (Auto) 78.5 % (38.0-78.0); Hematocrit 35.7 % (40.1-51.0); Hemoglobin 12.1 g/dL (13.7-17.5); Lymphocytes # (Auto) 0.65 K/mcL (1.50-4.80); Lymphocytes % (Auto) 10.2 % (15.5-49.0); Mean Corpuscular HGB Conc 33.9 g/dL (31.0-36.0); Mean Platelet Volume 11.1 fL (7.4-10.4); Monocytes # (Auto) 0.69 K/mcL (0.10-0.90); Monocytes % (Auto) 10.9 % (1.0-12.0); Platelet Count 111 K/mcL (140-440); RBC 3.88 M/mcL (4.63-6.08); Red Cell Distribution Width 14.6 % (11.5-14.5); WBC 6.4 K/mcL (4.50-11.00)
[2019-08-21 05:29] LABS: ALT/SGPT 21 U/l (0-40); AST/SGOT 34 U/l (0-37); Albumin 2.8 gm/dL (3.2-5.2); Albumin/Globulin Ratio 0.9 (1.0-2.3); Alkaline Phosphatase 49 U/L (39-117); Bilirubin,Direct 0.4 mg/dL (0.0-0.3); Bilirubin,Total 0.9 mg/dL (0.0-1.0); Blood Urea Nitrogen 8 mg/dl (8-23); Calcium 7.4 mg/dl (8.6-10.4); Carbon Dioxide 21 mmol/L (22-30); Chloride 100 mmol/L (96-108); Glomerular Filtration Rate 96; Glucose 136 mg/dL (70-105); Lactate Dehydrogenase 191 U/L (94-250); Triglycerides 98 mg/dl (<150); Uric Acid 3.1 mg/dL (2.5-8.0)
[2019-08-21 05:34] LABS: Phosphorous 2.1 mg/dL (2.7-4.5)
[2019-08-21] MEDS: DEXTROSE 5%-NS 1,000 ML IV SCH ×4 (05:44→23:03)
[2019-08-21] MEDS: 0.9 % SODIUM CHLORIDE 10 ML SYRINGE IV SCH ×3 (05:45→22:39)
[2019-08-21] MEDS: DEXMEDETOMIDINE 400 MCG in PREMIX 1 BAG IV SCH ×2 (05:53→22:40)
[2019-08-21] MEDS ORDERED: POTASSIUM PHOSPHATE 40 MEQ in DEXTROSE 5% IN WATER 500 ML IV ONE (06:49)
[2019-08-21] MEDS ORDERED: POTASSIUM CHLORIDE 40 MEQ in DEXTROSE 5% IN WATER 500 ML IV ONE (06:49)
[2019-08-21] MEDS: ENOXAPARIN 40 MG/0.4 ML SYRINGE SQ SCH (09:33)
[2019-08-21] MEDS: CHLORHEXIDINE GLUCONATE 1 ML ORAL.SOL SWABMOUTH SCH ×2 (09:33→22:39)
[2019-08-21] MEDS: FOLIC ACID 1 MG TABLET PO SCH (09:59)
[2019-08-21] MEDS: CLOPIDOGREL 75 MG TABLET PO SCH (09:59)
[2019-08-21] MEDS: SIMVASTATIN 20 MG TABLET PO SCH (09:59)
[2019-08-21] MEDS: MULTIVIT,THER IRON,CA,FA & MIN 1 TABLET PO SCH (09:59)
[2019-08-21] MEDS: CARVEDILOL 3.125 MG TABLET PO SCH (09:59)
[2019-08-21] MEDS: amLODIPine 10 MG TABLET PO SCH (09:59)
[2019-08-21] MEDS: LOSARTAN 50 MG TABLET PO SCH (09:59)
[2019-08-21] MEDS: BRIMONIDINE OPHTH DROPS 1 GTT BOTTLE 5ML OU SCH ×2 (10:01→22:38)
[2019-08-21] MEDS: THIAMINE 100 MG in 0.9 % SODIUM CHLORIDE 50 ML IV SCH (11:18)
--- NOTE | 2019-08-21 11:49 | Internal Med Progress Note ---
Medical - PN: Subj Patient information: Note initiated : 08/21/19 at 11:47 am Service Date, if different from initiated Date: [] Patient: Sebastián Valentino a 68 y/o M admitted on 08/16/19 for Fall. Chief Complaint: [] Interval history: 08/16 Mr. Valentino is a 68 year old M who presents the ED after having a syncopal epi sode. Per the history from the patient and his he seemed to be doing well yesterday. He had a sandwich from the sub-shop around 4 PM. Woke up in the morning and did not have breakfast which was unusual for him sound like he just did not have an appetite. And then later in the day around lunchtime he started having some nausea vomiting 3-4 episodes of clear fluid or and yellow fluid. He went down to go to the bathroom and was sitting on the toilet having a bowel movement was last thing he remembers. Next his heard the dog barking and went down found him on the ground by the toilet. Patient seemed confused after awakening and had a hard time remember events and also the year as asked by . He is very weak and his collection could not get him into a car so she called 911. He is never had an episode like this before. His that he is not anything to eat or drink since yesterday at 4 AM. In the ED was evaluated and he was sinus rhythm on the monitor. Labs were not very revealing except for he did have an elevated lactate at 10 which was repeated an hour later found to be 5. Chest x-ray was unrevealing. Urinalysis with some ketones hyaline cast protein CT of the brain showed no acute findings but did show moderate atrophy with chronic ischemic changes and some remote letter could infarcts in the cerebral white matter basal ganglia. Denies any chest pain or abdominal pain or shortness of breath around bowel movement or dysuria. No coughing. After several liters IV fluids in the ER he started to clear up with his mentation. 08/17 Per nurses he had hallucinations and elevated CIWA scores last night. Has tremors to both arms, per notes he has mild tremors each morning but it is more pronounced at this time. He does have underlying cerebral compromise per CT showing moderate atrophy chronic ischemic changes and few remote lacunar infarcts. seems to be doing better this morning. Patient states he feels 100% better. Rhythm sinus on the monitor. 08/18 The patient's provides further history that the patient has likely 10-12 ounces of hard alcohol a day, though she suspects it may be more. He continued to have elevated CIWA scores throughout the afternoon and evening last night. Required 11 mg of lorazepam on days yesterday, a similar amount overnight. This morning remains with delirium. Continue to have significant lorazepam needs for delirium and agitation yesterday. Yesterday evening, started on Precedex with good effect. Not required further lorazepam. This morning on low-dose Precedex with minimal agitation. Requiring oxygen mask at 2 L to maintain saturations. 08/19 Patient became hypotensive overnight while on Precedex. Responded to holding Precedex and giving fluids. Now back on Precedex secondary to increasing agitation and delirium with good blood pressures. On oxygen to maintain saturations. 08/20 Remains on Precedex, still with agitation. Remains afebrile, normal white count. - Constitutional Vitals: Vital Signs Temp Pulse Resp BP Pulse Ox 98.5 F 115 H 25 H 160/85 91 08/21/19 08:01 08/20/19 03:00 08/21/19 08:47 08/21/19 08:01 08/21/19 09:00 Period Temp Pulse Resp BP Sys/Masters Pulse Ox Last 24 Hr 97.4 F-98.5 F 15-31 94-176/59-109 88-100 Intake and Output 08/20/19 08/21/19 08/21/19 21:59 05:59 13:59 Intake Total 1711.0909 796 1000 Output Total 650 800 900 Balance 1061.0909 -4 100 Weight 152 lb 1.6 oz Intake & Output: Intake & Output 08/20/19 08/21/19 08/21/19 21:59 05:59 13:59 Intake Total 1711.0909 796 1000 Output Total 650 800 900 Balance 1061.0909 -4 100 Weight 152 lb 1.6 oz Intake: IV 1711.0909 796 1000 Sodium Chloride 0.9% 250 ml @ 250 177 20 mls/hr IV .[id number] [facility] Rx#: [id number] Precedex 400 Mcg/100 ml 56 99 Dextrose 400 Mcg In Premix 1 Bag @ 0.2 MCG/KG/HR 3.221 mls/ hr IV .Q24H [facility] Rx#:[id number] Dextrose 5%-Ns IV Solution 1, 896 1000 000 ml @ 75 mls/hr IV .[id number] [facility] Rx#:[id number] Potassium Chloride 40 Meq In 520 Dextrose 5% in Water 500 ml @ 130 mls/hr IV ONCE ONE Rx#: [id number] Potassium Phosphate 40 Meq In 509.0909 Dextrose 5% in Water 500 ml @ 127.273 mls/hr IV ONCE ONE Rx#: [id number] Output: Urine Catheter Amount 650 800 900 Other: Urine Appearance Clear Clear Clear Urine Color Light Laura Light Laura Light Laura Urine Odor Strong Strong Uretheral ([place]) Normal Exam: General: Sedated, moving all extremities at times Chest: Clear, respirations are unlabored Cardiovascular: Regular rate and rhythm, no edema Abdomen: Soft Neuro: Sedated, moving extremities and occasionally repositioning self on bed Medical - PN: Obj Da - Labs CBC & Chem 7: 08/21/19 04:15 08/21/19 04:15 Labs: Abnormal Lab Results 08/21/19 08/21/19 08/20/19 04:15 04:15 07:20 RBC 3.88 L Hgb 12.1 L Hct 35.7 L RDW 14.6 H Plt Count 111 L MPV 11.1 H Gran % 78.5 H Lymph % (Auto) 10.2 L Lymph # (Auto) 0.65 L Sodium 132 L Potassium 2.9 L* 2.7 L* Chloride Carbon Dioxide 21 L BUN 7 L Creatinine Glucose 136 H 141 H Calcium 7.4 L 7.4 L Phosphorus 2.1 L 1.5 L Magnesium 1.3 L Total Bilirubin 1.1 H Direct Bilirubin 0.4 H 0.5 H GGT 328 H 408 H AST 59 H Lactate Dehydrogenase Total Protein 5.8 L Albumin 2.8 L 3.1 L Albumin/Globulin Ratio 0.9 L Triglycerides 08/20/19 08/19/19 08/19/19 07:20 16:08 04:53 RBC 4.29 L Hgb 13.4 L Hct 39.4 L RDW 14.6 H Plt Count 108 L MPV 10.5 H Gran % 82.6 H Lymph % (Auto) 5.6 L Lymph # (Auto) 0.33 L Sodium Potassium 2.6 L* Chloride 95 L Carbon Dioxide BUN 4 L 6 L Creatinine 0.6 L Glucose 107 H 135 H Calcium 7.9 L 8.1 L Phosphorus 2.3 L Magnesium 1.5 L 1.4 L Total Bilirubin Direct Bilirubin GGT 455 H 452 H AST 63 H 65 H Lactate Dehydrogenase 417 H 278 H Total Protein Albumin Albumin/Globulin Ratio Triglycerides 151 H 08/19/19 04:53 RBC 4.15 L Hgb 13.1 L Hct 39.1 L RDW 14.9 H Plt Count 111 L MPV 10.8 H Gran % Lymph % (Auto) 14.0 L Lymph # (Auto) 0.81 L Sodium Potassium Chloride Carbon Dioxide BUN Creatinine Glucose Calcium Phosphorus Magnesium Total Bilirubin Direct Bilirubin GGT AST Lactate Dehydrogenase Total Protein Albumin Albumin/Globulin Ratio Triglycerides Meds: Medications Acetaminophen (Tylenol) 650 mg PO Q6HP PRN PRN Reason: PAIN/FEVER > 101 Last Admin: 08/18/19 10:04 Dose: 650 mg Documented by: Albuterol/Ipratropium (Duoneb) 3 ml NEB Q4HP PRN PRN Reason: Shortness Of Breath Amlodipine Besylate (Norvasc) 10 mg PO DAILY [facility] Last Admin: 08/21/19 09:59 Dose: Not Given Documented by: Brimonidine Tartrate (Alphagan P Ophth Drops) 1 gtt OU BID [facility] Last Admin: 08/21/19 10:01 Dose: 1 gtt Documented by: [facility]il[facility] ([facility]g) [facility] Last Admin: 08/21/19 09:59 Dose: Not Given Documented by: Chlorhexidine Gluconate (Peridex) 15 ml SWABMOUTH BID [facility] Last Admin: 08/21/19 09:33 Dose: 15 ml Documented by: Clopidogrel Bisulfate (Plavix) 75 mg PO DAILY [facility] Last Admin: 08/21/19 09:59 Dose: Not Given Documented by: Enoxaparin Sodium (Lovenox) 40 mg SQ DAILY [facility] Last Admin: 08/21/19 09:33 Dose: 40 mg Documented by: Folic Acid (Folic Acid) 1 mg PO DAILY [facility] Last Admin: 08/21/19 09:59 Dose: Not Given Documented by: Dextrose/Sodium Chloride (Dextrose 5%-Ns Iv Solution) 1,000 mls @ 75 mls/hr IV .[id number] [facility] Last Admin: 08/21/19 09:25 Dose: 75 mls/hr Documented by: Dexmedetomidine HCl 400 mcg/ (Premix) 100 mls @ 3.221 mls/hr IV .Q24H [facility]; Protocol Last Admin: 08/21/19 05:53 Dose: 0.4 mcg/kg/hr, 6.441 mls/hr Documented by: Sodium Chloride (Sodium Chloride 0.9%) 250 mls @ 20 mls/hr IV .[id number] [facility] Last Admin: 08/21/19 02:16 Dose: 15 mls/hr Documented by: Potassium Chloride 40 meq/ (Dextrose) 520 mls @ 130 mls/hr IV UD PRN PRN Reason: Potassium < / = 3.5 Magnesium Sulfate (Magnesium Sulfate) 2 gm in 50 mls @ 50 mls/hr IV UD PRN PRN Reason: Magnesium </= 1.7 Thiamine HCl 100 mg/ Sodium (Chloride) 51 mls @ 50 mls/hr IV DAILY [facility] Stop: 08/23/19 10:02 Last Admin: 08/21/19 11:18 Dose: 50 mls/hr Documented by: Iron Carb/Multivit/Trumpet Teacher/Folic Acid (Multivitamin W/Minerals) 1 tab PO DAILY [facility] Last Admin: 08/21/19 09:59 Dose: Not Given Documented by: Labetalol HCl (Trandate) 0 mg IV Q2HP PRN PRN Reason: Hypertension Latanoprost (Xalatan Ophth Drops) 1 gtt OU HS [facility] Last Admin: 08/20/19 22:04 Dose: 1 gtt Documented by: Lorazepam (Ativan) 1 - 4 mg IV Q1HP PRN; Protocol PRN Reason: Alcohol Withdrawal Last Admin: 08/20/19 01:47 Dose: 2 mg Documented by: Losartan Potassium (Cozaar) 100 mg PO DAILY [facility] Last Admin: 08/21/19 09:59 Dose: Not Given Documented by: Ondansetron HCl (Zofran) 4 mg IV Q4HP PRN PRN Reason: Nausea And Vomiting Polyethylene Glycol (Miralax) 17 gm PO DAILYP PRN PRN Reason: Constipation Potassium Chloride (Kdur) 40 meq PO UD PRN PRN Reason: Potssium is 3-3.5 Last Admin: 08/17/19 09:31 Dose: 40 meq Documented by: Potassium Chloride (Kdur) 40 meq PO UD PRN PRN Reason: Potassium < 3 Senna (Senokot) 2 tab PO DAILYP PRN PRN Reason: Constipation Simvastatin (Zocor) 20 mg PO DAILY [facility] Last Admin: 08/21/19 09:59 Dose: Not Given Documented by: Sodium Chloride (Saline Flush) 10 ml IV Q8 [facility] Last Admin: 08/21/19 05:45 Dose: 10 ml Documented by: Medical - PN: A/P - Time Spent With Patient Total time spent is greater than 50% in coordination of care (as documented) at patient's floor/unit and/or counseling patient: - Narrative A/P Narrative: A: *Encephalopathy: improved in ED after IVF, worsened with onset of alcohol withdrawal *ETOH use with w/d: -Remains with severe alcohol withdrawal with delirium *Syncope: History sounds like a vasovagal episode, occurring on commode -telemetry shows NSR, troponin negative -significantly elevated lactate, thus seizure remains in the differential as does arrhythmia, other *AG Med acidosis 2/2 Lactic acidosis: 2/2 volume depletions vs Infection (no source found) vs query seizure -Resolved *volume depletion: Resolved *N/V: ?gastroenteritis vs other: Resolved *h/o diastolic CHF grade I: *h/o CVA, noted on CT brain showing moderate atrophy, chronic ischemic changes and old lacunar infarcts *h/o artery stenosis: On Plavix and statin *HTN: On Coreg Norvasc and losartan *mild transaminitis: similar to outpt labs from last Fall -Liver ultrasound compatible with fatty changes -Given degree of withdrawal, suspect due to alcohol -Hepatitis panel negative *Electrolyte imbalance: P: -Continue with dextrose containing IVF, patient remains n.p.o. -Continue Precedex with CIWA for breakthrough withdrawal symptoms Wake-up trial today with weaning of Precedex to see underlying mental status (08/20) -IV thiamine -Continue to withhold antibiotics as no source/afebrile/low PCT/no leukocytosis -PRN electrolyte replacement -cont home BP meds as able -cont Plavix/statin as able -pt/ot as able -ppx: lovenox DNR
[2019-08-21] MEDS ORDERED: MAGNESIUM SULFATE 2 GM/50 ML BAG IV ONE (14:05)
--- NOTE | 2019-08-21 14:06 | Internal Med Progress Note ---
Medical - PN: Subj Patient information: Note initiated : 08/21/19 at 2:00 pm Service Date, if different from initiated Date: [] Patient: Sebastián Valentino a 68 y/o M admitted on 08/16/19 for Fall. Chief Complaint: [] Interval history: 08/16 Mr. Valentino is a 68 year old M who presents the ED after having a syncopal epi sode. Per the history from the patient and his he seemed to be doing well yesterday. He had a sandwich from the sub-shop around 4 PM. Woke up in the morning and did not have breakfast which was unusual for him sound like he just did not have an appetite. And then later in the day around lunchtime he started having some nausea vomiting 3-4 episodes of clear fluid or and yellow fluid. He went down to go to the bathroom and was sitting on the toilet having a bowel movement was last thing he remembers. Next his heard the dog barking and went down found him on the ground by the toilet. Patient seemed confused after awakening and had a hard time remember events and also the year as asked by . He is very weak and his collection could not get him into a car so she called 911. He is never had an episode like this before. His that he is not anything to eat or drink since yesterday at 4 AM. In the ED was evaluated and he was sinus rhythm on the monitor. Labs were not very revealing except for he did have an elevated lactate at 10 which was repeated an hour later found to be 5. Chest x-ray was unrevealing. Urinalysis with some ketones hyaline cast protein CT of the brain showed no acute findings but did show moderate atrophy with chronic ischemic changes and some remote letter could infarcts in the cerebral white matter basal ganglia. Denies any chest pain or abdominal pain or shortness of breath around bowel movement or dysuria. No coughing. After several liters IV fluids in the ER he started to clear up with his mentation. 08/17 Per nurses he had hallucinations and elevated CIWA scores last night. Has tremors to both arms, per notes he has mild tremors each morning but it is more pronounced at this time. He does have underlying cerebral compromise per CT showing moderate atrophy chronic ischemic changes and few remote lacunar infarcts. seems to be doing better this morning. Patient states he feels 100% better. Rhythm sinus on the monitor. 08/18 The patient's provides further history that the patient has likely 10-12 ounces of hard alcohol a day, though she suspects it may be more. He continued to have elevated CIWA scores throughout the afternoon and evening last night. Required 11 mg of lorazepam on days yesterday, a similar amount overnight. This morning remains with delirium. Continue to have significant lorazepam needs for delirium and agitation yesterday. Yesterday evening, started on Precedex with good effect. Not required further lorazepam. This morning on low-dose Precedex with minimal agitation. Requiring oxygen mask at 2 L to maintain saturations. 08/19 Patient became hypotensive overnight while on Precedex. Responded to holding Precedex and giving fluids. Now back on Precedex secondary to increasing agitation and delirium with good blood pressures. On oxygen to maintain saturations. 08/20 Remains on Precedex, still with agitation. Remains afebrile, normal white count. - Constitutional Vitals: Vital Signs Temp Pulse Resp BP Pulse Ox 98 F 115 H 28 H 124/77 93 08/21/19 12:01 08/20/19 03:00 08/21/19 12:33 08/21/19 12:01 08/21/19 12:33 Period Temp Pulse Resp BP Sys/Masters Pulse Ox Last 24 Hr 97.9 F-98.5 F 15-31 95-176/59-109 88-100 Intake and Output 08/21/19 08/21/19 08/21/19 05:59 13:59 21:59 Intake Total 796 1044 Output Total 800 900 Balance -4 144 Intake & Output: Intake & Output 08/21/19 08/21/19 08/21/19 05:59 13:59 21:59 Intake Total 796 1044 Output Total 800 900 Balance -4 144 Intake: IV 796 1044 Sodium Chloride 0.9% 250 ml @ 177 20 mls/hr IV .[id number] [facility] Rx#: [id number] Precedex 400 Mcg/100 ml 99 44 Dextrose 400 Mcg In Premix 1 Bag @ 0.2 MCG/KG/HR 3.221 mls/ hr IV .Q24H [facility] Rx#:[id number] Dextrose 5%-Ns IV Solution 1, 1000 000 ml @ 75 mls/hr IV .[id number] [facility] Rx#:[id number] Potassium Chloride 40 Meq In 520 Dextrose 5% in Water 500 ml @ 130 mls/hr IV ONCE ONE Rx#: [id number] Output: Urine Catheter Amount 800 900 Other: Urine Appearance Clear Clear Urine Color Light Laura Light Laura Urine Odor Strong Exam: General: Awake, No acute Distress, appears little shaky in hands Eyes/N/T: EOMI, Head/Neck: neck supple, CV: mildly Tachycardia but regular, No murmurs, Pulm: Clear b/l, no wheezing/rhonchi/rales Abd: soft, nontender, +BS x4 Ext: no clubbing/cyanosis/edema Neuro: A&Ox4, no focal deficits, moves all extremities, Skin: warm/dry Medical - PN: Obj Da - Labs CBC & Chem 7: 08/21/19 04:15 08/21/19 04:15 Labs: Abnormal Lab Results 08/21/19 08/21/19 08/20/19 04:15 04:15 07:20 RBC 3.88 L Hgb 12.1 L Hct 35.7 L RDW 14.6 H Plt Count 111 L MPV 11.1 H Gran % 78.5 H Lymph % (Auto) 10.2 L Lymph # (Auto) 0.65 L Sodium 132 L Potassium 2.9 L* 2.7 L* Chloride Carbon Dioxide 21 L BUN 7 L Creatinine Glucose 136 H 141 H Calcium 7.4 L 7.4 L Phosphorus 2.1 L 1.5 L Magnesium 1.3 L Total Bilirubin 1.1 H Direct Bilirubin 0.4 H 0.5 H GGT 328 H 408 H AST 59 H Lactate Dehydrogenase Total Protein 5.8 L Albumin 2.8 L 3.1 L Albumin/Globulin Ratio 0.9 L Triglycerides 08/20/19 08/19/19 08/19/19 07:20 16:08 04:53 RBC 4.29 L Hgb 13.4 L Hct 39.4 L RDW 14.6 H Plt Count 108 L MPV 10.5 H Gran % 82.6 H Lymph % (Auto) 5.6 L Lymph # (Auto) 0.33 L Sodium Potassium 2.6 L* Chloride 95 L Carbon Dioxide BUN 4 L 6 L Creatinine 0.6 L Glucose 107 H 135 H Calcium 7.9 L 8.1 L Phosphorus 2.3 L Magnesium 1.5 L 1.4 L Total Bilirubin Direct Bilirubin GGT 455 H 452 H AST 63 H 65 H Lactate Dehydrogenase 417 H 278 H Total Protein Albumin Albumin/Globulin Ratio Triglycerides 151 H 08/19/19 04:53 RBC 4.15 L Hgb 13.1 L Hct 39.1 L RDW 14.9 H Plt Count 111 L MPV 10.8 H Gran % Lymph % (Auto) 14.0 L Lymph # (Auto) 0.81 L Sodium Potassium Chloride Carbon Dioxide BUN Creatinine Glucose Calcium Phosphorus Magnesium Total Bilirubin Direct Bilirubin GGT AST Lactate Dehydrogenase Total Protein Albumin Albumin/Globulin Ratio Triglycerides Meds: Medications Acetaminophen (Tylenol) 650 mg PO Q6HP PRN PRN Reason: PAIN/FEVER > 101 Last Admin: 08/18/19 10:04 Dose: 650 mg Documented by: Albuterol/Ipratropium (Duoneb) 3 ml NEB Q4HP PRN PRN Reason: Shortness Of Breath Amlodipine Besylate (Norvasc) 10 mg PO DAILY [facility] Last Admin: 08/21/19 09:59 Dose: Not Given Documented by: Brimonidine Tartrate (Alphagan P Ophth Drops) 1 gtt OU BID [facility] Last Admin: 08/21/19 10:01 Dose: 1 gtt Documented by: Carvedilol (Coreg) 3.125 mg PO [facility] Last Admin: 08/21/19 09:59 Dose: Not Given Documented by: Chlorhexidine Gluconate (Peridex) 15 ml SWABMOUTH BID [facility] Last Admin: 08/21/19 09:33 Dose: 15 ml Documented by: Clopidogrel Bisulfate (Plavix) 75 mg PO DAILY [facility] Last Admin: 08/21/19 09:59 Dose: Not Given Documented by: Enoxaparin Sodium (Lovenox) 40 mg SQ DAILY [facility] Last Admin: 08/21/19 09:33 Dose: 40 mg Documented by: Folic Acid (Folic Acid) 1 mg PO DAILY [facility] Last Admin: 08/21/19 09:59 Dose: Not Given Documented by: Dextrose/Sodium Chloride (Dextrose 5%-Ns Iv Solution) 1,000 mls @ 75 mls/hr IV .[id number] [facility] Last Admin: 08/21/19 09:25 Dose: 75 mls/hr Documented by: Dexmedetomidine HCl 400 mcg/ (Premix) 100 mls @ 3.221 mls/hr IV .Q24H [facility]; Protocol Last Titration: 08/21/19 12:44 Dose: 0.3 mcg/kg/hr, 4.831 mls/hr Documented by: Sodium Chloride (Sodium Chloride 0.9%) 250 mls @ 20 mls/hr IV .[id number] [facility] Last Admin: 08/21/19 02:16 Dose: 15 mls/hr Documented by: Potassium Chloride 40 meq/ (Dextrose) 520 mls @ 130 mls/hr IV UD PRN PRN Reason: Potassium < / = 3.5 Magnesium Sulfate (Magnesium Sulfate) 2 gm in 50 mls @ 50 mls/hr IV UD PRN PRN Reason: Magnesium </= 1.7 Thiamine HCl 100 mg/ Sodium (Chloride) 51 mls @ 50 mls/hr IV DAILY [facility] Stop: 08/23/19 10:02 Last Admin: 08/21/19 11:18 Dose: 50 mls/hr Documented by: Iron Carb/Multivit/[place]/Folic Acid (Multivitamin W/Minerals) 1 tab PO DAILY [facility] Last Admin: 08/21/19 09:59 Dose: Not Given Documented by: Labetalol HCl (Trandate) 0 mg IV Q2HP PRN PRN Reason: Hypertension Latanoprost (Xalatan Ophth Drops) 1 gtt OU HS [facility] Last Admin: 08/20/19 22:04 Dose: 1 gtt Documented by: Lorazepam (Ativan) 1 - 4 mg IV Q1HP PRN; Protocol PRN Reason: Alcohol Withdrawal Last Admin: 08/20/19 01:47 Dose: 2 mg Documented by: Losartan Potassium (Cozaar) 100 mg PO DAILY [facility] Last Admin: 08/21/19 09:59 Dose: Not Given Documented by: Ondansetron HCl (Zofran) 4 mg IV Q4HP PRN PRN Reason: Nausea And Vomiting Polyethylene Glycol (Miralax) 17 gm PO DAILYP PRN PRN Reason: Constipation Potassium Chloride (Kdur) 40 meq PO UD PRN PRN Reason: Potssium is 3-3.5 Last Admin: 08/17/19 09:31 Dose: 40 meq Documented by: Potassium Chloride (Kdur) 40 meq PO UD PRN PRN Reason: Potassium < 3 Senna (Senokot) 2 tab PO DAILYP PRN PRN Reason: Constipation Simvastatin (Zocor) 20 mg PO DAILY [facility] Last Admin: 08/21/19 09:59 Dose: Not Given Documented by: Sodium Chloride (Saline Flush) 10 ml IV Q8 [facility] Last Admin: 08/21/19 12:50 Dose: 10 ml Documented by: Medical - PN: A/P - Time Spent With Patient Total time spent is greater than 50% in coordination of care (as documented) at patient's floor/unit and/or counseling patient: - Narrative A/P Narrative: A: *Encephalopathy: improved in ED after IVF, worsened with onset of alcohol withdrawal *Etoh w/d with DT's: *Syncope: History sounds like a vasovagal episode -telemetry with sinus rhythm. Trop negative -With significantly elevated lactate, seizure initial differential, liver compromise from liver dz/etoh. *AG Med acidosis 2/2 Lactic acidosis: 2/2 volume depletions vs Infection (no source found) vs -resolved *volume depletion: resolved *N/V: ?gastroenteritis vs other, resolved *h/o diastolic CHF grade I: *h/o CVA as evidenced by CT brain showing moderate atrophy, chronic ischemic changes and old lacunar infarcts *h/o artery stenosis: On Plavix and statin *HTN: On Coreg Norvasc and losartan *mild transaminitis: similar to outpt labs from last Fall -2/2 Fatty liver and likely alcoholic hepatitis -hepatitis panel neg *Electrolyte imbalance: P: -cont IVF's while npo -Continue Precedex with CIWA for breakthrough withdrawal symptoms Wake-up trial today with weaning of Precedex to see underlying mental status (3/2) -IV thiamine -Continue to withhold antibiotics as no source/afebrile/low PCT/no leukocytosis -PRN electrolyte replacement -cont home BP meds -cont Plavix/statin -pt/ot -ppx: lovenox DNR
[2019-08-21] MEDS: LATANOPROST OPHTH DROPS 2.5ML BOTTLE OU SCH (22:39)
[2019-08-22] MEDS: 0.9 % SODIUM CHLORIDE 250 ML IV SCH ×2 (04:32→09:00)
[2019-08-22] MEDS: 0.9 % SODIUM CHLORIDE 10 ML SYRINGE IV SCH ×3 (05:54→21:00)
[2019-08-22 06:48] LABS: Basophils # (Auto) 0.03 K/mcL (0.00-0.30); Basophils % (Auto) 0.4 % (0.0-2.0); Eosinophils # (Auto) 0.04 K/mcL (0.00-0.70); Eosinophils % (Auto) 0.5 % (0.0-7.0); Granulocytes % (Auto) 78.4 % (38.0-78.0); Hematocrit 36.3 % (40.1-51.0); Hemoglobin 12.6 g/dL (13.7-17.5); Lymphocytes # (Auto) 0.59 K/mcL (1.50-4.80); Lymphocytes % (Auto) 7.4 % (15.5-49.0); Mean Cell Volume 89.2 fL (80.0-100.0); Mean Corpuscular HGB Conc 34.7 g/dL (31.0-36.0); Mean Platelet Volume 11.3 fL (7.4-10.4); Monocytes # (Auto) 1.05 K/mcL (0.10-0.90); Monocytes % (Auto) 13.3 % (1.0-12.0); Platelet Count 136 K/mcL (140-440); RBC 4.07 M/mcL (4.63-6.08); WBC 7.9 K/mcL (4.50-11.00)
--- NOTE | 2019-08-22 07:38 | Internal Med Progress Note ---
Medical - PN: Subj Patient information: Note initiated : 08/22/19 at 7:35 am Service Date, if different from initiated Date: [] Patient: Sebastián Valentino a 68 y/o M admitted on 08/16/19 for Fall. Chief Complaint: [] Interval history: 08/16 Mr. Valentino is a 68 year old M who presents the ED after having a syncopal epi sode. Per the history from the patient and his he seemed to be doing well yesterday. He had a sandwich from the sub-shop around 4 PM. Woke up in the morning and did not have breakfast which was unusual for him sound like he just did not have an appetite. And then later in the day around lunchtime he started having some nausea vomiting 3-4 episodes of clear fluid or and yellow fluid. He went down to go to the bathroom and was sitting on the toilet having a bowel movement was last thing he remembers. Next his heard the dog barking and went down found him on the ground by the toilet. Patient seemed confused after awakening and had a hard time remember events and also the year as asked by . He is very weak and his collection could not get him into a car so she called 911. He is never had an episode like this before. His that he is not anything to eat or drink since yesterday at 4 AM. In the ED was evaluated and he was sinus rhythm on the monitor. Labs were not very revealing except for he did have an elevated lactate at 10 which was repeated an hour later found to be 5. Chest x-ray was unrevealing. Urinalysis with some ketones hyaline cast protein CT of the brain showed no acute findings but did show moderate atrophy with chronic ischemic changes and some remote letter could infarcts in the cerebral white matter basal ganglia. Denies any chest pain or abdominal pain or shortness of breath around bowel movement or dysuria. No coughing. After several liters IV fluids in the ER he started to clear up with his mentation. 08/17 Per nurses he had hallucinations and elevated CIWA scores last night. Has tremors to both arms, per notes he has mild tremors each morning but it is more pronounced at this time. He does have underlying cerebral compromise per CT showing moderate atrophy chronic ischemic changes and few remote lacunar infarcts. seems to be doing better this morning. Patient states he feels 100% better. Rhythm sinus on the monitor. 08/18 The patient's provides further history that the patient has likely 10-12 ounces of hard alcohol a day, though she suspects it may be more. He continued to have elevated CIWA scores throughout the afternoon and evening last night. Required 11 mg of lorazepam on days yesterday, a similar amount overnight. This morning remains with delirium. Continue to have significant lorazepam needs for delirium and agitation yesterday. Yesterday evening, started on Precedex with good effect. Not required further lorazepam. This morning on low-dose Precedex with minimal agitation. Requiring oxygen mask at 2 L to maintain saturations. 08/19 Patient became hypotensive overnight while on Precedex. Responded to holding Precedex and giving fluids. Now back on Precedex secondary to increasing agitation and delirium with good blood pressures. On oxygen to maintain saturations. 08/20 Remains on Precedex, still with agitation. Remains afebrile, normal white count. 08/21 Precedex held this morning patient not alert awake yet. No issues overnight. Vitals stable. Is on oxygen mask but 2 L but sats 97%. Sodium 131.. Low potassium and magnesium this morning. Replace. Unable to gather review of system given current mental status - Constitutional Vitals: Vital Signs Temp Pulse Resp BP Pulse Ox 98.1 F 115 H 24 H 157/90 95 08/22/19 04:01 08/20/19 03:00 08/22/19 05:01 08/22/19 05:01 08/22/19 05:01 Period Temp Pulse Resp BP Sys/Masters Pulse Ox Last 24 Hr 98 F-99.2 F 19-32 106-164/64-108 90-99 Intake and Output 08/21/19 08/22/19 08/22/19 21:59 05:59 13:59 Intake Total 262 1240 Output Total 1350 1450 Balance -1088 -210 Weight 68.084 kg Intake & Output: Intake & Output 08/21/19 08/22/19 08/22/19 21:59 05:59 13:59 Intake Total 262 1240 Output Total 1350 1450 Balance -1088 -210 Weight 68.084 kg Intake: IV 262 1240 Sodium Chloride 0.9% 250 ml @ 206 189 20 mls/hr IV .[id number] [facility] Rx#: [id number] Precedex 400 Mcg/100 ml 56 Dextrose 400 Mcg In Premix 1 Bag @ 0.2 MCG/KG/HR 3.221 mls/ hr IV .Q24H [facility] Rx#:[id number] Dextrose 5%-Ns IV Solution 1, 1000 000 ml @ 75 mls/hr IV .[id number] [facility] Rx#:[id number] Vitamin B1 100 mg In Sodium 51 Chloride 0.9% 50 ml @ 50 mls/hr IV DAILY [facility] Rx#:[id number] Output: Urine Catheter Amount 1350 1450 Other: Urine Appearance Clear Clear Urine Color Bright Yellow Light Laura Urine Odor Strong Exam: General: somnolent, No acute Distress, Eyes/N/T: PERRL, Head/Neck: neck supple, CV: RRR, No murmurs, Pulm: mild rhonchi that clears with cough, no wheezing Abd: soft, nontender, +BS x4 Ext: no clubbing/cyanosis/edema Neuro: somnolent, tries to verbalize when I call his name. Does not follow commands. Skin: warm/dry Medical - PN: Obj Da - Labs CBC & Chem 7: 08/22/19 05:12 08/22/19 05:12 Labs: Abnormal Lab Results 08/22/19 08/21/19 08/21/19 05:12 04:15 04:15 RBC 4.07 L 3.88 L Hgb 12.6 L 12.1 L Hct 36.3 L 35.7 L RDW 14.6 H Plt Count 136 L 111 L MPV 11.3 H 11.1 H Gran % 78.4 H 78.5 H Lymph % (Auto) 7.4 L 10.2 L Mower % (Auto) 13.3 H Lymph # (Auto) 0.59 L 0.65 L Mower # (Auto) 1.05 H Sodium Potassium 2.9 L* Chloride Carbon Dioxide 21 L BUN Creatinine Glucose 136 H Calcium 7.4 L Phosphorus 2.1 L Magnesium 1.3 L Total Bilirubin Direct Bilirubin 0.4 H GGT 328 H AST Lactate Dehydrogenase Total Protein 5.8 L Albumin 2.8 L Albumin/Globulin Ratio 0.9 L 08/20/19 08/20/19 08/19/19 07:20 07:20 16:08 RBC 4.29 L Hgb 13.4 L Hct 39.4 L RDW 14.6 H Plt Count 108 L MPV 10.5 H Gran % 82.6 H Lymph % (Auto) 5.6 L Mower % (Auto) Lymph # (Auto) 0.33 L Mower # (Auto) Sodium 132 L Potassium 2.7 L* Chloride 95 L Carbon Dioxide BUN 7 L 4 L Creatinine 0.6 L Glucose 141 H 107 H Calcium 7.4 L 7.9 L Phosphorus 1.5 L 2.3 L Magnesium 1.5 L Total Bilirubin 1.1 H Direct Bilirubin 0.5 H GGT 408 H 455 H AST 59 H 63 H Lactate Dehydrogenase 417 H Total Protein Albumin 3.1 L Albumin/Globulin Ratio Meds: Medications Acetaminophen (Tylenol) 650 mg PO Q6HP PRN PRN Reason: PAIN/FEVER > 101 Last Admin: 08/18/19 10:04 Dose: 650 mg Documented by: Albuterol/Ipratropium (Duoneb) 3 ml NEB Q4HP PRN PRN Reason: Shortness Of Breath Amlodipine Besylate (Norvasc) 10 mg PO DAILY [facility] Last Admin: 08/21/19 09:59 Dose: Not Given Documented by: Brimonidine Tartrate (Alphagan P Ophth Drops) 1 gtt OU BID [facility] Last Admin: 08/21/19 22:38 Dose: 1 gtt Documented by: Carvedilol (Coreg) 3.125 mg PO [facility] Last Admin: 08/21/19 09:59 Dose: Not Given Documented by: Chlorhexidine Gluconate (Peridex) 15 ml [place] BID [facility] Last Admin: 08/21/19 22:39 Dose: 15 ml Documented by: Clopidogrel Bisulfate (Plavix) 75 mg PO DAILY [facility] Last Admin: 08/21/19 09:59 Dose: Not Given Documented by: Enoxaparin Sodium (Lovenox) 40 mg SQ DAILY [facility] Last Admin: 08/21/19 09:33 Dose: 40 mg Documented by: Folic Acid (Folic Acid) 1 mg PO DAILY [facility] Last Admin: 08/21/19 09:59 Dose: Not Given Documented by: Dextrose/Sodium Chloride (Dextrose 5%-Ns Iv Solution) 1,000 mls @ 75 mls/hr IV .[id number] [facility] Last Admin: 08/21/19 23:03 Dose: 75 mls/hr Documented by: Dexmedetomidine HCl 400 mcg/ (Premix) 100 mls @ 3.221 mls/hr IV .Q24H [facility]; Protocol Last Admin: 08/21/19 22:40 Dose: 0.6 mcg/kg/hr, 9.662 mls/hr Documented by: Sodium Chloride (Sodium Chloride 0.9%) 250 mls @ 20 mls/hr IV .[id number] [facility] Last Admin: 08/22/19 04:32 Dose: 15 mls/hr Documented by: Potassium Chloride 40 meq/ (Dextrose) 520 mls @ 130 mls/hr IV UD PRN PRN Reason: Potassium < / = 3.5 Magnesium Sulfate (Magnesium Sulfate) 2 gm in 50 mls @ 50 mls/hr IV UD PRN PRN Reason: Magnesium </= 1.7 Thiamine HCl 100 mg/ Sodium (Chloride) 51 mls @ 50 mls/hr IV DAILY [facility] Stop: 08/23/19 10:02 Last Infusion: 08/22/19 01:36 Dose: Infused Documented by: Iron Carb/Multivit/[place]/Folic Acid (Multivitamin W/Minerals) 1 tab PO DAILY [facility] Last Admin: 08/21/19 09:59 Dose: Not Given Documented by: Labetalol HCl (Trandate) 0 mg IV Q2HP PRN PRN Reason: Hypertension Latanoprost (Xalatan Ophth Drops) 1 gtt OU HS [facility] Last Admin: 08/21/19 22:39 Dose: 1 gtt Documented by: Lorazepam (Ativan) 1 - 4 mg IV Q1HP PRN; Protocol PRN Reason: Alcohol Withdrawal Last Admin: 08/20/19 01:47 Dose: 2 mg Documented by: Losartan Potassium (Cozaar) 100 mg PO DAILY [facility] Last Admin: 08/21/19 09:59 Dose: Not Given Documented by: Ondansetron HCl (Zofran) 4 mg IV Q4HP PRN PRN Reason: Nausea And Vomiting Polyethylene Glycol (Miralax) 17 gm PO DAILYP PRN PRN Reason: Constipation Potassium Chloride (Kdur) 40 meq PO UD PRN PRN Reason: Potssium is 3-3.5 Last Admin: 08/17/19 09:31 Dose: 40 meq Documented by: Potassium Chloride (Kdur) 40 meq PO UD PRN PRN Reason: Potassium < 3 Senna (Senokot) 2 tab PO DAILYP PRN PRN Reason: Constipation Simvastatin (Zocor) 20 mg PO DAILY [facility] Last Admin: 08/21/19 09:59 Dose: Not Given Documented by: Sodium Chloride (Saline Flush) 10 ml IV Q8 [facility] Last Admin: 08/22/19 05:54 Dose: 10 ml Documented by: Medical - PN: A/P - Time Spent With Patient Total time spent is greater than 50% in coordination of care (as documented) at patient's floor/unit and/or counseling patient: - Narrative A/P Narrative: A: *Encephalopathy superimposed on underlying cerebral dz: improved in ED after IVF, worsened with onset of alcohol withdrawal *Etoh w/d with DT's: *Syncope: History sounds like a vasovagal episode -telemetry with sinus rhythm. Trop negative -With significantly elevated lactate, seizure initial differential but doubt, suspect liver compromise from liver dz/etoh causing poor metabolism *AG Med acidosis 2/2 Lactic acidosis: 2/2 volume depletions vs Infection (no source found) vs -resolved *volume depletion: resolved *N/V: ?gastroenteritis vs other, resolved *h/o diastolic CHF grade I: *h/o CVA as evidenced by CT brain showing moderate atrophy, chronic ischemic changes and old lacunar infarcts *h/o artery stenosis: On Plavix and statin *HTN: On Coreg Norvasc and losartan *mild transaminitis: similar to outpt labs from last Fall -2/2 Fatty liver and likely alcoholic hepatitis. improved -hepatitis panel neg *Hyponatremia: *Hypomag/phos: P: -d5NS while npo -Continue Precedex with CIWA for breakthrough withdrawal symptoms Wake-up trial today with weaning of Precedex to see underlying mental status (3/2) -IV thiamine, folate -Continue to withhold antibiotics as no source/afebrile/low PCT/no leukocytosis -PRN electrolyte replacement -cont home BP meds -cont Plavix/statin -dobhoff and TF's today -pt/ot -ppx: lovenox DNR
[2019-08-22 07:55] LABS: ALT/SGPT 20 U/l (0-40); AST/SGOT 29 U/l (0-37); Albumin 2.8 gm/dL (3.2-5.2); Albumin/Globulin Ratio 0.8 (1.0-2.3); Alkaline Phosphatase 65 U/L (39-117); Bilirubin,Direct 0.4 mg/dL (0.0-0.3); Bilirubin,Total 1.1 mg/dL (0.0-1.0); Blood Urea Nitrogen 6 mg/dl (8-23); Carbon Dioxide 23 mmol/L (22-30); Chloride 94 mmol/L (96-108); Globulin 3.4 gm/dL (2.2-3.7); Glomerular Filtration Rate 103; Glucose 143 mg/dL (70-105); Lactate Dehydrogenase 237 U/L (94-250); Triglycerides 132 mg/dl (<150); Uric Acid 2.5 mg/dL (2.5-8.0)
[2019-08-22] MEDS: DEXMEDETOMIDINE 400 MCG in PREMIX 1 BAG IV SCH (08:07)
[2019-08-22] MEDS: MAGNESIUM SULFATE 2 GM/50 ML BAG IV PRN (08:43)
[2019-08-22] MEDS ORDERED: FOLIC ACID IV ONE (10:00)
[2019-08-22] MEDS ORDERED: SODIUM CHLORIDE 0.9% IV ONE (10:00)
[2019-08-22] MEDS: POTASSIUM CHLORIDE 40 MEQ in DEXTROSE 5% IN WATER 500 ML IV PRN (10:02)
[2019-08-22] MEDS ORDERED: FUROSEMIDE 20 MG/2 ML VIAL IV ONE (10:52)
--- NOTE | 2019-08-22 11:26 | XRay Report ---
HISTORY: Dobbhoff tube placement FINDINGS: There is a Dobbhoff feeding tube with the tip at the level of the gastric outlet. This is either at the level of the pylorus or in the base of the duodenal bulb. The bowel pattern is normal. There is dense consolidation in the left lower lobe. Heart is mildly enlarged. No free intra-abdominal air is present. IMPRESSION: Dobbhoff feeding tube at the level of the gastric outlet. Atelectasis or pneumonia in the left lower lobe. Nursing in the ICU was called with the results Interpreted and Authenticated by: Dc Mondragon 08/22/19
[2019-08-22] MEDS: PHOSPHORUS 250 MG TABLET PO SCH (11:48)
[2019-08-22] MEDS: CLOPIDOGREL 75 MG TABLET PO SCH (11:49)
[2019-08-22] MEDS: CARVEDILOL 3.125 MG TABLET PO SCH (11:49)
[2019-08-22] MEDS: FOLIC ACID 1 MG TABLET PO SCH (11:49)
[2019-08-22] MEDS: amLODIPine 10 MG TABLET PO SCH (11:49)
[2019-08-22] MEDS: LOSARTAN 50 MG TABLET PO SCH (11:50)
[2019-08-22] MEDS: SIMVASTATIN 20 MG TABLET PO SCH (11:50)
[2019-08-22] MEDS: MULTIVIT,THER IRON,CA,FA & MIN 1 TABLET PO SCH (11:50)
[2019-08-22] MEDS: ENOXAPARIN 40 MG/0.4 ML SYRINGE SQ SCH (11:51)
[2019-08-22] MEDS: BRIMONIDINE OPHTH DROPS 1 GTT BOTTLE 5ML OU SCH ×2 (12:52→23:04)
[2019-08-22] MEDS: CHLORHEXIDINE GLUCONATE 1 ML ORAL.SOL SWABMOUTH SCH ×2 (12:55→21:10)
[2019-08-22] MEDS: THIAMINE 100 MG in 0.9 % SODIUM CHLORIDE 50 ML IV SCH (12:55)
[2019-08-22] MEDS: DEXTROSE 5%-NS 1,000 ML IV SCH (13:00)
[2019-08-22 14:43] LABS: Band Neutrophils % 26 % (0-10); Dohle Bodies 1+ (NONE SEEN); Lymphocytes % 12 % (15-49); Monocytes % (Manual) 12 % (1-12); Platelet Estimate DECREASED (NORMAL); RBC Morphology NORMAL (NORMAL); Reactive Lymphocytes 3 % (0-2); Segmented Neutrophils % 47 % (38-78); Toxic Granulation FEW (NONE SEEN)
[2019-08-22] MEDS ORDERED: DEXTROSE 5%-NS 1,000 ML IV SCH (16:32)
--- NOTE | 2019-08-22 17:18 | XRay Report ---
HISTORY: Recent fall with pneumonia or aspiration. FINDINGS: there is a large densely consolidating infiltrate in the left lower lobe which extends up to the mid hilum. There is a moderate-sized alveolar infiltrate medially in the right lower lobe. There may be a small left-sided pleural effusion. The heart is mildly enlarged. The upper lobes are clear. There is a feeding tube passing through the esophagus into the stomach. There is no widening of the mediastinum. Comparison with the prior exam from 08/16/19 shows the infiltrates are new. The cardiomegaly remains stable. IMPRESSION: Severe bibasilar infiltrates, left worse than right. This may be pneumonia, pulmonary contusion/atelectasis or aspiration. Interpreted and Authenticated by: Dc Mondragon 08/22/19
[2019-08-22 17:27] LABS: Prealbumin 7.1 mg/dl (20-40)
[2019-08-22 17:34] LABS: ALT/SGPT 21 U/l (0-40); AST/SGOT 37 U/l (0-37); Albumin 2.8 gm/dL (3.2-5.2); Albumin/Globulin Ratio 0.7 (1.0-2.3); Alkaline Phosphatase 75 U/L (39-117); Bilirubin,Direct 0.4 mg/dL (0.0-0.3); Bilirubin,Total 1.2 mg/dL (0.0-1.0); Blood Urea Nitrogen 7 mg/dl (8-23); Calcium 9.2 mg/dl (8.6-10.4); Carbon Dioxide 20 mmol/L (22-30); Chloride 90 mmol/L (96-108); Globulin 4.1 gm/dL (2.2-3.7); Glomerular Filtration Rate 96; Glucose 152 mg/dL (70-105); Lactate Dehydrogenase 312 U/L (94-250); Triglycerides 145 mg/dl (<150); Uric Acid 2.4 mg/dL (2.5-8.0)
[2019-08-22] MEDS: PIPERACILLIN SODIUM/TAZOBACTAM 3.375 GM in DEXTROSE 5% IN WATER 50 ML IV SCH (18:01)
[2019-08-22] MEDS ORDERED: 0.9 % SODIUM CHLORIDE 1,000 ML IV SCH (19:00)
[2019-08-22] MEDS: LATANOPROST OPHTH DROPS 2.5ML BOTTLE OU SCH (23:04)
[2019-08-23] MEDS: PHOSPHORUS 250 MG TABLET PO SCH ×3 (01:11→20:02)
[2019-08-23] MEDS: PIPERACILLIN SODIUM/TAZOBACTAM 3.375 GM in DEXTROSE 5% IN WATER 50 ML IV SCH ×4 (01:42→17:30)
[2019-08-23] MEDS: 0.9 % SODIUM CHLORIDE 250 ML IV SCH ×2 (02:09→04:22)
[2019-08-23] MEDS: DEXMEDETOMIDINE 400 MCG in PREMIX 1 BAG IV SCH (04:22)
[2019-08-23] MEDS: 0.9 % SODIUM CHLORIDE 10 ML SYRINGE IV SCH ×3 (05:49→20:05)
[2019-08-23 06:58] LABS: Hematocrit 37.8 % (40.1-51.0); Hemoglobin 13.3 g/dL (13.7-17.5); Mean Cell Volume 87.7 fL (80.0-100.0); Mean Corpuscular HGB Conc 35.2 g/dL (31.0-36.0); Mean Platelet Volume 11.6 fL (7.4-10.4); Platelet Count 186 K/mcL (140-440); RBC 4.31 M/mcL (4.63-6.08); Red Cell Distribution Width 14.1 % (11.5-14.5); WBC 10.8 K/mcL (4.50-11.00)
[2019-08-23 07:54] LABS: ALT/SGPT 23 U/l (0-40); AST/SGOT 39 U/l (0-37); Albumin 2.7 gm/dL (3.2-5.2); Albumin/Globulin Ratio 0.7 (1.0-2.3); Alkaline Phosphatase 93 U/L (39-117); Bilirubin,Direct 0.5 mg/dL (0.0-0.3); Bilirubin,Total 1.2 mg/dL (0.0-1.0); Blood Urea Nitrogen 7 mg/dl (8-23); Carbon Dioxide 25 mmol/L (22-30); Chloride 89 mmol/L (96-108); Globulin 3.8 gm/dL (2.2-3.7); Glomerular Filtration Rate 96; Glucose 152 mg/dL (70-105); Lactate Dehydrogenase 257 U/L (94-250); Phosphorous 3.3 mg/dL (2.7-4.5); Triglycerides 137 mg/dl (<150); Uric Acid 1.6 mg/dL (2.5-8.0)
--- NOTE | 2019-08-23 07:56 | Internal Med Progress Note ---
Medical - PN: Subj Patient information: Note initiated : 08/23/19 at 7:52 am Service Date, if different from initiated Date: [] Patient: Sebastián Valentino a 68 y/o M admitted on 08/16/19 for Fall. Chief Complaint: [] Interval history: 08/16 Mr. Valentino is a 68 year old M who presents the ED after having a syncopal epi sode. Per the history from the patient and his he seemed to be doing well yesterday. He had a sandwich from the sub-shop around 4 PM. Woke up in the morning and did not have breakfast which was unusual for him sound like he just did not have an appetite. And then later in the day around lunchtime he started having some nausea vomiting 3-4 episodes of clear fluid or and yellow fluid. He went down to go to the bathroom and was sitting on the toilet having a bowel movement was last thing he remembers. Next his heard the dog barking and went down found him on the ground by the toilet. Patient seemed confused after awakening and had a hard time remember events and also the year as asked by . He is very weak and his collection could not get him into a car so she called 911. He is never had an episode like this before. His that he is not anything to eat or drink since yesterday at 4 AM. In the ED was evaluated and he was sinus rhythm on the monitor. Labs were not very revealing except for he did have an elevated lactate at 10 which was repeated an hour later found to be 5. Chest x-ray was unrevealing. Urinalysis with some ketones hyaline cast protein CT of the brain showed no acute findings but did show moderate atrophy with chronic ischemic changes and some remote letter could infarcts in the cerebral white matter basal ganglia. Denies any chest pain or abdominal pain or shortness of breath around bowel movement or dysuria. No coughing. After several liters IV fluids in the ER he started to clear up with his mentation. 08/17 Per nurses he had hallucinations and elevated CIWA scores last night. Has tremors to both arms, per notes he has mild tremors each morning but it is more pronounced at this time. He does have underlying cerebral compromise per CT showing moderate atrophy chronic ischemic changes and few remote lacunar infarcts. seems to be doing better this morning. Patient states he feels 100% better. Rhythm sinus on the monitor. 08/18 The patient's provides further history that the patient has likely 10-12 ounces of hard alcohol a day, though she suspects it may be more. He continued to have elevated CIWA scores throughout the afternoon and evening last night. Required 11 mg of lorazepam on days yesterday, a similar amount overnight. This morning remains with delirium. Continue to have significant lorazepam needs for delirium and agitation yesterday. Yesterday evening, started on Precedex with good effect. Not required further lorazepam. This morning on low-dose Precedex with minimal agitation. Requiring oxygen mask at 2 L to maintain saturations. 08/19 Patient became hypotensive overnight while on Precedex. Responded to holding Precedex and giving fluids. Now back on Precedex secondary to increasing agitation and delirium with good blood pressures. On oxygen to maintain saturations. 08/20 Remains on Precedex, still with agitation. Remains afebrile, normal white count. 08/21 Precedex held this morning patient not alert awake yet. No issues overnight. Vitals stable. Is on oxygen mask but 2 L but sats 97%. Sodium 131.. Low potassium and magnesium this morning. Replace. 08/22 Likely aspiration during the withdrawal period. Precedex stopped this morning, restarted last night. Patient waking up refusing to answer questions when answered and asked for his Laura. Antibiotic started for pneumonia. Procalcitonin/crp improved. Bandemia improved. Replete electrolytes. Unable to gather review of system given current mental status - Constitutional Vitals: Vital Signs Temp Pulse Resp BP Pulse Ox 98.9 F 115 H 29 H 162/91 96 08/23/19 04:01 08/20/19 03:00 08/23/19 04:33 08/23/19 04:01 08/23/19 04:33 Period Temp Pulse Resp BP Sys/Masters Pulse Ox Last 24 Hr 98.2 F-99.5 F 20-37 114-162/79-100 85-98 Intake and Output 08/22/19 08/23/19 08/23/19 21:59 05:59 13:59 Intake Total 1175 567 50 Output Total 400 650 Balance 775 -83 50 Weight 66.315 kg Intake & Output: Intake & Output 08/22/19 08/23/1908/22/20 21:59 05:59 13:59 Intake Total 1175 567 50 Output Total 400 650 Balance 775 -83 50 Weight 66.315 kg Intake: IV 995 347 50 Sodium Chloride 0.9% 250 ml @ 0 227 20 mls/hr IV .[id number] [facility] Rx#: [id number] Precedex 400 Mcg/100 ml 0 70 Dextrose 400 Mcg In Premix 1 Bag @ 0.2 MCG/KG/HR 3.221 mls/ hr IV .Q24H [facility] Rx#:[id number] Dextrose 5%-Ns IV Solution 1, 374 000 ml @ 75 mls/hr IV .[id number] [facility] Rx#:[id number] Zosyn 3.375 gm In Dextrose 5% 50 50 50 in Water 50 ml @ 100 mls/hr IV Q6H [facility] Rx#:[id number] Potassium Chloride 40 Meq In 520 Dextrose 5% in Water 500 ml @ 130 mls/hr IV UD PRN Rx#: [id number] Vitamin B1 100 mg In Sodium 51 Chloride 0.9% 50 ml @ 50 mls/hr IV DAILY [facility] Rx#:[id number] Tube Feeding 120 160 GI Tube Flush 60 60 Output: Urine Catheter Amount 400 650 Other: Urine Appearance Clear Uretheral ([place]) Clear Clear Urine Color Dark Yellow Bright Yellow Uretheral ([place]) Dark Yellow Dark Yellow Exam: General: eyes closed but awake, No acute Distress, Eyes/N/T: PERRL, Head/Neck: neck supple, CV: RRR, No murmurs, Pulm: mild rhonchi/rales at bases worse on left, no wheezing Abd: soft, nontender, +BS x4 Ext: no clubbing/cyanosis/edema Neuro: calls out for wifes, refuses to answer questions and will ask be to answer my own questions. Does not follow commands. Skin: warm/dry Medical - PN: Obj Da - Labs CBC & Chem 7: 08/23/19 05:10 08/23/19 05:10 Labs: Abnormal Lab Results 08/23/19 08/23/19 08/22/19 05:10 05:10 14:02 RBC 4.31 L Hgb 13.3 L Hct 37.8 L RDW Plt Count MPV 11.6 H Gran % Lymph % (Auto) [place] % (Auto) Lymph # (Auto) [place] # (Auto) Band Neutrophils % Lymphocytes % WBC Morphology Reactive Lymphocytes Toxic Granulation Dohle Bodies Platelet Estimate Sodium Potassium Chloride Carbon Dioxide Anion Gap BUN Creatinine Glucose Uric Acid Calcium Phosphorus Magnesium Total Bilirubin Direct Bilirubin GGT AST Lactate Dehydrogenase C-Reactive Protein 25.2 H 31.1 H Total Protein Albumin Globulin Albumin/Globulin Ratio Prealbumin 08/22/19 08/22/19 08/22/19 14:02 05:12 05:12 RBC 4.07 L Hgb 12.6 L Hct 36.3 L RDW Plt Count 136 L MPV 11.3 H Gran % 78.4 H Lymph % (Auto) 7.4 L [place] % (Auto) 13.3 H Lymph # (Auto) 0.59 L [place] # (Auto) 1.05 H Band Neutrophils % 26 H Lymphocytes % 12 L WBC Morphology Abnorm A Reactive Lymphocytes 3 H Toxic Granulation Few A Dohle Bodies 1+ A Platelet Estimate Decreased A Sodium 129 L Potassium Chloride 90 L Carbon Dioxide 20 L Anion Gap 19.0 H BUN 7 L Creatinine Glucose 152 H Uric Acid 2.4 L Calcium Phosphorus 2.0 L Magnesium Total Bilirubin 1.2 H Direct Bilirubin 0.4 H GGT 323 H AST Lactate Dehydrogenase 312 H C-Reactive Protein Total Protein Albumin 2.8 L Globulin 4.1 H Albumin/Globulin Ratio 0.7 L Prealbumin 7.1 L 08/22/19 08/21/19 08/21/19 05:12 04:15 04:15 RBC 3.88 L Hgb 12.1 L Hct 35.7 L RDW 14.6 H Plt Count 111 L MPV 11.1 H Gran % 78.5 H Lymph % (Auto) 10.2 L [place] % (Auto) Lymph # (Auto) 0.65 L [place] # (Auto) Band Neutrophils % Lymphocytes % WBC Morphology Reactive Lymphocytes Toxic Granulation Dohle Bodies Platelet Estimate Sodium 131 L Potassium 2.7 L* 2.9 L* Chloride 94 L Carbon Dioxide 21 L Anion Gap BUN 6 L Creatinine 0.6 L Glucose 143 H 136 H Uric Acid Calcium 8.0 L 7.4 L Phosphorus 2.0 L 2.1 L Magnesium 1.3 L 1.3 L Total Bilirubin 1.1 H Direct Bilirubin 0.4 H 0.4 H GGT 301 H 328 H AST Lactate Dehydrogenase C-Reactive Protein Total Protein 5.8 L Albumin 2.8 L 2.8 L Globulin Albumin/Globulin Ratio 0.8 L 0.9 L Prealbumin 08/20/19 08/20/19 07:20 07:20 RBC 4.29 L Hgb 13.4 L Hct 39.4 L RDW 14.6 H Plt Count 108 L MPV 10.5 H Gran % 82.6 H Lymph % (Auto) 5.6 L [place] % (Auto) Lymph # (Auto) 0.33 L [place] # (Auto) Band Neutrophils % Lymphocytes % WBC Morphology Reactive Lymphocytes Toxic Granulation Dohle Bodies Platelet Estimate Sodium 132 L Potassium 2.7 L* Chloride Carbon Dioxide Anion Gap BUN 7 L Creatinine Glucose 141 H Uric Acid Calcium 7.4 L Phosphorus 1.5 L Magnesium Total Bilirubin 1.1 H Direct Bilirubin 0.5 H GGT 408 H AST 59 H Lactate Dehydrogenase C-Reactive Protein Total Protein Albumin 3.1 L Globulin Albumin/Globulin Ratio Prealbumin Meds: Medications Acetaminophen (Tylenol) 650 mg PO Q6HP PRN PRN Reason: PAIN/FEVER > 101 Last Admin: 08/18/19 10:04 Dose: 650 mg Documented by: Albuterol/Ipratropium (Duoneb) 3 ml NEB Q4HP PRN PRN Reason: Shortness Of Breath Amlodipine Besylate (Norvasc) 10 mg PO DAILY [facility] Last Admin: 08/22/19 11:49 Dose: 10 mg Documented by: Brimonidine Tartrate (Alphagan P Ophth Drops) 1 gtt OU BID [facility] Last Admin: 08/22/19 23:04 Dose: 1 gtt Documented by: Carvedilol (Coreg) 3.125 mg PO [facility] Last Admin: 08/22/19 11:49 Dose: 3.125 mg Documented by: Chlorhexidine Gluconate (Peridex) 15 ml SWABMOUTH BID [facility] Last Admin: 08/22/19 21:10 Dose: 15 ml Documented by: Clopidogrel Bisulfate (Plavix) 75 mg PO DAILY [facility] Last Admin: 08/22/19 11:49 Dose: 75 mg Documented by: Enoxaparin Sodium (Lovenox) 40 mg SQ DAILY [facility] Last Admin: 08/22/19 11:51 Dose: 40 mg Documented by: Folic Acid (Folic Acid) 1 mg PO DAILY [facility] Last Admin: 08/22/19 11:49 Dose: 1 mg Documented by: Dexmedetomidine HCl 400 mcg/ (Premix) 100 mls @ 3.221 mls/hr IV .Q24H [facility]; Protocol Last Admin: 08/23/19 04:22 Dose: 0.4 mcg/kg/hr, 6.441 mls/hr Documented by: Sodium Chloride (Sodium Chloride 0.9%) 250 mls @ 20 mls/hr IV .[id number] [facility] Last Admin: 08/23/19 04:22 Dose: 20 mls/hr Documented by: Potassium Chloride 40 meq/ (Dextrose) 520 mls @ 130 mls/hr IV UD PRN PRN Reason: Potassium < / = 3.5 Last Infusion: 08/22/19 14:10 Dose: Infused Documented by: Magnesium Sulfate (Magnesium Sulfate) 2 gm in 50 mls @ 50 mls/hr IV UD PRN PRN Reason: Magnesium </= 1.7 Last Infusion: 08/22/19 10:50 Dose: Infused Documented by: Thiamine HCl 100 mg/ Sodium (Chloride) 51 mls @ 50 mls/hr IV DAILY [facility] Stop: 08/23/19 10:02 Last Infusion: 08/22/19 14:00 Dose: Infused Documented by: Piperacillin Sod/Tazobactam (Sod 3.375 gm/ Dextrose) 50 mls @ 100 mls/hr IV Q6H [facility]; Protocol Last Infusion: 08/23/19 06:30 Dose: Infused Documented by: Sodium Chloride (Sodium Chloride 0.9%) 1,000 mls @ 60 mls/hr IV .[id number] [facility] Last Admin: 08/23/19 01:41 Dose: 60 mls/hr Documented by: Iron Carb/Multivit/Maintenance Man/Folic Acid (Multivitamin W/Minerals) 1 tab PO DAILY [facility] Last Admin: 08/22/19 11:50 Dose: 1 tab Documented by: Labetalol HCl (Trandate) 0 mg IV Q2HP PRN PRN Reason: Hypertension Latanoprost (Xalatan Ophth Drops) 1 gtt OU HS [facility] Last Admin: 08/22/19 23:04 Dose: 1 gtt Documented by: Lorazepam (Ativan) 1 - 4 mg IV Q1HP PRN; Protocol PRN Reason: Alcohol Withdrawal Last Admin: 08/20/19 01:47 Dose: 2 mg Documented by: Losartan Potassium (Cozaar) 100 mg PO DAILY [facility] Last Admin: 08/22/19 11:50 Dose: 100 mg Documented by: Ondansetron HCl (Zofran) 4 mg IV Q4HP PRN PRN Reason: Nausea And Vomiting Polyethylene Glycol (Miralax) 17 gm PO DAILYP PRN PRN Reason: Constipation Potassium Chloride (Kdur) 40 meq PO UD PRN PRN Reason: Potssium is 3-3.5 Last Admin: 08/17/19 09:31 Dose: 40 meq Documented by: Potassium Chloride (Kdur) 40 meq PO UD PRN PRN Reason: Potassium < 3 Senna (Senokot) 2 tab PO DAILYP PRN PRN Reason: Constipation Simvastatin (Zocor) 20 mg PO DAILY [facility] Last Admin: 08/22/19 11:50 Dose: 20 mg Documented by: Sodium Chloride (Saline Flush) 10 ml IV Q8 [facility] Last Admin: 08/23/19 05:49 Dose: Not Given Documented by: Sodium Chloride (Sodium Chloride) 1 gm PO ONCE ONE Stop: 08/23/19 19:01 Sodium Phosphate (Pot Phosphate Neutral) 250 mg PO BID [facility] Stop: 08/23/19 21:01 Last Admin: 08/23/19 01:11 Dose: Not Given Documented by: Medical - PN: A/P - Time Spent With Patient Total time spent is greater than 50% in coordination of care (as documented) at patient's floor/unit and/or counseling patient: - Narrative A/P Narrative: A: *Encephalopathy superimposed on underlying cerebral dz: improved in ED after IVF, worsened with onset of alcohol withdrawal -CT brain with mod atrophy/chorinc ischemic changes and old infarcts *Etoh abuse w/d with DT's: *PNA/aspiration likely from above: -bandemia/elevated pct and crp improving *Syncope: History sounds like a vasovagal episode -telemetry with sinus rhythm. Trop negative -With significantly elevated lactate, seizure initial differential but doubt, suspect liver compromise from liver dz/etoh causing poor metabolism *AG Med acidosis 2/2 Lactic acidosis: 2/2 volume depletions vs Infection (no source found) vs -resolved *volume depletion: resolved *N/V: ?gastroenteritis vs other, resolved *h/o diastolic CHF grade I: *h/o CVA as evidenced by CT brain showing moderate atrophy, chronic ischemic changes and old lacunar infarcts *h/o artery stenosis: On Plavix and statin *HTN: On Coreg Norvasc and losartan *mild transaminitis: similar to outpt labs from last Fall -2/2 Fatty liver and likely alcoholic hepatitis. improved -hepatitis panel neg *Hyponatremia: *Hypomag/phos: P: -TF's -d/c sedation -IV thiamine, folate -Zosyn -repeat CT brain if no improvement off sedative meds -PRN electrolyte replacement -cont home BP meds -cont Plavix/statin -pt/ot -ppx: lovenox DNR
[2019-08-23] MEDS ORDERED: MAGNESIUM SULFATE 2 GM/50 ML BAG IV ONE (07:57)
[2019-08-23] MEDS ORDERED: SODIUM CHLORIDE 1 GM TABLET PO ONE ×2 (07:58→19:00)
[2019-08-23] MEDS: POTASSIUM CHLORIDE 40 MEQ in DEXTROSE 5% IN WATER 500 ML IV PRN (08:55)
[2019-08-23 09:02] LABS: Band Neutrophils % 17 % (0-10); Dohle Bodies FEW (NONE SEEN); Lymphocytes % 5 % (15-49); Monocytes % (Manual) 9 % (1-12); Platelet Estimate NORMAL (NORMAL); RBC Morphology NORMAL (NORMAL); Segmented Neutrophils % 69 % (38-78); Toxic Granulation FEW (NONE SEEN)
[2019-08-23] MEDS: BRIMONIDINE OPHTH DROPS 1 GTT BOTTLE 5ML OU SCH ×2 (09:26→20:02)
[2019-08-23] MEDS: CARVEDILOL 3.125 MG TABLET PO SCH (09:26)
[2019-08-23] MEDS: MULTIVIT,THER IRON,CA,FA & MIN 1 TABLET PO SCH (09:27)
[2019-08-23] MEDS: SIMVASTATIN 20 MG TABLET PO SCH (09:27)
[2019-08-23] MEDS: LOSARTAN 50 MG TABLET PO SCH (09:27)
[2019-08-23] MEDS: ENOXAPARIN 40 MG/0.4 ML SYRINGE SQ SCH (09:27)
[2019-08-23] MEDS: CLOPIDOGREL 75 MG TABLET PO SCH (09:27)
[2019-08-23] MEDS: FOLIC ACID 1 MG TABLET PO SCH (09:27)
[2019-08-23] MEDS: amLODIPine 10 MG TABLET PO SCH (09:27)
[2019-08-23] MEDS: CHLORHEXIDINE GLUCONATE 1 ML ORAL.SOL SWABMOUTH SCH ×2 (09:28→20:05)
[2019-08-23] MEDS: THIAMINE 100 MG in 0.9 % SODIUM CHLORIDE 50 ML IV SCH (09:28)
[2019-08-23] MEDS ORDERED: ALBUMIN HUMAN 12.5 GM/50 ML BAG IV ONE (10:11)
[2019-08-23] MEDS ORDERED: FUROSEMIDE 20 MG/2 ML VIAL IV ONE (10:11)
[2019-08-23] MEDS ORDERED: POTASSIUM CHLORIDE 20 MEQ TABLET PO ONE (16:00)
--- NOTE | 2019-08-23 17:41 | XRay Report ---
HISTORY: Evaluate Dobbhoff feeding tube FINDINGS: There is a Dobbhoff feeding tube in the antrum of the stomach. The distal end of the catheter has folded upon itself and the tip is pointing towards the gastroesophageal junction. The catheter has been repositioned since prior exam done on 08/22/19. That time the tip appeared to be at the level of the gastric outlet. The bowel pattern is normal. No free intra-abdominal air is present. There is consolidating pulmonary infiltrate in the left lower lobe and milder involvement in the right lower lobe. IMPRESSION: Dobbhoff feeding tube looped upon itself in the antrum of the stomach Interpreted and Authenticated by: Dc Mondragon 08/23/19
--- NOTE | 2019-08-23 18:16 | XRay Report ---
HISTORY: Reposition Dobbhoff feeding tube FINDINGS: the tip of the feeding tube is now positioned at the level of the pylorus pointing towards the duodenal bulb. This may spontaneously pass into the duodenum. The bowel pattern is normal. There has been no other change compared with the prior study. Current study was done at 1754. IMPRESSION: Improved placement of the feeding tube Interpreted and Authenticated by: Dc Mondragon 08/23/19
[2019-08-23] MEDS: LATANOPROST OPHTH DROPS 2.5ML BOTTLE OU SCH (20:06)
[2019-08-23] MEDS: LORazepam 2 MG/ML VIAL IV PRN ×2 (21:31→22:07)
[2019-08-24] MEDS: PIPERACILLIN SODIUM/TAZOBACTAM 3.375 GM in DEXTROSE 5% IN WATER 50 ML IV SCH ×4 (00:06→18:25)
[2019-08-24] MEDS: LORazepam 2 MG/ML VIAL IV PRN (04:31)
[2019-08-24] MEDS: 0.9 % SODIUM CHLORIDE 10 ML SYRINGE IV SCH ×6 (05:46→20:01)
[2019-08-24 06:50] LABS: ALT/SGPT 31 U/l (0-40); AST/SGOT 47 U/l (0-37); Albumin 2.9 gm/dL (3.2-5.2); Albumin/Globulin Ratio 0.8 (1.0-2.3); Alkaline Phosphatase 112 U/L (39-117); Bilirubin,Direct 0.4 mg/dL (0.0-0.3); Bilirubin,Total 1.2 mg/dL (0.0-1.0); Calcium 9.2 mg/dl (8.6-10.4); Carbon Dioxide 30 mmol/L (22-30); Globulin 3.6 gm/dL (2.2-3.7); Glomerular Filtration Rate 87; Glucose 119 mg/dL (70-105); Hemoglobin 12.4 g/dL (13.7-17.5); Lactate Dehydrogenase 250 U/L (94-250); Mean Cell Volume 88.9 fL (80.0-100.0); Mean Corpuscular HGB Conc 34.4 g/dL (31.0-36.0); Mean Platelet Volume 11.2 fL (7.4-10.4); Phosphorous 3.5 mg/dL (2.7-4.5); Platelet Count 219 K/mcL (140-440); RBC 4.05 M/mcL (4.63-6.08); Red Cell Distribution Width 14.4 % (11.5-14.5); Triglycerides 134 mg/dl (<150); Uric Acid 1.8 mg/dL (2.5-8.0); WBC 8.7 K/mcL (4.50-11.00)
[2019-08-24] MEDS ORDERED: MAGNESIUM SULFATE 2 GM/50 ML BAG IV ONE (07:27)
--- NOTE | 2019-08-24 07:28 | Internal Med Progress Note ---
Medical - PN: Subj Patient information: Note initiated : 08/24/19 at 7:25 am Service Date, if different from initiated Date: [] Patient: Sebastián Valentino a 68 y/o M admitted on 08/16/19 for Fall. Chief Complaint: [] Interval history: 08/16 Mr. Valentino is a 68 year old M who presents the ED after having a syncopal epi sode. Per the history from the patient and his he seemed to be doing well yesterday. He had a sandwich from the sub-shop around 4 PM. Woke up in the morning and did not have breakfast which was unusual for him sound like he just did not have an appetite. And then later in the day around lunchtime he started having some nausea vomiting 3-4 episodes of clear fluid or and yellow fluid. He went down to go to the bathroom and was sitting on the toilet having a bowel movement was last thing he remembers. Next his heard the dog barking and went down found him on the ground by the toilet. Patient seemed confused after awakening and had a hard time remember events and also the year as asked by . He is very weak and his collection could not get him into a car so she called 911. He is never had an episode like this before. His that he is not anything to eat or drink since yesterday at 4 AM. In the ED was evaluated and he was sinus rhythm on the monitor. Labs were not very revealing except for he did have an elevated lactate at 10 which was repeated an hour later found to be 5. Chest x-ray was unrevealing. Urinalysis with some ketones hyaline cast protein CT of the brain showed no acute findings but did show moderate atrophy with chronic ischemic changes and some remote letter could infarcts in the cerebral white matter basal ganglia. Denies any chest pain or abdominal pain or shortness of breath around bowel movement or dysuria. No coughing. After several liters IV fluids in the ER he started to clear up with his mentation. 08/17 Per nurses he had hallucinations and elevated CIWA scores last night. Has tremors to both arms, per notes he has mild tremors each morning but it is more pronounced at this time. He does have underlying cerebral compromise per CT showing moderate atrophy chronic ischemic changes and few remote lacunar infarcts. seems to be doing better this morning. Patient states he feels 100% better. Rhythm sinus on the monitor. 08/18 The patient's provides further history that the patient has likely 10-12 ounces of hard alcohol a day, though she suspects it may be more. He continued to have elevated CIWA scores throughout the afternoon and evening last night. Required 11 mg of lorazepam on days yesterday, a similar amount overnight. This morning remains with delirium. Continue to have significant lorazepam needs for delirium and agitation yesterday. Yesterday evening, started on Precedex with good effect. Not required further lorazepam. This morning on low-dose Precedex with minimal agitation. Requiring oxygen mask at 2 L to maintain saturations. 08/19 Patient became hypotensive overnight while on Precedex. Responded to holding Precedex and giving fluids. Now back on Precedex secondary to increasing agitation and delirium with good blood pressures. On oxygen to maintain saturations. 08/20 Remains on Precedex, still with agitation. Remains afebrile, normal white count. 08/21 Precedex held this morning patient not alert awake yet. No issues overnight. Vitals stable. Is on oxygen mask but 2 L but sats 97%. Sodium 131.. Low potassium and magnesium this morning. Replace. 08/22 Likely aspiration during the withdrawal period. Precedex stopped this morning, restarted last night. Patient waking up refusing to answer questions when answered and asked for his Laura. Antibiotic started for pneumonia. Procalcitonin/crp improved. Bandemia improved. Replete electrolytes. 08/23 Patient was given 3 mg of Ativan last night for agitation. Somnolent this morning. Holding all sedation and avoid if at all possible. If something absolutely has to be used will use Haldol or zyprexa instead of Ativan. Unable to gather review of system given current mental status - Constitutional Vitals: Vital Signs Temp Pulse Resp BP Pulse Ox 98.4 F 115 H 23 H 117/97 95 08/24/19 04:01 08/20/19 03:00 08/24/19 04:01 08/24/19 04:01 08/24/19 04:01 Period Temp Pulse Resp BP Sys/Masters Pulse Ox Last 24 Hr 97.9 F-100 F 20-40 88-147/56-101 91-95 Intake and Output 08/23/19 08/24/1908/23/20 21:59 05:59 13:59 Intake Total 748 536 50 Output Total 1650 575 Balance -902 -39 50 Weight 67.585 kg Intake & Output: Intake & Output 08/23/19 08/24/19 08/24/19 21:59 05:59 13:59 Intake Total 748 536 50 Output Total 1650 575 Balance -902 -39 50 Weight 67.585 kg Intake: IV 151 50 50 Zosyn 3.375 gm In Dextrose 5% 50 50 50 in Water 50 ml @ 100 mls/hr IV Q6H [facility] Rx#:[id number] Vitamin B1 100 mg In Sodium 51 Chloride 0.9% 50 ml @ 50 mls/hr IV DAILY [facility] Rx#:[id number] Tube Feeding 417 426 GI Tube Flush 180 60 Output: Urine Catheter Amount 1650 575 Other: Urine Appearance Clear Uretheral ([place]) Clear Clear Urine Color Light Laura Uretheral ([place]) Bright Yellow Light Laura Urine Odor Normal Exam: General: eyes closed but awakens still drowsy, No acute Distress, Eyes/N/T: PERRL, Head/Neck: neck supple, CV: RRR, No murmurs, Pulm: mild rhonchi b/l, no wheezing Abd: soft, nontender, +BS x4 Ext: no clubbing/cyanosis/edema Neuro: calls out for wifes, mumbles when asked questions, some verbalizations clear. Skin: warm/dry Medical - PN: Obj Da - Labs CBC & Chem 7: 08/24/19 05:15 08/24/19 05:15 Labs: Abnormal Lab Results 08/24/19 08/24/19 08/23/19 05:15 05:15 05:10 RBC 4.05 L Hgb 12.4 L Hct 36.0 L Plt Count MPV 11.2 H Gran % Lymph % (Auto) [place] % (Auto) Lymph # (Auto) [place] # (Auto) Band Neutrophils % Lymphocytes % WBC Morphology Reactive Lymphocytes Toxic Granulation Dohle Bodies Platelet Estimate Sodium Potassium Chloride Carbon Dioxide Anion Gap BUN Creatinine Glucose 119 H Uric Acid 1.8 L Calcium Phosphorus Magnesium 1.5 L Total Bilirubin 1.2 H Direct Bilirubin 0.4 H GGT 307 H AST 47 H Lactate Dehydrogenase C-Reactive Protein 25.2 H Albumin 2.9 L Globulin Albumin/Globulin Ratio 0.8 L Prealbumin 08/23/19 08/23/19 08/22/19 05:10 05:10 14:02 RBC 4.31 L Hgb 13.3 L Hct 37.8 L Plt Count MPV 11.6 H Gran % Lymph % (Auto) [place] % (Auto) Lymph # (Auto) [place] # (Auto) Band Neutrophils % 17 H Lymphocytes % 5 L WBC Morphology Abnorm A Reactive Lymphocytes Toxic Granulation Few A Dohle Bodies Few A Platelet Estimate Sodium 128 L Potassium 2.9 L* Chloride 89 L Carbon Dioxide Anion Gap BUN 7 L Creatinine Glucose 152 H Uric Acid 1.6 L Calcium Phosphorus Magnesium 1.3 L Total Bilirubin 1.2 H Direct Bilirubin 0.5 H GGT 294 H AST 39 H Lactate Dehydrogenase 257 H C-Reactive Protein 31.1 H Albumin 2.7 L Globulin 3.8 H Albumin/Globulin Ratio 0.7 L Prealbumin 08/22/19 08/22/19 08/22/19 14:02 05:12 05:12 RBC 4.07 L Hgb 12.6 L Hct 36.3 L Plt Count 136 L MPV 11.3 H Gran % 78.4 H Lymph % (Auto) 7.4 L [place] % (Auto) 13.3 H Lymph # (Auto) 0.59 L [place] # (Auto) 1.05 H Band Neutrophils % 26 H Lymphocytes % 12 L WBC Morphology Abnorm A Reactive Lymphocytes 3 H Toxic Granulation Few A Dohle Bodies 1+ A Platelet Estimate Decreased A Sodium 129 L Potassium Chloride 90 L Carbon Dioxide 20 L Anion Gap 19.0 H BUN 7 L Creatinine Glucose 152 H Uric Acid 2.4 L Calcium Phosphorus 2.0 L Magnesium Total Bilirubin 1.2 H Direct Bilirubin 0.4 H GGT 323 H AST Lactate Dehydrogenase 312 H C-Reactive Protein Albumin 2.8 L Globulin 4.1 H Albumin/Globulin Ratio 0.7 L Prealbumin 7.1 L 08/22/19 05:12 RBC Hgb Hct Plt Count MPV Gran % Lymph % (Auto) [place] % (Auto) Lymph # (Auto) [place] # (Auto) Band Neutrophils % Lymphocytes % WBC Morphology Reactive Lymphocytes Toxic Granulation Dohle Bodies Platelet Estimate Sodium 131 L Potassium 2.7 L* Chloride 94 L Carbon Dioxide Anion Gap BUN 6 L Creatinine 0.6 L Glucose 143 H Uric Acid Calcium 8.0 L Phosphorus 2.0 L Magnesium 1.3 L Total Bilirubin 1.1 H Direct Bilirubin 0.4 H GGT 301 H AST Lactate Dehydrogenase C-Reactive Protein Albumin 2.8 L Globulin Albumin/Globulin Ratio 0.8 L Prealbumin Meds: Medications Acetaminophen (Tylenol) 650 mg PO Q6HP PRN PRN Reason: PAIN/FEVER > 101 Last Admin: 08/18/19 10:04 Dose: 650 mg Documented by: Albuterol/Ipratropium (Duoneb) 3 ml NEB Q4HP PRN PRN Reason: Shortness Of Breath Amlodipine Besylate (Norvasc) 10 mg PO DAILY [facility] Last Admin: 08/23/19 09:27 Dose: 10 mg Documented by: Brimonidine Tartrate (Alphagan P Ophth Drops) 1 gtt OU BID [facility] Last Admin: 08/23/19 20:02 Dose: 1 gtt Documented by: [facility] Last Admin: 08/23/19 09:26 Dose: 3.125 mg Documented by: Chlorhexidine Gluconate (Peridex) 15 ml SWABMOUTH BID [facility] Last Admin: 08/23/19 20:05 Dose: 15 ml Documented by: Clopidogrel Bisulfate (Plavix) 75 mg PO DAILY [facility] Last Admin: 08/23/19 09:27 Dose: 75 mg Documented by: Enoxaparin Sodium (Lovenox) 40 mg SQ DAILY [facility] Last Admin: 08/23/19 09:27 Dose: 40 mg Documented by: Folic Acid (Folic Acid) 1 mg PO DAILY [facility] Last Admin: 08/23/19 09:27 Dose: 1 mg Documented by: Potassium Chloride 40 meq/ (Dextrose) 520 mls @ 130 mls/hr IV UD PRN PRN Reason: Potassium < / = 3.5 Last Infusion: 08/23/19 12:35 Dose: 0 mls/hr Documented by: Magnesium Sulfate (Magnesium Sulfate) 2 gm in 50 mls @ 50 mls/hr IV UD PRN PRN Reason: Magnesium </= 1.7 Last Infusion: 08/22/19 10:50 Dose: Infused Documented by: Piperacillin Sod/Tazobactam (Sod 3.375 gm/ Dextrose) 50 mls @ 100 mls/hr IV Q6H [facility]; Protocol Last Infusion: 08/24/19 06:30 Dose: Infused Documented by: Iron Carb/Multivit/[place]/Folic Acid (Multivitamin W/Minerals) 1 tab PO DAILY [facility] Last Admin: 08/23/19 09:27 Dose: 1 tab Documented by: Labetalol HCl (Trandate) 0 mg IV Q2HP PRN PRN Reason: Hypertension Latanoprost (Xalatan Ophth Drops) 1 gtt OU HS [facility] Last Admin: 08/23/19 20:06 Dose: 1 gtt Documented by: Lorazepam (Ativan) 1 - 4 mg IV Q1HP PRN; Protocol PRN Reason: Alcohol Withdrawal Last Admin: 08/24/19 04:31 Dose: 3 mg Documented by: Losartan Potassium (Cozaar) 100 mg PO DAILY [facility] Last Admin: 08/23/19 09:27 Dose: 100 mg Documented by: Ondansetron HCl (Zofran) 4 mg IV Q4HP PRN PRN Reason: Nausea And Vomiting Polyethylene Glycol (Miralax) 17 gm PO DAILYP PRN PRN Reason: Constipation Potassium Chloride (Kdur) 40 meq PO UD PRN PRN Reason: Potssium is 3-3.5 Last Admin: 08/17/19 09:31 Dose: 40 meq Documented by: Potassium Chloride (Kdur) 40 meq PO UD PRN PRN Reason: Potassium < 3 Senna (Senokot) 2 tab PO DAILYP PRN PRN Reason: Constipation Simvastatin (Zocor) 20 mg PO DAILY [facility] Last Admin: 08/23/19 09:27 Dose: 20 mg Documented by: Sodium Chloride (Saline Flush) 10 ml IV Q8 [facility] Last Admin: 08/24/19 06:38 Dose: 10 ml Documented by: Medical - PN: A/P - Time Spent With Patient Total time spent is greater than 50% in coordination of care (as documented) at patient's floor/unit and/or counseling patient: - Narrative A/P Narrative: A: *Encephalopathy superimposed on underlying cerebral dz: improved in ED after IVF, worsened with onset of alcohol withdrawal -CT brain with mod atrophy/chorinc ischemic changes and old infarcts *Etoh abuse w/d with DT's: *PNA/aspiration likely from above: -bandemia resolved, pct/crp improved *Syncope: History sounds like a vasovagal episode -telemetry with sinus rhythm. Trop negative -With significantly elevated lactate, seizure initial differential but doubt, suspect liver compromise from liver dz/etoh causing poor metabolism *AG Med acidosis 2/2 Lactic acidosis: 2/2 volume depletions vs Infection (no source found) vs -resolved *volume depletion: resolved *N/V prior to admit: ?gastroenteritis vs other, resolved *h/o diastolic CHF grade I: *h/o CVA as evidenced by CT brain showing moderate atrophy, chronic ischemic changes and old lacunar infarcts *h/o artery stenosis: On Plavix and statin *HTN: On Coreg Norvasc and losartan *mild transaminitis: similar to outpt labs from last Fall -2/2 Fatty liver and likely alcoholic hepatitis. improved -hepatitis panel neg *Hyponatremia: resolved *Hypomag/phos: P: -TF's -d/c sedation -IV thiamine, folate -Zosyn -repeat CT brain if no improvement off sedative meds -PRN electrolyte replacement, f/u today -cont home BP meds -cont Plavix/statin -pt/ot -ppx: lovenox DNR
[2019-08-24 07:30] LABS: Blood Urea Nitrogen 13 mg/dl (8-23); Chloride 91 mmol/L (96-108)
[2019-08-24 07:52] LABS: Eosinophils % (Manual) 2 % (0-7); Lymphocytes % 12 % (15-49); Monocytes % (Manual) 6 % (1-12); Myelocytes % 1 % (0-0); Platelet Estimate NORMAL (NORMAL); RBC Morphology NORMAL (NORMAL); Reactive Lymphocytes 1 % (0-2); Segmented Neutrophils % 78 % (38-78)
[2019-08-24] MEDS: CARVEDILOL 3.125 MG TABLET PO SCH (08:34)
[2019-08-24] MEDS ORDERED: BISACODYL 10 MG SUPP.RECT PR PRN (08:54)
[2019-08-24] MEDS: POTASSIUM CHLORIDE 40 MEQ in DEXTROSE 5% IN WATER 500 ML IV PRN (09:34)
[2019-08-24] MEDS: LOSARTAN 50 MG TABLET PO SCH (10:00)
[2019-08-24] MEDS: BRIMONIDINE OPHTH DROPS 1 GTT BOTTLE 5ML OU SCH ×2 (10:00→20:00)
[2019-08-24] MEDS: MULTIVIT,THER IRON,CA,FA & MIN 1 TABLET PO SCH (10:00)
[2019-08-24] MEDS: CLOPIDOGREL 75 MG TABLET PO SCH (10:00)
[2019-08-24] MEDS: FOLIC ACID 1 MG TABLET PO SCH (10:01)
[2019-08-24] MEDS: ENOXAPARIN 40 MG/0.4 ML SYRINGE SQ SCH (10:01)
[2019-08-24] MEDS: SIMVASTATIN 20 MG TABLET PO SCH (10:01)
[2019-08-24] MEDS: CHLORHEXIDINE GLUCONATE 1 ML ORAL.SOL SWABMOUTH SCH ×2 (10:01→20:01)
[2019-08-24] MEDS: amLODIPine 10 MG TABLET PO SCH (10:01)
[2019-08-24] MEDS: ACETAMINOPHEN 325 MG TABLET PO PRN (14:27)
[2019-08-24] MEDS ORDERED: FUROSEMIDE 40 MG/4 ML VIAL IV ONE (15:53)
[2019-08-24] MEDS ORDERED: ALBUMIN HUMAN 12.5 GM/50 ML BAG IV ONE (15:53)
[2019-08-24] MEDS ORDERED: IPRATROPIUM/ALBUTEROL 3 ML AMPUL.NEB NEB PRN (15:54)
[2019-08-24 18:53] LABS: Blood Urea Nitrogen 14 mg/dl (8-23); Carbon Dioxide 29 mmol/L (22-30); Glomerular Filtration Rate 91; Glucose 157 mg/dL (70-105)
[2019-08-24 18:54] LABS: Chloride 88 mmol/L (96-108)
[2019-08-24] MEDS ORDERED: POTASSIUM CHLORIDE 20 MEQ/15 ML ML PT ONE (19:42)
[2019-08-24] MEDS: LATANOPROST OPHTH DROPS 2.5ML BOTTLE OU SCH (20:01)
[2019-08-25] MEDS: PIPERACILLIN SODIUM/TAZOBACTAM 3.375 GM in DEXTROSE 5% IN WATER 50 ML IV SCH ×4 (00:04→18:28)
[2019-08-25] MEDS: OLANZapine 5 MG TABLET PO PRN ×2 (00:47→21:37)
[2019-08-25] MEDS: 0.9 % SODIUM CHLORIDE 10 ML SYRINGE IV SCH ×6 (05:49→21:37)
[2019-08-25] MEDS: ACETAMINOPHEN 325 MG TABLET PO PRN ×2 (06:29→15:06)
--- NOTE | 2019-08-25 07:26 | Internal Med Progress Note ---
Medical - PN: Subj Patient information: Note initiated : 08/25/19 at 7:23 am Service Date, if different from initiated Date: [] Patient: Sebastián Valentino a 68 y/o M admitted on 08/16/19 for Fall. Chief Complaint: [] Interval history: 08/16 Mr. Valentino is a 68 year old M who presents the ED after having a syncopal epi sode. Per the history from the patient and his he seemed to be doing well yesterday. He had a sandwich from the sub-shop around 4 PM. Woke up in the morning and did not have breakfast which was unusual for him sound like he just did not have an appetite. And then later in the day around lunchtime he started having some nausea vomiting 3-4 episodes of clear fluid or and yellow fluid. He went down to go to the bathroom and was sitting on the toilet having a bowel movement was last thing he remembers. Next his heard the dog barking and went down found him on the ground by the toilet. Patient seemed confused after awakening and had a hard time remember events and also the year as asked by . He is very weak and his collection could not get him into a car so she called 911. He is never had an episode like this before. His that he is not anything to eat or drink since yesterday at 4 AM. In the ED was evaluated and he was sinus rhythm on the monitor. Labs were not very revealing except for he did have an elevated lactate at 10 which was repeated an hour later found to be 5. Chest x-ray was unrevealing. Urinalysis with some ketones hyaline cast protein CT of the brain showed no acute findings but did show moderate atrophy with chronic ischemic changes and some remote letter could infarcts in the cerebral white matter basal ganglia. Denies any chest pain or abdominal pain or shortness of breath around bowel movement or dysuria. No coughing. After several liters IV fluids in the ER he started to clear up with his mentation. 08/17 Per nurses he had hallucinations and elevated CIWA scores last night. Has tremors to both arms, per notes he has mild tremors each morning but it is more pronounced at this time. He does have underlying cerebral compromise per CT showing moderate atrophy chronic ischemic changes and few remote lacunar infarcts. seems to be doing better this morning. Patient states he feels 100% better. Rhythm sinus on the monitor. 08/18 The patient's provides further history that the patient has likely 10-12 ounces of hard alcohol a day, though she suspects it may be more. He continued to have elevated CIWA scores throughout the afternoon and evening last night. Required 11 mg of lorazepam on days yesterday, a similar amount overnight. This morning remains with delirium. Continue to have significant lorazepam needs for delirium and agitation yesterday. Yesterday evening, started on Precedex with good effect. Not required further lorazepam. This morning on low-dose Precedex with minimal agitation. Requiring oxygen mask at 2 L to maintain saturations. 08/19 Patient became hypotensive overnight while on Precedex. Responded to holding Precedex and giving fluids. Now back on Precedex secondary to increasing agitation and delirium with good blood pressures. On oxygen to maintain saturations. 08/20 Remains on Precedex, still with agitation. Remains afebrile, normal white count. 08/21 Precedex held this morning patient not alert awake yet. No issues overnight. Vitals stable. Is on oxygen mask but 2 L but sats 97%. Sodium 131.. Low potassium and magnesium this morning. Replace. 08/22 Likely aspiration during the withdrawal period. Precedex stopped this morning, restarted last night. Patient waking up refusing to answer questions when answered and asked for his Laura. Antibiotic started for pneumonia. Procalcitonin/crp improved. Bandemia improved. Replete electrolytes. 08/23 Patient was given 3 mg of Ativan last night for agitation. Somnolent this morning. Holding all sedation and avoid if at all possible. If something absolutely has to be used will use Haldol or zyprexa instead of Ativan. 08/24 Patient was able to sit at bedside and stand for short period but wobbly. Pat ient was given dose of Zyprexa in the middle the night. Mentation improving. Chest x-ray improving. Repleting electrolytes. Still difficult to obtain review of systems given poor verbalization - Constitutional Vitals: Vital Signs Temp Pulse Resp BP Pulse Ox 99.7 F H 92 H 24 H 89/60 89 L 08/25/19 06:22 08/24/19 16:15 08/25/19 06:22 08/25/19 06:22 08/25/19 06:22 Period Temp Pulse Resp BP Sys/Masters Pulse Ox Last 24 Hr 98.0 F-100.2 F 92 18-33 87-130/60-91 89-98 Intake and Output 08/24/19 08/25/19 08/25/19 21:59 05:59 13:59 Intake Total 1421 669 235 Output Total 1325 1450 Balance 96 -781 235 Weight 66.395 kg 65.816 kg Patient Weight 08/26/19 05:59 Weight 65.816 kg Intake & Output: Intake & Output 08/24/19 08/25/19 08/25/19 21:59 05:59 13:59 Intake Total 1421 669 235 Output Total 1325 1450 Balance 96 -781 235 Weight 66.395 kg 65.816 kg Intake: IV 620 50 50 Zosyn 3.375 gm In Dextrose 5% 50 50 50 in Water 50 ml @ 100 mls/hr IV Q6H [facility] Rx#:[id number] Potassium Chloride 40 Meq In 520 Dextrose 5% in Water 500 ml @ 130 mls/hr IV UD PRN Rx#: [id number] Tube Feeding 491 549 135 GI Tube Flush 310 70 50 Output: Urine Catheter Amount 1325 1450 Other: Urine Appearance Clear Clear Uretheral (Guid[place]) Clear Clear Urine Color Pale Pale Uretheral (Guidry) Bright Yellow Bright Yellow Urine Odor Normal Stool Size Moderate Stool Color Brown Stool Consistency Soft # of times incontinent of 1 Bowels Exam: General: Drowsy but opens eyes to command, No acute Distress, Eyes/N/T: PERRL, Head/Neck: neck supple, CV: RRR, No murmurs, Pulm: Mild rhonchi right base left much improved, no wheezing Abd: soft, nontender, +BS x4 Ext: no clubbing/cyanosis/edema Neuro: Mentation clearing, follows commands, difficult to understand verbalizations, moves all extremities. Skin: warm/dry Medical - PN: Obj Da - Labs CBC & Chem 7: 08/24/19 05:15 08/25/19 05:10 Labs: Abnormal Lab Results 08/24/19 08/24/19 08/24/19 14:46 05:15 05:15 RBC 4.05 L Hgb 12.4 L Hct 36.0 L MPV 11.2 H Band Neutrophils % Lymphocytes % 12 L Myelocytes % 1 H WBC Morphology Reactive Lymphocytes Toxic Granulation Dohle Bodies Platelet Estimate Sodium 130 L Potassium 3.2 L 2.5 L* Chloride 88 L 91 L Carbon Dioxide Anion Gap BUN Creatinine Glucose 157 H 119 H Uric Acid 1.8 L Calcium Phosphorus Magnesium 1.5 L Total Bilirubin 1.2 H Direct Bilirubin 0.4 H GGT 307 H AST 47 H Lactate Dehydrogenase C-Reactive Protein Albumin 2.9 L Globulin Albumin/Globulin Ratio 0.8 L Prealbumin 08/23/19 08/23/19 08/23/19 05:10 05:10 05:10 RBC 4.31 L Hgb 13.3 L Hct 37.8 L MPV 11.6 H Band Neutrophils % 17 H Lymphocytes % 5 L Myelocytes % WBC Morphology Abnorm A Reactive Lymphocytes Toxic Granulation Few A Dohle Bodies Few A Platelet Estimate Sodium 128 L Potassium 2.9 L* Chloride 89 L Carbon Dioxide Anion Gap BUN 7 L Creatinine Glucose 152 H Uric Acid 1.6 L Calcium Phosphorus Magnesium 1.3 L Total Bilirubin 1.2 H Direct Bilirubin 0.5 H GGT 294 H AST 39 H Lactate Dehydrogenase 257 H C-Reactive Protein 25.2 H Albumin 2.7 L Globulin 3.8 H Albumin/Globulin Ratio 0.7 L Prealbumin 08/22/19 08/22/19 08/22/19 14:02 14:02 05:12 RBC Hgb Hct MPV Band Neutrophils % 26 H Lymphocytes % 12 L Myelocytes % WBC Morphology Abnorm A Reactive Lymphocytes 3 H Toxic Granulation Few A Dohle Bodies 1+ A Platelet Estimate Decreased A Sodium 129 L Potassium Chloride 90 L Carbon Dioxide 20 L Anion Gap 19.0 H BUN 7 L Creatinine Glucose 152 H Uric Acid 2.4 L Calcium Phosphorus 2.0 L Magnesium Total Bilirubin 1.2 H Direct Bilirubin 0.4 H GGT 323 H AST Lactate Dehydrogenase 312 H C-Reactive Protein 31.1 H Albumin 2.8 L Globulin 4.1 H Albumin/Globulin Ratio 0.7 L Prealbumin 7.1 L 08/22/19 05:12 RBC Hgb Hct MPV Band Neutrophils % Lymphocytes % Myelocytes % WBC Morphology Reactive Lymphocytes Toxic Granulation Dohle Bodies Platelet Estimate Sodium 131 L Potassium 2.7 L* Chloride 94 L Carbon Dioxide Anion Gap BUN 6 L Creatinine 0.6 L Glucose 143 H Uric Acid Calcium 8.0 L Phosphorus 2.0 L Magnesium 1.3 L Total Bilirubin 1.1 H Direct Bilirubin 0.4 H GGT 301 H AST Lactate Dehydrogenase C-Reactive Protein Albumin 2.8 L Globulin Albumin/Globulin Ratio 0.8 L Prealbumin Meds: Medications Acetaminophen (Tylenol) 650 mg PO Q6HP PRN PRN Reason: PAIN/FEVER > 101 Last Admin: 08/25/19 06:29 Dose: 650 mg Documented by: Albuterol/Ipratropium (Duoneb) 3 ml NEB Q6HP PRN PRN Reason: Shortness Of Breath Last Admin: 08/24/19 16:14 Dose: 3 ml Documented by: Amlodipine Besylate (Norvasc) 10 mg PO DAILY [facility] Last Admin: 08/24/19 10:01 Dose: 10 mg Documented by: Bisacodyl (Dulcolax) 10 mg MI DAILYP PRN PRN Reason: Constipation Last Admin: 08/24/19 12:12 Dose: 10 mg Documented by: Brimonidine Tartrate (Alphagan P Ophth Drops) 1 gtt OU BID [facility] Last Admin: 08/24/19 20:00 Dose: 1 gtt Documented by: Carvedilol (Coreg) 3.125 mg PO [facility] Last Admin: 08/24/19 08:34 Dose: 3.125 mg Documented by: Chlorhexidine Gluconate (Peridex) 15 ml SWABMOUTH BID [facility] Last Admin: 08/24/19 20:01 Dose: 15 ml Documented by: Clopidogrel Bisulfate (Plavix) 75 mg PO DAILY [facility] Last Admin: 08/24/19 10:00 Dose: 75 mg Documented by: Enoxaparin Sodium (Lovenox) 40 mg SQ DAILY [facility] Last Admin: 08/24/19 10:01 Dose: 40 mg Documented by: Folic Acid (Folic Acid) 1 mg PO DAILY [facility] Last Admin: 08/24/19 10:01 Dose: 1 mg Documented by: Potassium Chloride 40 meq/ (Dextrose) 520 mls @ 130 mls/hr IV UD PRN PRN Reason: Potassium < / = 3.5 Last Infusion: 08/24/19 15:00 Dose: Infused Documented by: Magnesium Sulfate (Magnesium Sulfate) 2 gm in 50 mls @ 50 mls/hr IV UD PRN PRN Reason: Magnesium </= 1.7 Last Infusion: 08/22/19 10:50 Dose: Infused Documented by: Piperacillin Sod/Tazobactam (Sod 3.375 gm/ Dextrose) 50 mls @ 100 mls/hr IV Q6H [facility]; Protocol Last Infusion: 08/25/19 06:25 Dose: Infused Documented by: Iron Carb/Multivit/Sld Educational Aide/Folic Acid (Multivitamin W/Minerals) 1 tab PO DAILY [facility] Last Admin: 08/24/19 10:00 Dose: 1 tab Documented by: Labetalol HCl (Trandate) 0 mg IV Q2HP PRN PRN Reason: Hypertension Latanoprost (Xalatan Ophth Drops) 1 gtt OU HS [facility] Last Admin: 08/24/19 20:01 Dose: 1 gtt Documented by: Losartan Potassium (Cozaar) 100 mg PO DAILY [facility] Last Admin: 08/24/19 10:00 Dose: 100 mg Documented by: Olanzapine (Zyprexa) 5 mg PO HS PRN PRN Reason: Agitation Last Admin: 08/25/19 00:47 Dose: 5 mg Documented by: Ondansetron HCl (Zofran) 4 mg IV Q4HP PRN PRN Reason: Nausea And Vomiting Polyethylene Glycol (Miralax) 17 gm PO DAILYP PRN PRN Reason: Constipation Potassium Chloride (Kdur) 40 meq PO UD PRN PRN Reason: Potssium is 3-3.5 Last Admin: 08/17/19 09:31 Dose: 40 meq Documented by: Potassium Chloride (Kdur) 40 meq PO UD PRN PRN Reason: Potassium < 3 Last Admin: 08/24/19 08:41 Dose: 40 meq Documented by: Senna (Senokot) 2 tab PO DAILYP PRN PRN Reason: Constipation Simvastatin (Zocor) 20 mg PO DAILY [facility] Last Admin: 08/24/19 10:01 Dose: 20 mg Documented by: Sodium Chloride (Saline Flush) 10 ml IV Q8 [facility] Last Admin: 08/25/19 06:31 Dose: 10 ml Documented by: Medical - PN: A/P - Time Spent With Patient Total time spent is greater than 50% in coordination of care (as documented) at patient's floor/unit and/or counseling patient: - Narrative A/P Narrative: A: *Encephalopathy superimposed on underlying cerebral dz: improved in ED after IVF, worsened with onset of alcohol withdrawal -CT brain with mod atrophy/chorinc ischemic changes and old infarcts -IMproving *Etoh abuse w/d with DT's: *PNA/aspiration likely from above: -bandemia resolved, pct/crp improved -CXR improving *Syncope: History sounds like a vasovagal episode -telemetry with sinus rhythm. Trop negative -With significantly elevated lactate, seizure initial differential but doubt, suspect liver compromise from liver dz/etoh causing poor metabolism *AG Med acidosis 2/2 Lactic acidosis: 2/2 volume depletions vs Infection (no source found) vs -resolved *volume depletion: resolved *N/V prior to admit: ?gastroenteritis vs other, resolved *h/o diastolic CHF grade I: *h/o CVA as evidenced by CT brain showing moderate atrophy, chronic ischemic changes and old lacunar infarcts *h/o artery stenosis: On Plavix and statin *HTN: On Coreg Norvasc and losartan *mild transaminitis: similar to outpt labs from last Fall -2/2 Fatty liver and likely alcoholic hepatitis. improved -hepatitis panel neg *Hyponatremia: resolved *Hypomag/phos/nitin: P: -TF's d/c when able to take PO, -d/c sedation, prn zyprexa qhs if absolutely need but try to avoid -IV thiamine, folate -Zosyn -PRN electrolyte replacement, -hold norvasc/losartan for low BP, cont BB for now -cont Plavix/statin -pt/ot -ppx: lovenox DNR
[2019-08-25] MEDS: CARVEDILOL 3.125 MG TABLET PO SCH (08:06)
[2019-08-25 08:12] LABS: ALT/SGPT 30 U/l (0-40); AST/SGOT 38 U/l (0-37); Albumin 3.2 gm/dL (3.2-5.2); Albumin/Globulin Ratio 0.9 (1.0-2.3); Alkaline Phosphatase 135 U/L (39-117); Bilirubin,Total 0.8 mg/dL (0.0-1.0); Blood Urea Nitrogen 15 mg/dl (8-23); Calcium 9.5 mg/dl (8.6-10.4); Carbon Dioxide 32 mmol/L (22-30); Globulin 3.7 gm/dL (2.2-3.7); Glomerular Filtration Rate 87; Glucose 127 mg/dL (70-105); Lactate Dehydrogenase 228 U/L (94-250); Phosphorous 3.2 mg/dL (2.7-4.5); Triglycerides 127 mg/dl (<150); Uric Acid 2.1 mg/dL (2.5-8.0)
[2019-08-25 08:27] LABS: Bilirubin,Direct 0.3 mg/dL (0.0-0.3); Chloride 92 mmol/L (96-108)
[2019-08-25] MEDS: CHLORHEXIDINE GLUCONATE 1 ML ORAL.SOL SWABMOUTH SCH ×2 (09:36→21:37)
[2019-08-25] MEDS: CLOPIDOGREL 75 MG TABLET PO SCH (09:37)
[2019-08-25] MEDS: ENOXAPARIN 40 MG/0.4 ML SYRINGE SQ SCH (09:37)
[2019-08-25] MEDS: SIMVASTATIN 20 MG TABLET PO SCH (09:37)
[2019-08-25] MEDS: MULTIVIT,THER IRON,CA,FA & MIN 1 TABLET PO SCH (09:37)
[2019-08-25] MEDS: BRIMONIDINE OPHTH DROPS 1 GTT BOTTLE 5ML OU SCH ×2 (09:37→21:37)
[2019-08-25] MEDS: FOLIC ACID 1 MG TABLET PO SCH (09:37)
[2019-08-25] MEDS: MAGNESIUM SULFATE 2 GM/50 ML BAG IV PRN (09:38)
--- NOTE | 2019-08-25 09:46 | XRay Report ---
HISTORY: Follow-up aspiration and pulmonary infiltrates FINDINGS: There is moderate consolidation throughout the left lower lobe with a smaller alveolar infiltrate in the right lower lobe. There has been moderate improvement bilaterally since 08/22/19. Small left-sided pleural effusion is present. The heart is mildly enlarged. The upper lung kumar are clear. There is no pneumothorax. A feeding tube passes through the esophagus into the stomach. Incidentally noted is an intramedullary calcification in the neck of the right humerus. This is probably an enchondroma. IMPRESSION: Improving infiltrates in both lower lobes which may be due to aspiration or pneumonia Interpreted and Authenticated by: Dc Mondragon 08/25/19
[2019-08-25] MEDS: POTASSIUM CHLORIDE 40 MEQ in DEXTROSE 5% IN WATER 500 ML IV PRN (10:52)
[2019-08-25] MEDS: amLODIPine 10 MG TABLET PO SCH (10:59)
[2019-08-25] MEDS: LOSARTAN 50 MG TABLET PO SCH (10:59)
[2019-08-25] MEDS: LATANOPROST OPHTH DROPS 2.5ML BOTTLE OU SCH (21:37)
[2019-08-25] MEDS ORDERED: LORazepam 2 MG/ML VIAL IV PRN (23:03)
[2019-08-25] MEDS ORDERED: LORazepam 2 MG/ML VIAL ONE (23:08)
[2019-08-26] MEDS: PIPERACILLIN SODIUM/TAZOBACTAM 3.375 GM in DEXTROSE 5% IN WATER 50 ML IV SCH ×4 (00:03→18:38)
[2019-08-26] MEDS: 0.9 % SODIUM CHLORIDE 10 ML SYRINGE IV SCH ×5 (05:50→20:26)
[2019-08-26 07:18] LABS: ALT/SGPT 30 U/l (0-40); AST/SGOT 37 U/l (0-37); Albumin 2.9 gm/dL (3.2-5.2); Albumin/Globulin Ratio 0.7 (1.0-2.3); Alkaline Phosphatase 133 U/L (39-117); Bilirubin,Direct 0.2 mg/dL (0.0-0.3); Bilirubin,Total 0.6 mg/dL (0.0-1.0); Blood Urea Nitrogen 16 mg/dl (8-23); Calcium 9.5 mg/dl (8.6-10.4); Carbon Dioxide 28 mmol/L (22-30); Chloride 97 mmol/L (96-108); Globulin 4.1 gm/dL (2.2-3.7); Glomerular Filtration Rate 91; Glucose 140 mg/dL (70-105); Lactate Dehydrogenase 327 U/L (94-250); Phosphorous 4.7 mg/dL (2.7-4.5); Triglycerides 142 mg/dl (<150); Uric Acid 2.1 mg/dL (2.5-8.0)
[2019-08-26] MEDS: ENOXAPARIN 40 MG/0.4 ML SYRINGE SQ SCH (08:43)
[2019-08-26] MEDS: FOLIC ACID 1 MG TABLET PO SCH (08:43)
[2019-08-26] MEDS: METOPROLOL TARTRATE 25 MG TABLET PO SCH ×2 (08:43→20:22)
[2019-08-26] MEDS: CLOPIDOGREL 75 MG TABLET PO SCH (08:43)
[2019-08-26] MEDS: SIMVASTATIN 20 MG TABLET PO SCH (08:43)
[2019-08-26] MEDS: MULTIVIT,THER IRON,CA,FA & MIN 1 TABLET PO SCH (08:43)
[2019-08-26] MEDS: BRIMONIDINE OPHTH DROPS 1 GTT BOTTLE 5ML OU SCH ×2 (08:44→20:23)
[2019-08-26] MEDS ORDERED: BRIMONIDINE TARTRATE OP SCH (09:00)
[2019-08-26] MEDS: CHLORHEXIDINE GLUCONATE 1 ML ORAL.SOL SWABMOUTH SCH ×2 (09:14→20:24)
[2019-08-26] MEDS: HYDROCORTISONE CRM 1% TUBE 30GM TOPICAL SCH ×2 (11:36→20:23)
[2019-08-26] MEDS: ACETAMINOPHEN 325 MG TABLET PO PRN (12:07)
[2019-08-26] MEDS: POTASSIUM CHLORIDE 20 MEQ TABLET PO PRN (12:09)
[2019-08-26] MEDS: POTASSIUM CHLORIDE 40 MEQ in DEXTROSE 5% IN WATER 500 ML IV PRN (12:47)
--- NOTE | 2019-08-26 17:55 | Internal Med Progress Note ---
Medical - PN: Subj Patient information: Note initiated : 08/26/19 at 5:41 pm Service Date, if different from initiated Date: [] Patient: Sebastián Valentino a 68 y/o M admitted on 08/16/19 for Fall. Chief Complaint: [] Interval history: 08/16 Mr. Valentino is a 68 year old M who presents the ED after having a syncopal ep isode. Per the history from the patient and his he seemed to be doing well yesterday. He had a sandwich from the sub-shop around 4 PM. Woke up in the morning and did not have breakfast which was unusual for him sound like he just did not have an appetite. And then later in the day around lunchtime he started having some nausea vomiting 3-4 episodes of clear fluid or and yellow fluid. He went down to go to the bathroom and was sitting on the toilet having a bowel movement was last thing he remembers. Next his heard the dog barking and went down found him on the ground by the toilet. Patient seemed confused after awakening and had a hard time remember events and also the year as asked by . He is very weak and his collection could not get him into a car so she called 911. He is never had an episode like this before. His that he is not anything to eat or drink since yesterday at 4 AM. In the ED was evaluated and he was sinus rhythm on the monitor. Labs were not very revealing except for he did have an elevated lactate at 10 which was repeated an hour later found to be 5. Chest x-ray was unrevealing. Urinalysis with some ketones hyaline cast protein CT of the brain showed no acute findings but did show moderate atrophy with chronic ischemic changes and some remote letter could infarcts in the cerebral white matter basal ganglia. Denies any chest pain or abdominal pain or shortness of breath around bowel movement or dysuria. No coughing. After several liters IV fluids in the ER he started to clear up with his mentation. 08/17 Per nurses he had hallucinations and elevated CIWA scores last night. Has tremors to both arms, per notes he has mild tremors each morning but it is more pronounced at this time. He does have underlying cerebral compromise per CT showing moderate atrophy chronic ischemic changes and few remote lacunar infarcts. seems to be doing better this morning. Patient states he feels 100% better. Rhythm sinus on the monitor. 08/18 The patient's provides further history that the patient has likely 10-12 ounces of hard alcohol a day, though she suspects it may be more. He continued to have elevated CIWA scores throughout the afternoon and evening last night. Required 11 mg of lorazepam on days yesterday, a similar amount overnight. This morning remains with delirium. Continue to have significant lorazepam needs for delirium and agitation yesterday. Yesterday evening, started on Precedex with good effect. Not required further lorazepam. This morning on low-dose Precedex with minimal agitation. Requiring oxygen mask at 2 L to maintain saturations. 08/19 Patient became hypotensive overnight while on Precedex. Responded to holding Precedex and giving fluids. Now back on Precedex secondary to increasing agitation and delirium with good blood pressures. On oxygen to maintain saturations. 08/20 Remains on Precedex, still with agitation. Remains afebrile, normal white count. 08/21 Precedex held this morning patient not alert awake yet. No issues overnight. Vitals stable. Is on oxygen mask but 2 L but sats 97%. Sodium 131.. Low potassium and magnesium this morning. Replace. 08/22 Likely aspiration during the withdrawal period. Precedex stopped this morning, restarted last night. Patient waking up refusing to answer questions when answered and asked for his Laura. Antibiotic started for pneumonia. Procalcitonin/crp improved. Bandemia improved. Replete electrolytes. 08/23 Patient was given 3 mg of Ativan last night for agitation. Somnolent this morning. Holding all sedation and avoid if at all possible. If something absolutely has to be used will use Haldol or zyprexa instead of Ativan. 08/24 Patient was able to sit at bedside and stand for short period but wobbly. Michael norris was given dose of Zyprexa in the middle the night. Mentation improving. Chest x-ray improving. Repleting electrolytes. 08/25 Pt was sleeping this morning when saw pt because he was given ativan last night due to agitation. If he is not alert, ST would not be able to do swallow eval. Discontinued ativan and started seroquel and gabapentin. Still difficult to obtain review of systems given poor verbalization - Constitutional Vitals: Vital Signs Temp Pulse Resp BP Pulse Ox 98.0 F 84 21 134/95 98 08/26/19 17:02 08/26/19 10:35 08/26/19 17:02 08/26/19 17:02 08/26/19 17:02 Period Temp Pulse Resp BP Sys/Masters Pulse Ox Last 24 Hr 97.2 F-98.3 F 84-84 15-28 89-136/68-95 88-98 Intake and Output 08/26/19 08/26/19 08/26/19 05:59 13:59 21:59 Intake Total 710 775 330 Output Total 575 475 550 Balance 135 300 -220 Intake & Output: Intake & Output 08/26/19 08/26/19 08/26/19 05:59 13:59 21:59 Intake Total 710 775 330 Output Total 575 475 550 Balance 135 300 -220 Intake: IV 50 100 Zosyn 3.375 gm In Dextrose 5% 50 100 in Water 50 ml @ 100 mls/hr IV Q6H [facility] Rx#:[id number] Tube Feeding 600 515 300 GI Tube Flush 60 160 30 Output: Urine Catheter Amount 575 475 550 Other: Urine Appearance Clear Clear Clear Uretheral (Guidry) Clear Clear Urine Color Dark Yellow Dark Yellow Bright Yellow Uretheral (Guidry) Bright Yellow Bright Yellow Urine Odor Normal Normal - Additional findings Additional findings: General: sleeping and drowse Eyes/N/T: PERRL, Head/Neck: neck supple, CV: RRR, No murmurs, Pulm: Mild rhonchi right base left much improved, no wheezing Abd: soft, nontender, +BS x4 Ext: no clubbing/cyanosis/edema Neuro: drowse due to ativan. Skin: warm/dry Medical - PN: Obj Da - Labs CBC & Chem 7: 08/24/19 05:15 08/26/19 05:15 Labs: Abnormal Lab Results 08/26/19 08/25/19 08/24/19 05:15 05:10 14:46 RBC Hgb Hct MPV Lymphocytes % Myelocytes % Sodium 130 L Potassium 2.9 L* 3.2 L Chloride 92 L 88 L Carbon Dioxide 32 H Glucose 140 H 127 H 157 H Uric Acid 2.1 L 2.1 L Phosphorus 4.7 H Magnesium Total Bilirubin Direct Bilirubin GGT 317 H 317 H AST 38 H Alkaline Phosphatase 133 H 135 H Lactate Dehydrogenase 327 H Albumin 2.9 L Globulin 4.1 H Albumin/Globulin Ratio 0.7 L 0.9 L 08/24/19 08/24/19 05:15 05:15 RBC 4.05 L Hgb 12.4 L Hct 36.0 L MPV 11.2 H Lymphocytes % 12 L Myelocytes % 1 H Sodium Potassium 2.5 L* Chloride 91 L Carbon Dioxide Glucose 119 H Uric Acid 1.8 L Phosphorus Magnesium 1.5 L Total Bilirubin 1.2 H Direct Bilirubin 0.4 H GGT 307 H AST 47 H Alkaline Phosphatase Lactate Dehydrogenase Albumin 2.9 L Globulin Albumin/Globulin Ratio 0.8 L Meds: Medications Acetaminophen (Tylenol) 650 mg PO Q6HP PRN PRN Reason: PAIN/FEVER > 101 Last Admin: 08/26/19 12:07 Dose: 650 mg Documented by: Albuterol/Ipratropium (Duoneb) 3 ml NEB Q6HP PRN PRN Reason: Shortness Of Breath Last Admin: 08/24/19 16:14 Dose: 3 ml Documented by: Bisacodyl (Dulcolax) 10 mg UT DAILYP PRN PRN Reason: Constipation Last Admin: 08/24/19 12:12 Dose: 10 mg Documented by: Brimonidine Tartrate (Alphagan P Ophth Drops) 1 gtt OU BID [facility] Last Admin: 08/26/19 08:44 Dose: 1 gtt Documented by: Chlorhexidine Gluconate (Peridex) 15 ml SWABMOUTH BID [facility] Last Admin: 08/26/19 09:14 Dose: 15 ml Documented by: Clopidogrel Bisulfate (Plavix) 75 mg PO DAILY [facility] Last Admin: 08/26/19 08:43 Dose: 75 mg Documented by: Enoxaparin Sodium (Lovenox) 40 mg SQ DAILY [facility] Last Admin: 08/26/19 08:43 Dose: 40 mg Documented by: Folic Acid (Folic Acid) 1 mg PO DAILY [facility] Last Admin: 08/26/19 08:43 Dose: 1 mg Documented by: Gabapentin (Neurontin) 300 mg PO Q12 [facility] Hydrocortisone (Hc Crm 1%) 1 dose TOPICAL BID [facility] Stop: 08/30/19 09:37 Last Admin: 08/26/19 11:36 Dose: 1 tube Documented by: Potassium Chloride 40 meq/ (Dextrose) 520 mls @ 130 mls/hr IV UD PRN PRN Reason: Potassium < / = 3.5 Last Admin: 08/26/19 12:47 Dose: 100 mls/hr Documented by: Magnesium Sulfate (Magnesium Sulfate) 2 gm in 50 mls @ 50 mls/hr IV UD PRN PRN Reason: Magnesium </= 1.7 Last Infusion: 08/25/19 10:45 Dose: Infused Documented by: Piperacillin Sod/Tazobactam (Sod 3.375 gm/ Dextrose) 50 mls @ 100 mls/hr IV Q6H [facility]; Protocol Last Infusion: 08/26/19 12:46 Dose: Infused Documented by: Iron Carb/Multivit/Vance/Folic Acid (Multivitamin W/Minerals) 1 tab PO DAILY [facility] Last Admin: 08/26/19 08:43 Dose: 1 tab Documented by: Labetalol HCl (Trandate) 0 mg IV Q2HP PRN PRN Reason: Hypertension Latanoprost (Xalatan Ophth Drops) 1 gtt OU HS [facility] Last Admin: 08/25/19 21:37 Dose: 1 gtt Documented by: Metoprolol Tartrate (Lopressor) 12.5 mg PO BID [facility] Last Admin: 08/26/19 08:43 Dose: 12.5 mg Documented by: Olanzapine (Zyprexa) 5 mg PO HS PRN PRN Reason: Agitation Last Admin: 08/25/19 21:37 Dose: 5 mg Documented by: Ondansetron HCl (Zofran) 4 mg IV Q4HP PRN PRN Reason: Nausea And Vomiting Polyethylene Glycol (Miralax) 17 gm PO DAILYP PRN PRN Reason: Constipation Potassium Chloride (Kdur) 40 meq PO UD PRN PRN Reason: Potssium is 3-3.5 Last Admin: 08/26/19 12:09 Dose: 40 meq Documented by: Potassium Chloride (Kdur) 40 meq PO UD PRN PRN Reason: Potassium < 3 Last Admin: 08/24/19 08:41 Dose: 40 meq Documented by: Quetiapine Fumarate (Seroquel) 25 mg PO Q12H PRN PRN Reason: Agitation Senna (Senokot) 2 tab PO DAILYP PRN PRN Reason: Constipation Simvastatin (Zocor) 20 mg PO DAILY [facility] Last Admin: 08/26/19 08:43 Dose: 20 mg Documented by: Sodium Chloride (Saline Flush) 10 ml IV Q8 [facility] Last Admin: 08/26/19 12:47 Dose: 10 ml Documented by: Medical - PN: A/P - Time Spent With Patient Total time spent is greater than 50% in coordination of care (as documented) at patient's floor/unit and/or counseling patient: - Narrative A/P Narrative: Assessment: 1. Encephalopathy superimposed on underlying cerebral dz: improved in ED after IVF, worsened with onset of alcohol withdrawal -CT brain - no acute change -IMproving 2. Etoh abuse w/d with DT's: 3. PNA/aspiration likely from above: -bandemia resolved, pct/crp improved -CXR improving 4. Syncope: most likely due to vasovagal episode -CT of head no acute change -telemetry with sinus rhythm. Trop negative -With significantly elevated lactate, seizure initial differential but doubt, suspect liver compromise from liver dz/etoh causing poor metabolism 5. AG Med acidosis 2/2 Lactic acidosis: 2/2 volume depletions vs Infection (no source found) vs -resolved 6. volume depletion: resolved 7. N/V prior to admit: ?gastroenteritis vs other, resolved 8. h/o diastolic CHF grade I: 9. h/o CVA as evidenced by CT brain showing moderate atrophy, chronic ischemic changes and old lacunar infarcts 10. h/o artery stenosis: On Plavix and statin 11. HTN: On Coreg Norvasc and losartan 12. mild transaminitis: similar to outpt labs from last Fall -2/2 Fatty liver and likely alcoholic hepatitis. -hepatitis panel neg *Hyponatremia: resolved *Hypomag/phos/nitin: Plan: 1. Continue NG tube feeding. d/c when able to take PO, 2. d/c sedation, prn zyprexa qhs if absolutely need but try to avoid. continue olanzapine, added seroquel. 3. IV thiamine, folate 4. Zosyn 5. PRN electrolyte replacement, 6. hold norvasc/losartan for low BP, discontinue carvediol and started metoprolol 12.5mg bid 7. cont Plavix/statin 8. pt/ot 9. ppx: lovenox DNR
[2019-08-26] MEDS: CARVEDILOL 3.125 MG TABLET PO SCH (18:38)
[2019-08-26] MEDS: GABAPENTIN 300 MG CAPSULE PO SCH (20:22)
[2019-08-26] MEDS: OLANZapine 5 MG TABLET PO PRN (20:22)
[2019-08-26] MEDS: LATANOPROST OPHTH DROPS 2.5ML BOTTLE OU SCH (20:24)
[2019-08-26] MEDS ORDERED: LATANOPROST OPHTH DROPS 2.5ML BOTTLE OU SCH (21:00)
[2019-08-26] MEDS: QUEtiapine 25 MG TABLET PO PRN (21:58)
[2019-08-27] MEDS: PIPERACILLIN SODIUM/TAZOBACTAM 3.375 GM in DEXTROSE 5% IN WATER 50 ML IV SCH ×4 (05:44→18:49)
[2019-08-27] MEDS: 0.9 % SODIUM CHLORIDE 10 ML SYRINGE IV SCH ×3 (05:45→21:44)
[2019-08-27] MEDS: BRIMONIDINE OPHTH DROPS 1 GTT BOTTLE 5ML OU SCH ×3 (10:35→21:45)
[2019-08-27] MEDS: HYDROCORTISONE CRM 1% TUBE 30GM TOPICAL SCH ×3 (10:35→21:46)
[2019-08-27] MEDS: FOLIC ACID 1 MG TABLET PO SCH (10:35)
[2019-08-27] MEDS: OLANZapine 5 MG TABLET PO PRN (10:35)
[2019-08-27] MEDS: GABAPENTIN 300 MG CAPSULE PO SCH ×2 (10:36→21:46)
[2019-08-27] MEDS: METOPROLOL TARTRATE 25 MG TABLET PO SCH ×2 (10:36→21:47)
[2019-08-27] MEDS: QUEtiapine 25 MG TABLET PO PRN (10:36)
[2019-08-27] MEDS: MULTIVIT,THER IRON,CA,FA & MIN 1 TABLET PO SCH (10:36)
[2019-08-27] MEDS: CLOPIDOGREL 75 MG TABLET PO SCH (10:36)
[2019-08-27] MEDS: ENOXAPARIN 40 MG/0.4 ML SYRINGE SQ SCH (10:36)
[2019-08-27] MEDS: CHLORHEXIDINE GLUCONATE 1 ML ORAL.SOL SWABMOUTH SCH ×2 (10:37→21:48)
[2019-08-27] MEDS ORDERED: MAGNESIUM SULFATE 2 GM/50 ML BAG IV ONE (11:13)
[2019-08-27] MEDS ORDERED: ACETAMINOPHEN 325 MG TABLET PO PRN (11:13)
[2019-08-27] MEDS ORDERED: BISACODYL 10 MG SUPP.RECT PR PRN (11:13)
[2019-08-27] MEDS ORDERED: MAGNESIUM SULFATE 2 GM/50 ML BAG IV PRN (11:13)
[2019-08-27] MEDS ORDERED: ONDANSETRON 4 MG/2 ML VIAL IV PRN (11:13)
[2019-08-27] MEDS ORDERED: POTASSIUM CHLORIDE 40 MEQ in DEXTROSE 5% IN WATER 500 ML IV PRN (11:13)
[2019-08-27] MEDS ORDERED: IPRATROPIUM/ALBUTEROL 3 ML AMPUL.NEB NEB PRN (11:13)
[2019-08-27] MEDS ORDERED: LABETALOL 5 MG/ML ML IV PRN (11:13)
[2019-08-27] MEDS ORDERED: OLANZapine 5 MG TABLET PO PRN (11:13)
[2019-08-27] MEDS ORDERED: QUEtiapine 25 MG TABLET PO PRN (11:13)
[2019-08-27] MEDS ORDERED: POLYETHYLENE GLYCOL 3350 17 GM PACKET PO PRN (11:13)
[2019-08-27] MEDS ORDERED: SENNOSIDES 1 TABLET PO PRN (11:13)
[2019-08-27] MEDS ORDERED: POTASSIUM CHLORIDE 20 MEQ TABLET PO PRN ×2 (11:13)
[2019-08-27] MEDS: SIMVASTATIN 20 MG TABLET PO SCH (13:24)
--- NOTE | 2019-08-27 16:11 | Internal Med Progress Note ---
Medical - PN: Subj Patient information: Note initiated : 08/27/19 at 4:08 pm Service Date, if different from initiated Date: [] Patient: Sebastián Valentino a 68 y/o M admitted on 08/16/19 for Fall. Chief Complaint: [] Interval history: 08/16 Mr. Valentino is a 68 year old M who presents the ED after having a syncopal epi sode. Per the history from the patient and his he seemed to be doing well yesterday. He had a sandwich from the sub-shop around 4 PM. Woke up in the morning and did not have breakfast which was unusual for him sound like he just did not have an appetite. And then later in the day around lunchtime he started having some nausea vomiting 3-4 episodes of clear fluid or and yellow fluid. He went down to go to the bathroom and was sitting on the toilet having a bowel movement was last thing he remembers. Next his heard the dog barking and went down found him on the ground by the toilet. Patient seemed confused after awakening and had a hard time remember events and also the year as asked by . He is very weak and his collection could not get him into a car so she called 911. He is never had an episode like this before. His that he is not anything to eat or drink since yesterday at 4 AM. In the ED was evaluated and he was sinus rhythm on the monitor. Labs were not very revealing except for he did have an elevated lactate at 10 which was repeated an hour later found to be 5. Chest x-ray was unrevealing. Urinalysis with some ketones hyaline cast protein CT of the brain showed no acute findings but did show moderate atrophy with chronic ischemic changes and some remote letter could infarcts in the cerebral white matter basal ganglia. Denies any chest pain or abdominal pain or shortness of breath around bowel movement or dysuria. No coughing. After several liters IV fluids in the ER he started to clear up with his mentation. 08/17 Per nurses he had hallucinations and elevated CIWA scores last night. Has tremors to both arms, per notes he has mild tremors each morning but it is more pronounced at this time. He does have underlying cerebral compromise per CT showing moderate atrophy chronic ischemic changes and few remote lacunar infarcts. seems to be doing better this morning. Patient states he feels 100% better. Rhythm sinus on the monitor. 08/18 The patient's provides further history that the patient has likely 10-12 ounces of hard alcohol a day, though she suspects it may be more. He continued to have elevated CIWA scores throughout the afternoon and evening last night. Required 11 mg of lorazepam on days yesterday, a similar amount overnight. This morning remains with delirium. Continue to have significant lorazepam needs for delirium and agitation yesterday. Yesterday evening, started on Precedex with good effect. Not required further lorazepam. This morning on low-dose Precedex with minimal agitation. Requiring oxygen mask at 2 L to maintain saturations. 08/19 Patient became hypotensive overnight while on Precedex. Responded to holding Precedex and giving fluids. Now back on Precedex secondary to increasing agitation and delirium with good blood pressures. On oxygen to maintain saturations. 08/20 Remains on Precedex, still with agitation. Remains afebrile, normal white count. 08/21 Precedex held this morning patient not alert awake yet. No issues overnight. Vitals stable. Is on oxygen mask but 2 L but sats 97%. Sodium 131.. Low potassium and magnesium this morning. Replace. 08/22 Likely aspiration during the withdrawal period. Precedex stopped this morning, restarted last night. Patient waking up refusing to answer questions when answered and asked for his Laura. Antibiotic started for pneumonia. Procalcitonin/crp improved. Bandemia improved. Replete electrolytes. 08/23 Patient was given 3 mg of Ativan last night for agitation. Somnolent this morning. Holding all sedation and avoid if at all possible. If something absolutely has to be used will use Haldol or zyprexa instead of Ativan. 08/24 Patient was able to sit at bedside and stand for short period but wobbly. Pat ient was given dose of Zyprexa in the middle the night. Mentation improving. Chest x-ray improving. Repleting electrolytes. 08/25 Pt was sleeping this morning when saw pt because he was given ativan last night due to agitation. If he is not alert, ST would not be able to do swallow eval. Discontinued ativan and started seroquel and gabapentin. 08/26 Today he is more alert and awake and can f/u simple commends. Ativan was discontinued and he is on olanzapine, seroquel and gabapentin. ST is not available on Wednesday. Pt will probably have swallow eval tomorrow. Still difficult to obtain review of systems given poor verbalization - Constitutional Vitals: Vital Signs Temp Pulse Resp BP Pulse Ox 98.7 F 110 H 16 112/81 94 08/27/19 16:01 08/27/19 10:31 08/27/19 16:01 08/27/19 16:01 08/27/19 16:02 Period Temp Pulse Resp BP Sys/Masters Pulse Ox Last 24 Hr 98.0 F-98.7 F 106-110 15-24 110-137/72-95 90-98 Intake and Output 08/27/19 08/27/19 08/27/19 05:59 13:59 21:59 Intake Total 723 Output Total Balance 723 Weight 66.406 kg Patient Weight 08/28/19 05:59 Weight 66.406 kg Intake & Output: Intake & Output 08/27/19 08/27/19 08/27/19 05:59 13:59 21:59 Intake Total 723 Output Total Balance 723 Weight 66.406 kg Intake: IV 50 Zosyn 3.375 gm In Dextrose 5% 50 in Water 50 ml @ 100 mls/hr IV Q6H [facility] Rx#:[id number] Tube Feeding 493 GI Tube Flush 180 Output: Urine Catheter Amount Other: Percent of Meal Consumed 0% Urine Appearance Uretheral (Guidry) Urine Color Uretheral (Guidry) Urine Odor - Additional findings Additional findings: General: more alert and awake today Eyes/N/T: PERRL, Head/Neck: neck supple, CV: RRR, No murmurs, Pulm: Mild rhonchi right base left much improved, no wheezing Abd: soft, nontender, +BS x4 Ext: no clubbing/cyanosis/edema Neuro: drowse due to ativan. Skin: warm/dry Medical - PN: Obj Da - Labs CBC & Chem 7: 08/24/19 05:15 08/26/19 05:15 Labs: Abnormal Lab Results 08/26/19 08/25/19 08/24/19 05:15 05:10 14:46 Sodium 130 L Potassium 2.9 L* 3.2 L Chloride 92 L 88 L Carbon Dioxide 32 H Glucose 140 H 127 H 157 H Uric Acid 2.1 L 2.1 L Phosphorus 4.7 H GGT 317 H 317 H AST 38 H Alkaline Phosphatase 133 H 135 H Lactate Dehydrogenase 327 H Albumin 2.9 L Globulin 4.1 H Albumin/Globulin Ratio 0.7 L 0.9 L Meds: Medications Acetaminophen (Tylenol) 650 mg PO Q6HP PRN PRN Reason: PAIN/FEVER > 101 Albuterol/Ipratropium (Duoneb) 3 ml NEB Q6HP PRN PRN Reason: Shortness Of Breath Bisacodyl (Dulcolax) 10 mg HI DAILYP PRN PRN Reason: Constipation Brimonidine Tartrate (Alphagan P Ophth Drops) 1 gtt OU BID [facility] Chlorhexidine Gluconate (Peridex) 15 ml SWABMOUTH BID [facility] Clopidogrel Bisulfate (Plavix) 75 mg PO DAILY [facility] Enoxaparin Sodium (Lovenox) 40 mg SQ DAILY [facility] Folic Acid (Folic Acid) 1 mg PO DAILY [facility] Gabapentin (Neurontin) 300 mg PO Q12 [facility] Hydrocortisone (Hc Crm 1%) 1 dose TOPICAL BID [facility] Stop: 08/30/19 09:37 Potassium Chloride 40 meq/ (Dextrose) 520 mls @ 130 mls/hr IV UD PRN PRN Reason: Potassium < / = 3.5 Magnesium Sulfate (Magnesium Sulfate) 2 gm in 50 mls @ 50 mls/hr IV UD PRN PRN Reason: Magnesium </= 1.7 Piperacillin Sod/Tazobactam (Sod 3.375 gm/ Dextrose) 50 mls @ 100 mls/hr IV Q6H [facility]; Protocol Last Admin: 08/27/19 13:23 Dose: 100 mls/hr Documented by: Iron Carb/Multivit/Byers/Folic Acid (Multivitamin W/Minerals) 1 tab PO DAILY [facility] Labetalol HCl (Trandate) 0 mg IV Q2HP PRN PRN Reason: Hypertension Latanoprost (Xalatan Ophth Drops) 1 gtt OU HS [facility] Metoprolol Tartrate (Lopressor) 12.5 mg PO BID [facility] Olanzapine (Zyprexa) 5 mg PO HS PRN PRN Reason: Agitation Ondansetron HCl (Zofran) 4 mg IV Q4HP PRN PRN Reason: Nausea And Vomiting Polyethylene Glycol (Miralax) 17 gm PO DAILYP PRN PRN Reason: Constipation Potassium Chloride (Kdur) 40 meq PO UD PRN PRN Reason: Potssium is 3-3.5 Potassium Chloride (Kdur) 40 meq PO UD PRN PRN Reason: Potassium < 3 Quetiapine Fumarate (Seroquel) 25 mg PO Q12H PRN PRN Reason: Agitation Senna (Senokot) 2 tab PO DAILYP PRN PRN Reason: Constipation Simvastatin (Zocor) 20 mg PO DAILY [facility] Sodium Chloride (Saline Flush) 10 ml IV Q8 [facility] Medical - PN: A/P - Time Spent With Patient Total time spent is greater than 50% in coordination of care (as documented) at patient's floor/unit and/or counseling patient: - Narrative A/P Narrative: Assessment: 1. Encephalopathy superimposed on underlying cerebral dz: improved in ED after IVF, worsened with onset of alcohol withdrawal -CT brain - no acute change -Improving 2. Etoh abuse w/d with DT's: 3. Acute hypoxic respiratory failure -on 2L NC, SpO2 > = 92% 4. PNA/aspiration likely from above: -bandemia resolved, pct/crp improved -CXR improving 5. Syncope: most likely due to vasovagal episode -CT of head no acute change -telemetry with sinus rhythm. Trop negative -With significantly elevated lactate, seizure initial differential but doubt, suspect liver compromise from liver dz/etoh causing poor metabolism 6. AG Med acidosis 2/2 Lactic acidosis: 2/2 volume depletions vs Infection (no source found) vs -resolved 7. volume depletion: resolved 8. N/V prior to admit: ?gastroenteritis vs other, resolved 9. h/o diastolic CHF grade I: 10. h/o CVA as evidenced by CT brain showing moderate atrophy, chronic ischemic changes and old lacunar infarcts 11. h/o artery stenosis: On Plavix and statin 12. HTN: On Coreg Norvasc and losartan 13. mild transaminitis: similar to outpt labs from last Fall -2/2 Fatty liver and likely alcoholic hepatitis. -hepatitis panel neg 14. Hyponatremia: resolved 15. Hypomag/phos/nitin: Plan: 1. Continue NG tube feeding. d/c when able to take PO, pt will probably have swallow eval tomorrow 2. d/c sedation, prn zyprexa qhs if absolutely need but try to avoid. continue olanzapine and seroquel. 3. IV thiamine, folate 4. Continue Zosyn 5. PRN electrolyte replacement, 6. hold norvasc/losartan for low BP, discontinue carvediol and started metoprolol 12.5mg bid 7. cont Plavix/statin 8. pt/ot 9. ppx: lovenox DNR Deposition: SNF
[2019-08-27] MEDS: LATANOPROST OPHTH DROPS 2.5ML BOTTLE OU SCH ×2 (21:00→21:45)
[2019-08-28] MEDS: PIPERACILLIN SODIUM/TAZOBACTAM 3.375 GM in DEXTROSE 5% IN WATER 50 ML IV SCH ×4 (01:18→18:28)
[2019-08-28 06:16] LABS: Basophils # (Auto) 0.07 K/mcL (0.00-0.30); Basophils % (Auto) 0.6 % (0.0-2.0); Eosinophils % (Auto) 1.7 % (0.0-7.0); Granulocytes % (Auto) 81.4 % (38.0-78.0); Hematocrit 39.7 % (40.1-51.0); Hemoglobin 12.8 g/dL (13.7-17.5); Lymphocytes % (Auto) 9.4 % (15.5-49.0); Mean Cell Volume 94.5 fL (80.0-100.0); Mean Corpuscular HGB Conc 32.2 g/dL (31.0-36.0); Mean Platelet Volume 10.9 fL (7.4-10.4); Monocytes # (Auto) 0.81 K/mcL (0.10-0.90); Monocytes % (Auto) 6.9 % (1.0-12.0); Platelet Count 415 K/mcL (140-440); Red Cell Distribution Width 15.6 % (11.5-14.5); WBC 11.7 K/mcL (4.50-11.00)
[2019-08-28 06:18] LABS: ALT/SGPT 28 U/l (0-40); AST/SGOT 31 U/l (0-37); Albumin 3.2 gm/dL (3.2-5.2); Albumin/Globulin Ratio 0.8 (1.0-2.3); Alkaline Phosphatase 143 U/L (39-117); Bilirubin,Total 0.5 mg/dL (0.0-1.0); Blood Urea Nitrogen 21 mg/dl (8-23); Calcium 9.8 mg/dl (8.6-10.4); Carbon Dioxide 25 mmol/L (22-30); Chloride 102 mmol/L (96-108); Globulin 4.1 gm/dL (2.2-3.7); Glomerular Filtration Rate 87; Glucose 164 mg/dL (70-105)
[2019-08-28] MEDS: 0.9 % SODIUM CHLORIDE 10 ML SYRINGE IV SCH ×3 (06:36→20:47)
--- NOTE | 2019-08-28 09:38 | XRay Report ---
CLINICAL INFORMATION: left lower lobe pneumonia COMPARISON: 08/25/2019 FINDINGS: Moderate cardiomegaly is unchanged. Mediastinum and pulmonary vessels are normal. Moderate densely consolidated region of atelectasis or, less likely, infiltrate left lower lobe (retrocardiac region) is stable. Smaller patchy infiltrates in the left midlung and right base have improved. Small left pleural effusion noted IMPRESSION: Moderate consolidated atelectasis or, less likely, infiltrate left lower lobe with small effusion unchanged. Smaller patchy infiltrates in the left midlung and right base. Improved Interpreted and Authenticated by: Pb Walls 08/28/19
[2019-08-28] MEDS: SIMVASTATIN 20 MG TABLET PO SCH (11:54)
[2019-08-28] MEDS: METOPROLOL TARTRATE 25 MG TABLET PO SCH ×2 (11:54→20:45)
[2019-08-28] MEDS: CLOPIDOGREL 75 MG TABLET PO SCH (11:55)
[2019-08-28] MEDS: FOLIC ACID 1 MG TABLET PO SCH (11:55)
[2019-08-28] MEDS: GABAPENTIN 300 MG CAPSULE PO SCH ×2 (11:55→20:45)
[2019-08-28] MEDS: MULTIVIT,THER IRON,CA,FA & MIN 1 TABLET PO SCH (11:55)
[2019-08-28] MEDS: ENOXAPARIN 40 MG/0.4 ML SYRINGE SQ SCH (11:56)
[2019-08-28] MEDS: BRIMONIDINE OPHTH DROPS 1 GTT BOTTLE 5ML OU SCH ×2 (13:06→21:35)
[2019-08-28] MEDS: HYDROCORTISONE CRM 1% TUBE 30GM TOPICAL SCH ×2 (13:07→20:40)
[2019-08-28] MEDS: CHLORHEXIDINE GLUCONATE 1 ML ORAL.SOL SWABMOUTH SCH ×2 (13:09→20:45)
--- NOTE | 2019-08-28 16:46 | Internal Med Progress Note ---
Medical - PN: Subj Patient information: Note initiated : 08/28/19 at 4:35 pm Service Date, if different from initiated Date: [] Patient: Sebastián Valentino a 68 y/o M admitted on 08/16/19 for Fall. Chief Complaint: [] Interval history: 08/16 Mr. Valentino is a 68 year old M who presents the ED after having a syncopal epi sode. Per the history from the patient and his he seemed to be doing well yesterday. He had a sandwich from the sub-shop around 4 PM. Woke up in the morning and did not have breakfast which was unusual for him sound like he just did not have an appetite. And then later in the day around lunchtime he started having some nausea vomiting 3-4 episodes of clear fluid or and yellow fluid. He went down to go to the bathroom and was sitting on the toilet having a bowel movement was last thing he remembers. Next his heard the dog barking and went down found him on the ground by the toilet. Patient seemed confused after awakening and had a hard time remember events and also the year as asked by . He is very weak and his collection could not get him into a car so she called 911. He is never had an episode like this before. His that he is not anything to eat or drink since yesterday at 4 AM. In the ED was evaluated and he was sinus rhythm on the monitor. Labs were not very revealing except for he did have an elevated lactate at 10 which was repeated an hour later found to be 5. Chest x-ray was unrevealing. Urinalysis with some ketones hyaline cast protein CT of the brain showed no acute findings but did show moderate atrophy with chronic ischemic changes and some remote letter could infarcts in the cerebral white matter basal ganglia. Denies any chest pain or abdominal pain or shortness of breath around bowel movement or dysuria. No coughing. After several liters IV fluids in the ER he started to clear up with his mentation. 08/17 Per nurses he had hallucinations and elevated CIWA scores last night. Has tremors to both arms, per notes he has mild tremors each morning but it is more pronounced at this time. He does have underlying cerebral compromise per CT showing moderate atrophy chronic ischemic changes and few remote lacunar infarcts. seems to be doing better this morning. Patient states he feels 100% better. Rhythm sinus on the monitor. 08/18 The patient's provides further history that the patient has likely 10-12 ounces of hard alcohol a day, though she suspects it may be more. He continued to have elevated CIWA scores throughout the afternoon and evening last night. Required 11 mg of lorazepam on days yesterday, a similar amount overnight. This morning remains with delirium. Continue to have significant lorazepam needs for delirium and agitation yesterday. Yesterday evening, started on Precedex with good effect. Not required further lorazepam. This morning on low-dose Precedex with minimal agitation. Requiring oxygen mask at 2 L to maintain saturations. 08/19 Patient became hypotensive overnight while on Precedex. Responded to holding Precedex and giving fluids. Now back on Precedex secondary to increasing agitation and delirium with good blood pressures. On oxygen to maintain saturations. 08/20 Remains on Precedex, still with agitation. Remains afebrile, normal white count. 08/21 Precedex held this morning patient not alert awake yet. No issues overnight. Vitals stable. Is on oxygen mask but 2 L but sats 97%. Sodium 131.. Low potassium and magnesium this morning. Replace. 08/22 Likely aspiration during the withdrawal period. Precedex stopped this morning, restarted last night. Patient waking up refusing to answer questions when answered and asked for his Laura. Antibiotic started for pneumonia. Procalcitonin/crp improved. Bandemia improved. Replete electrolytes. 08/23 Patient was given 3 mg of Ativan last night for agitation. Somnolent this morning. Holding all sedation and avoid if at all possible. If something absolutely has to be used will use Haldol or zyprexa instead of Ativan. 08/24 Patient was able to sit at bedside and stand for short period but wobbly. Pat ient was given dose of Zyprexa in the middle the night. Mentation improving. Chest x-ray improving. Repleting electrolytes. 08/25 Pt was sleeping this morning when saw pt because he was given ativan last night due to agitation. If he is not alert, ST would not be able to do swallow eval. Discontinued ativan and started seroquel and gabapentin. 08/26 Today he is more alert and awake and can f/u simple commends. Ativan was discontinued and he is on olanzapine, seroquel and gabapentin. ST is not available on Wednesday. Pt will probably have swallow eval tomorrow. 08/27 Today he is much more alert and awake. When I saw this patient in the morning, he was sitting on a chair with . Speech pathologist performed swallow eval today - moderate oropharyngeal dysphagia. Recommend Level 5 puree and thin liquids with patient to be in completely upright position for all oral intake. also recommended a chest xray after 24 hours to assess for possible aspiration. If chest xray indicates increased infiltrates, recommend a MBS. White blood cells went up to 11.7 today. Monitor and repeat in the morning Still difficult to obtain review of systems given poor verbalization - Constitutional Vitals: Vital Signs Temp Pulse Resp BP Pulse Ox 97.2 F 109 H 18 107/68 94 08/28/19 16:01 08/27/19 18:47 08/28/19 12:03 08/28/19 16:01 08/28/19 12:03 Period Temp Pulse Resp BP Sys/Masters Pulse Ox Last 24 Hr 97.1 F-97.9 F 109 18-22 80-133/65-92 91-97 Intake and Output 08/28/19 08/28/19 08/28/19 05:59 13:59 21:59 Intake Total 726 558 240 Output Total 270 450 450 Balance 456 108 -210 Intake & Output: Intake & Output 08/28/19 08/28/19 08/28/19 05:59 13:59 21:59 Intake Total 726 558 240 Output Total 270 450 450 Balance 456 108 -210 Intake: IV 100 50 Zosyn 3.375 gm In Dextrose 5% 100 50 in Water 50 ml @ 100 mls/hr IV Q6H [facility] Rx#:[id number] Oral 120 240 Tube Feeding 506 248 GI Tube Flush 120 140 Output: Urine Catheter Amount 270 450 450 Other: Meal Lunch Percent of Meal Consumed 75% Urine Appearance Clear Clear Clear Uretheral ([place]) Clear Urine Color Bright Yellow Dark Yellow Dark Yellow Uretheral ([place]) Dark Yellow - Additional findings Additional findings: General: more alert and awake. Sitting on a chair with Eyes/N/T: PERRL, Head/Neck: neck supple, CV: RRR, No murmurs, Pulm: Mild rhonchi right base left much improved, no wheezing Abd: soft, nontender, +BS x4 Ext: no clubbing/cyanosis/edema Neuro: More alert awake. Skin: warm/dry Medical - PN: Obj Da - Labs CBC & Chem 7: 08/28/19 05:00 08/28/19 05:00 Labs: Abnormal Lab Results 08/28/19 08/28/19 08/26/19 05:00 05:00 05:15 WBC 11.7 H RBC 4.20 L Hgb 12.8 L Hct 39.7 L RDW 15.6 H MPV 10.9 H Gran % 81.4 H Lymph % (Auto) 9.4 L Gran # 9.56 H Lymph # (Auto) 1.10 L Glucose 164 H 140 H Uric Acid 2.1 L Phosphorus 4.7 H GGT 317 H Alkaline Phosphatase 143 H 133 H Lactate Dehydrogenase 327 H Albumin 2.9 L Globulin 4.1 H 4.1 H Albumin/Globulin Ratio 0.8 L 0.7 L Meds: Medications Acetaminophen (Tylenol) 650 mg PO Q6HP PRN PRN Reason: PAIN/FEVER > 101 Albuterol/Ipratropium (Duoneb) 3 ml NEB Q6HP PRN PRN Reason: Shortness Of Breath Bisacodyl (Dulcolax) 10 mg OK DAILYP PRN PRN Reason: Constipation Brimonidine Tartrate (Alphagan P Ophth Drops) 1 gtt OU BID [facility] Last Admin: 08/28/19 13:06 Dose: 1 drop Documented by: Chlorhexidine Gluconate (Peridex) 15 ml SWABMOUTH BID [facility] Last Admin: 08/28/19 13:09 Dose: 15 ml Documented by: Clopidogrel Bisulfate (Plavix) 75 mg PO DAILY [facility] Last Admin: 08/28/19 11:55 Dose: 75 mg Documented by: Enoxaparin Sodium (Lovenox) 40 mg SQ DAILY [facility] Last Admin: 08/28/19 11:56 Dose: 40 mg Documented by: Folic Acid (Folic Acid) 1 mg PO DAILY [facility] Last Admin: 08/28/19 11:55 Dose: 1 mg Documented by: Gabapentin (Neurontin) 300 mg PO Q12 [facility] Last Admin: 08/28/19 11:55 Dose: 300 mg Documented by: Hydrocortisone (Hc Crm 1%) 1 dose TOPICAL BID [facility] Stop: 08/30/19 09:37 Last Admin: 08/28/19 13:07 Dose: 1 dose Documented by: Potassium Chloride 40 meq/ (Dextrose) 520 mls @ 130 mls/hr IV UD PRN PRN Reason: Potassium < / = 3.5 Magnesium Sulfate (Magnesium Sulfate) 2 gm in 50 mls @ 50 mls/hr IV UD PRN PRN Reason: Magnesium </= 1.7 Piperacillin Sod/Tazobactam (Sod 3.375 gm/ Dextrose) 50 mls @ 100 mls/hr IV Q6H [facility]; Protocol Last Infusion: 08/28/19 12:55 Dose: Infused Documented by: Iron Carb/Multivit/[place]/Folic Acid (Multivitamin W/Minerals) 1 tab PO DAILY [facility] Last Admin: 08/28/19 11:55 Dose: 1 tab Documented by: Labetalol HCl (Trandate) 0 mg IV Q2HP PRN PRN Reason: Hypertension Latanoprost (Xalatan Ophth Drops) 1 gtt OU HS [facility] Last Admin: 08/27/19 21:00 Dose: Not Given Documented by: Metoprolol Tartrate (Lopressor) 12.5 mg PO BID [facility] Last Admin: 08/28/19 11:54 Dose: 12.5 mg Documented by: Nystatin (Nystatin) 500,000 units PO TID [facility] Olanzapine (Zyprexa) 5 mg PO HS PRN PRN Reason: Agitation Last Admin: 08/27/19 21:47 Dose: 5 mg Documented by: Ondansetron HCl (Zofran) 4 mg IV Q4HP PRN PRN Reason: Nausea And Vomiting Polyethylene Glycol (Miralax) 17 gm PO DAILYP PRN PRN Reason: Constipation Potassium Chloride (Kdur) 40 meq PO UD PRN PRN Reason: Potssium is 3-3.5 Potassium Chloride (Kdur) 40 meq PO UD PRN PRN Reason: Potassium < 3 Quetiapine Fumarate (Seroquel) 25 mg PO Q12H PRN PRN Reason: Agitation Last Admin: 08/27/19 22:00 Dose: 25 mg Documented by: Senna (Senokot) 2 tab PO DAILYP PRN PRN Reason: Constipation Simvastatin (Zocor) 20 mg PO DAILY [facility] Last Admin: 08/28/19 11:54 Dose: 20 mg Documented by: Sodium Chloride (Saline Flush) 10 ml IV Q8 [facility] Last Admin: 08/28/19 06:36 Dose: 10 ml Documented by: Medical - PN: A/P - Time Spent With Patient Total time spent is greater than 50% in coordination of care (as documented) at patient's floor/unit and/or counseling patient: - Narrative A/P Narrative: Assessment: 1. Encephalopathy superimposed on underlying cerebral dz: improved in ED after IVF, worsened with onset of alcohol withdrawal -CT brain - no acute change -Continue to improve 2. Etoh abuse w/d with DT's: 3. Acute hypoxic respiratory failure -on room air, SpO2 > = 93% 4. PNA/aspiration likely from above: -bandemia resolved, pct/crp improved -CXR improving 5. Syncope: most likely due to vasovagal episode -CT of head no acute change -telemetry with sinus rhythm. Trop negative -With significantly elevated lactate, seizure initial differential but doubt, suspect liver compromise from liver dz/etoh causing poor metabolism 6. AG Med acidosis 2/2 Lactic acidosis: 2/2 volume depletions vs Infection (no source found) vs -resolved 7. volume depletion: resolved 8. N/V prior to admit: ?gastroenteritis vs other, resolved 9. h/o diastolic CHF grade I: 10. h/o CVA as evidenced by CT brain showing moderate atrophy, chronic ischemic changes and old lacunar infarcts 11. h/o artery stenosis: On Plavix and statin 12. HTN: On Coreg Norvasc and losartan 13. mild transaminitis: similar to outpt labs from last Fall -2/2 Fatty liver and likely alcoholic hepatitis. -hepatitis panel neg 14. Hyponatremia: resolved 15. Hypomag/phos/nitin: Plan: 1. Continue NG tube feeding. d/c when able to take PO, 2. Speech pathologist performed swallow eval today - moderate oropharyngeal dysphagia. Recommend Level 5 puree and thin liquids with patient to be in completely upright position for all oral intake. also recommended a chest xray after 24 hours to assess for possible aspiration. If chest xray indicates increased infiltrates, recommend a MBS. 3. d/c sedation, prn zyprexa qhs if absolutely need but try to avoid. continue olanzapine and seroquel. 4. IV thiamine, folate 5. Continue Zosyn 6. PRN electrolyte replacement, 7. hold norvasc/losartan for low BP, discontinue carvediol and started meto prolol 12.5mg bid 8. cont Plavix/statin 9. pt/ot 10. ppx: lovenox DNR Deposition: SNF
[2019-08-28] MEDS: NYSTATIN 500,000 UNITS/5 ML ORAL.SUSP PO SCH ×2 (18:28→20:45)
[2019-08-28] MEDS: LATANOPROST OPHTH DROPS 2.5ML BOTTLE OU SCH (20:45)
[2019-08-29] MEDS: PIPERACILLIN SODIUM/TAZOBACTAM 3.375 GM in DEXTROSE 5% IN WATER 50 ML IV SCH ×4 (03:40→17:34)
[2019-08-29 06:01] LABS: Basophils # (Auto) 0.11 K/mcL (0.00-0.30); Basophils % (Auto) 0.7 % (0.0-2.0); Eosinophils # (Auto) 0.37 K/mcL (0.00-0.70); Eosinophils % (Auto) 2.3 % (0.0-7.0); Granulocytes % (Auto) 81.3 % (38.0-78.0); Hemoglobin 11.7 g/dL (13.7-17.5); Lymphocytes # (Auto) 1.56 K/mcL (1.50-4.80); Lymphocytes % (Auto) 9.8 % (15.5-49.0); Mean Corpuscular HGB Conc 32.5 g/dL (31.0-36.0); Mean Platelet Volume 10.7 fL (7.4-10.4); Monocytes # (Auto) 0.95 K/mcL (0.10-0.90); Monocytes % (Auto) 5.9 % (1.0-12.0); Platelet Count 395 K/mcL (140-440); RBC 3.75 M/mcL (4.63-6.08); Red Cell Distribution Width 15.3 % (11.5-14.5)
[2019-08-29 06:24] LABS: ALT/SGPT 35 U/l (0-40); AST/SGOT 39 U/l (0-37); Albumin/Globulin Ratio 0.8 (1.0-2.3); Alkaline Phosphatase 102 U/L (39-117); Bilirubin,Total 0.6 mg/dL (0.0-1.0); Calcium 9.4 mg/dl (8.6-10.4); Carbon Dioxide 28 mmol/L (22-30); Chloride 101 mmol/L (96-108); Globulin 3.9 gm/dL (2.2-3.7); Glomerular Filtration Rate 61; Glucose 102 mg/dL (70-105)
[2019-08-29 06:25] LABS: Blood Urea Nitrogen 34 mg/dl (8-23)
[2019-08-29] MEDS: 0.9 % SODIUM CHLORIDE 10 ML SYRINGE IV SCH ×3 (06:30→20:08)
[2019-08-29] MEDS: ENOXAPARIN 40 MG/0.4 ML SYRINGE SQ SCH (09:16)
[2019-08-29] MEDS: NYSTATIN 500,000 UNITS/5 ML ORAL.SUSP PO SCH ×4 (09:16→20:06)
[2019-08-29] MEDS: MULTIVIT,THER IRON,CA,FA & MIN 1 TABLET PO SCH (09:17)
[2019-08-29] MEDS: GABAPENTIN 300 MG CAPSULE PO SCH ×2 (09:17→20:07)
[2019-08-29] MEDS: BRIMONIDINE OPHTH DROPS 1 GTT BOTTLE 5ML OU SCH ×2 (09:17→20:06)
[2019-08-29] MEDS: CLOPIDOGREL 75 MG TABLET PO SCH (09:17)
[2019-08-29] MEDS: SIMVASTATIN 20 MG TABLET PO SCH (09:17)
[2019-08-29] MEDS: FOLIC ACID 1 MG TABLET PO SCH (09:17)
[2019-08-29] MEDS: HYDROCORTISONE CRM 1% TUBE 30GM TOPICAL SCH ×2 (09:18→20:05)
[2019-08-29] MEDS: METOPROLOL TARTRATE 25 MG TABLET PO SCH ×2 (11:00→20:07)
[2019-08-29] MEDS: CHLORHEXIDINE GLUCONATE 1 ML ORAL.SOL SWABMOUTH SCH ×2 (11:01→20:07)
[2019-08-29 17:16] LABS: Eosinophils % (Manual) 4 % (0-7); Lymphocytes % 6 % (15-49); Monocytes % (Manual) 6 % (1-12); Platelet Estimate NORMAL (NORMAL); RBC Morphology NORMAL (NORMAL); Segmented Neutrophils % 84 % (38-78)
--- NOTE | 2019-08-29 18:58 | Internal Med Progress Note ---
Medical - PN: Subj Patient information: Note initiated : 08/29/19 at 6:54 pm Service Date, if different from initiated Date: [] Patient: Sebastián Valentino a 68 y/o M admitted on 08/16/19 for Fall. Chief Complaint: [] Interval history: 08/16 Mr. Valentino is a 68 year old M who presents the ED after having a syncopal epi sode. Per the history from the patient and his he seemed to be doing well yesterday. He had a sandwich from the sub-shop around 4 PM. Woke up in the morning and did not have breakfast which was unusual for him sound like he just did not have an appetite. And then later in the day around lunchtime he started having some nausea vomiting 3-4 episodes of clear fluid or and yellow fluid. He went down to go to the bathroom and was sitting on the toilet having a bowel movement was last thing he remembers. Next his heard the dog barking and went down found him on the ground by the toilet. Patient seemed confused after awakening and had a hard time remember events and also the year as asked by . He is very weak and his collection could not get him into a car so she called 911. He is never had an episode like this before. His that he is not anything to eat or drink since yesterday at 4 AM. In the ED was evaluated and he was sinus rhythm on the monitor. Labs were not very revealing except for he did have an elevated lactate at 10 which was repeated an hour later found to be 5. Chest x-ray was unrevealing. Urinalysis with some ketones hyaline cast protein CT of the brain showed no acute findings but did show moderate atrophy with chronic ischemic changes and some remote letter could infarcts in the cerebral white matter basal ganglia. Denies any chest pain or abdominal pain or shortness of breath around bowel movement or dysuria. No coughing. After several liters IV fluids in the ER he started to clear up with his mentation. 08/17 Per nurses he had hallucinations and elevated CIWA scores last night. Has tremors to both arms, per notes he has mild tremors each morning but it is more pronounced at this time. He does have underlying cerebral compromise per CT showing moderate atrophy chronic ischemic changes and few remote lacunar infarcts. seems to be doing better this morning. Patient states he feels 100% better. Rhythm sinus on the monitor. 08/18 The patient's provides further history that the patient has likely 10-12 ounces of hard alcohol a day, though she suspects it may be more. He continued to have elevated CIWA scores throughout the afternoon and evening last night. Required 11 mg of lorazepam on days yesterday, a similar amount overnight. This morning remains with delirium. Continue to have significant lorazepam needs for delirium and agitation yesterday. Yesterday evening, started on Precedex with good effect. Not required further lorazepam. This morning on low-dose Precedex with minimal agitation. Requiring oxygen mask at 2 L to maintain saturations. 08/19 Patient became hypotensive overnight while on Precedex. Responded to holding Precedex and giving fluids. Now back on Precedex secondary to increasing agitation and delirium with good blood pressures. On oxygen to maintain saturations. 08/20 Remains on Precedex, still with agitation. Remains afebrile, normal white count. 08/21 Precedex held this morning patient not alert awake yet. No issues overnight. Vitals stable. Is on oxygen mask but 2 L but sats 97%. Sodium 131.. Low potassium and magnesium this morning. Replace. 08/22 Likely aspiration during the withdrawal period. Precedex stopped this morning, restarted last night. Patient waking up refusing to answer questions when answered and asked for his Laura. Antibiotic started for pneumonia. Procalcitonin/crp improved. Bandemia improved. Replete electrolytes. 08/23 Patient was given 3 mg of Ativan last night for agitation. Somnolent this morning. Holding all sedation and avoid if at all possible. If something absolutely has to be used will use Haldol or zyprexa instead of Ativan. 08/24 Patient was able to sit at bedside and stand for short period but wobbly. Pat ient was given dose of Zyprexa in the middle the night. Mentation improving. Chest x-ray improving. Repleting electrolytes. 08/25 Pt was sleeping this morning when saw pt because he was given ativan last night due to agitation. If he is not alert, ST would not be able to do swallow eval. Discontinued ativan and started seroquel and gabapentin. 08/26 Today he is more alert and awake and can f/u simple commends. Ativan was discontinued and he is on olanzapine, seroquel and gabapentin. ST is not available on Wednesday. Pt will probably have swallow eval tomorrow. 08/27 Today he is much more alert and awake. When I saw this patient in the morning, he was sitting on a chair with . Speech pathologist performed swallow eval today - moderate oropharyngeal dysphagia. Recommend Level 5 puree and thin liquids with patient to be in completely upright position for all oral intake. also recommended a chest xray after 24 hours to assess for possible aspiration. If chest xray indicates increased infiltrates, recommend a MBS. White blood cells went up to 11.7 today. Monitor and repeat in the morning 08/28 Even more alert and awake. He is on dysphagia level [address], he will have a repeat CXR to see how the dysphagia level 5 works. If there is new aspiration on the level 5 diet, he may need a MBS. Difficult to obtain review of systems given poor verbalization - Constitutional Vitals: Vital Signs Temp Pulse Resp BP Pulse Ox 98.4 F 99 H 20 101/77 95 08/29/19 16:16 08/28/19 19:27 08/29/19 16:17 08/29/19 16:16 08/29/19 12:48 Period Temp Pulse Resp BP Sys/Masters Pulse Ox Last 24 Hr 97.6 F-99.1 F 99 14-23 93-118/64-78 91-97 Intake and Output 08/29/19 08/29/19 08/29/19 05:59 13:59 21:59 Intake Total 150 300 Output Total 250 400 Balance -100 300 -400 Weight 65.998 kg Patient Weight 08/30/19 05:59 Weight 65.998 kg Intake & Output: Intake & Output 08/29/19 08/29/19 08/29/19 05:59 13:59 21:59 Intake Total 150 300 Output Total 250 400 Balance -100 300 -400 Weight 65.998 kg Intake: IV 50 100 Zosyn 3.375 gm In Dextrose 5% 50 100 in Water 50 ml @ 100 mls/hr IV Q6H [facility] Rx#:[id number] Oral 100 200 Output: Urine Catheter Amount 250 400 Other: Meal Breakfast Percent of Meal Consumed 100% Feeding Ability Independent Urine Appearance Clear Uretheral ([place]) Clear Urine Color Dark Yellow Uretheral ([place]) Dark Yellow Urine Odor Normal - Additional findings Additional findings: General: more alert and awake. Sitting on a chair with Eyes/N/T: PERRL, Head/Neck: neck supple, CV: RRR, No murmurs, Pulm: Mild rhonchi right base left much improved, no wheezing Abd: soft, nontender, +BS x4 Ext: no clubbing/cyanosis/edema Neuro: More alert awake. Skin: warm/dry Medical - PN: Obj Da - Labs CBC & Chem 7: 08/29/19 04:47 08/29/19 04:46 Labs: Abnormal Lab Results 08/29/19 08/29/19 08/29/19 05:43 04:47 04:46 WBC 16.0 H RBC 3.75 L Hgb 11.7 L Hct 36.0 L RDW 15.3 H MPV 10.7 H Gran % 81.3 H Lymph % (Auto) 9.8 L Gran # 12.99 H Lymph # (Auto) [place] # (Auto) 0.95 H Seg Neutrophils % 84 H Lymphocytes % 6 L BUN 34 H Glucose AST 39 H Alkaline Phosphatase Albumin 3.0 L Globulin 3.9 H Albumin/Globulin Ratio 0.8 L 08/28/19 08/28/19 05:00 05:00 WBC 11.7 H RBC 4.20 L Hgb 12.8 L Hct 39.7 L RDW 15.6 H MPV 10.9 H Gran % 81.4 H Lymph % (Auto) 9.4 L Gran # 9.56 H Lymph # (Auto) 1.10 L [place] # (Auto) Seg Neutrophils % Lymphocytes % BUN Glucose 164 H AST Alkaline Phosphatase 143 H Albumin Globulin 4.1 H Albumin/Globulin Ratio 0.8 L Meds: Medications Acetaminophen (Tylenol) 650 mg PO Q6HP PRN PRN Reason: PAIN/FEVER > 101 Albuterol/Ipratropium (Duoneb) 3 ml NEB Q6HP PRN PRN Reason: Shortness Of Breath Bisacodyl (Dulcolax) 10 mg [place] DAILYP PRN PRN Reason: Constipation Brimonidine Tartrate (Alphagan P Ophth Drops) 1 gtt OU BID [facility] Last Admin: 08/29/19 09:17 Dose: 1 drop Documented by: Chlorhexidine Gluconate (Peridex) 15 ml SWABMOUTH BID [facility] Last Admin: 08/29/19 11:01 Dose: Not Given Documented by: Clopidogrel Bisulfate (Plavix) 75 mg PO DAILY [facility] Last Admin: 08/29/19 09:17 Dose: 75 mg Documented by: Enoxaparin Sodium (Lovenox) 40 mg SQ DAILY [facility] Last Admin: 08/29/19 09:16 Dose: 40 mg Documented by: Folic Acid (Folic Acid) 1 mg PO DAILY [facility] Last Admin: 08/29/19 09:17 Dose: 1 mg Documented by: Gabapentin (Neurontin) 300 mg PO Q12 [facility] Last Admin: 08/29/19 09:17 Dose: 300 mg Documented by: Hydrocortisone (Hc Crm 1%) 1 dose TOPICAL BID [facility] Stop: 08/30/19 09:37 Last Admin: 08/29/19 09:18 Dose: 1 dose Documented by: Potassium Chloride 40 meq/ (Dextrose) 520 mls @ 130 mls/hr IV UD PRN PRN Reason: Potassium < / = 3.5 Magnesium Sulfate (Magnesium Sulfate) 2 gm in 50 mls @ 50 mls/hr IV UD PRN PRN Reason: Magnesium </= 1.7 Piperacillin Sod/Tazobactam (Sod 3.375 gm/ Dextrose) 50 mls @ 100 mls/hr IV Q6H [facility]; Protocol Last Admin: 08/29/19 17:34 Dose: 100 mls/hr Documented by: Iron Carb/Multivit/Learned/Folic Acid (Multivitamin W/Minerals) 1 tab PO DAILY [facility] Last Admin: 08/29/19 09:17 Dose: 1 tab Documented by: Labetalol HCl (Trandate) 0 mg IV Q2HP PRN PRN Reason: Hypertension Latanoprost (Xalatan Ophth Drops) 1 gtt OU HS [facility] Last Admin: 08/28/19 20:45 Dose: 1 gtt Documented by: Metoprolol Tartrate (Lopressor) 12.5 mg PO BID [facility] Last Admin: 08/29/19 11:00 Dose: Not Given Documented by: Nystatin (Nystatin) 500,000 units PO TID [facility] Last Admin: 08/29/19 17:42 Dose: Not Given Documented by: Olanzapine (Zyprexa) 5 mg PO HS PRN PRN Reason: Agitation Last Admin: 08/27/19 21:47 Dose: 5 mg Documented by: Ondansetron HCl (Zofran) 4 mg IV Q4HP PRN PRN Reason: Nausea And Vomiting Polyethylene Glycol (Miralax) 17 gm PO DAILYP PRN PRN Reason: Constipation Potassium Chloride (Kdur) 40 meq PO UD PRN PRN Reason: Potssium is 3-3.5 Potassium Chloride (Kdur) 40 meq PO UD PRN PRN Reason: Potassium < 3 Quetiapine Fumarate (Seroquel) 25 mg PO Q12H PRN PRN Reason: Agitation Last Admin: 08/27/19 22:00 Dose: 25 mg Documented by: Senna (Senokot) 2 tab PO DAILYP PRN PRN Reason: Constipation Simvastatin (Zocor) 20 mg PO DAILY [facility] Last Admin: 08/29/19 09:17 Dose: 20 mg Documented by: Sodium Chloride (Saline Flush) 10 ml IV Q8 [facility] Last Admin: 08/29/19 16:17 Dose: 10 ml Documented by: Medical - PN: A/P - Time Spent With Patient Total time spent is greater than 50% in coordination of care (as documented) at patient's floor/unit and/or counseling patient: - Narrative A/P Narrative: Assessment: 1. Encephalopathy superimposed on underlying cerebral dz: improved in ED after IVF, worsened with onset of alcohol withdrawal -CT brain - no acute change -Continue to improve 2. Etoh abuse w/d with DT's: 3. Acute hypoxic respiratory failure -on room air, SpO2 > = 92% 4. PNA/aspiration likely from above: -bandemia resolved, pct/crp improved -CXR improving 5. Syncope: most likely due to vasovagal episode -CT of head no acute change -telemetry with sinus rhythm. Trop negative -With significantly elevated lactate, seizure initial differential but doubt, suspect liver compromise from liver dz/etoh causing poor metabolism 6. AG Med acidosis 2/2 Lactic acidosis: 2/2 volume depletions vs Infection (no source found) vs -resolved 7. volume depletion: resolved 8. N/V prior to admit: ?gastroenteritis vs other, resolved 9. h/o diastolic CHF grade I: 10. h/o CVA as evidenced by CT brain showing moderate atrophy, chronic ischemic changes and old lacunar infarcts 11. h/o artery stenosis: On Plavix and statin 12. HTN: On Coreg Norvasc and losartan 13. mild transaminitis: similar to outpt labs from last Fall -2/2 Fatty liver and likely alcoholic hepatitis. -hepatitis panel neg 14. Hyponatremia: resolved 15. Hypomag/phos/nitin: Plan: 1. Speech pathologist performed swallow eval yesterday - moderate oropharyngeal dysphagia. Recommend Level 5 puree and thin liquids with patient to be in completely upright position for all oral intake. Repeat CXR to see how the dysphagia level 5 works. If there is new aspiration on the level 5 diet, he may need a MBS. 2. d/c sedation, prn zyprexa qhs. continue olanzapine, seroquel and gabapentin. 4. IV thiamine, folate 5. Continue Zosyn 6. PRN electrolyte replacement, 7. hold norvasc/losartan for low BP, discontinue carvediol and started metoprolol 12.5mg bid 8. cont Plavix/statin 9. pt/ot 10. ppx: lovenox DNR Deposition: SNF
--- NOTE | 2019-08-29 19:15 | Internal Med Progress Note ---
Medical - PN: Subj Patient information: Note initiated : 08/29/19 at 7:11 pm Service Date, if different from initiated Date: [] Patient: Sebastián Valentino a 68 y/o M admitted on 08/16/19 for Fall. Chief Complaint: [] Interval history: 08/16 Mr. Valentino is a 68 year old M who presents the ED after having a syncopal epi sode. Per the history from the patient and his he seemed to be doing well yesterday. He had a sandwich from the sub-shop around 4 PM. Woke up in the morning and did not have breakfast which was unusual for him sound like he just did not have an appetite. And then later in the day around lunchtime he started having some nausea vomiting 3-4 episodes of clear fluid or and yellow fluid. He went down to go to the bathroom and was sitting on the toilet having a bowel movement was last thing he remembers. Next his heard the dog barking and went down found him on the ground by the toilet. Patient seemed confused after awakening and had a hard time remember events and also the year as asked by . He is very weak and his collection could not get him into a car so she called 911. He is never had an episode like this before. His that he is not anything to eat or drink since yesterday at 4 AM. In the ED was evaluated and he was sinus rhythm on the monitor. Labs were not very revealing except for he did have an elevated lactate at 10 which was repeated an hour later found to be 5. Chest x-ray was unrevealing. Urinalysis with some ketones hyaline cast protein CT of the brain showed no acute findings but did show moderate atrophy with chronic ischemic changes and some remote letter could infarcts in the cerebral white matter basal ganglia. Denies any chest pain or abdominal pain or shortness of breath around bowel movement or dysuria. No coughing. After several liters IV fluids in the ER he started to clear up with his mentation. 08/17 Per nurses he had hallucinations and elevated CIWA scores last night. Has tremors to both arms, per notes he has mild tremors each morning but it is more pronounced at this time. He does have underlying cerebral compromise per CT showing moderate atrophy chronic ischemic changes and few remote lacunar infarcts. seems to be doing better this morning. Patient states he feels 100% better. Rhythm sinus on the monitor. 08/18 The patient's provides further history that the patient has likely 10-12 ounces of hard alcohol a day, though she suspects it may be more. He continued to have elevated CIWA scores throughout the afternoon and evening last night. Required 11 mg of lorazepam on days yesterday, a similar amount overnight. This morning remains with delirium. Continue to have significant lorazepam needs for delirium and agitation yesterday. Yesterday evening, started on Precedex with good effect. Not required further lorazepam. This morning on low-dose Precedex with minimal agitation. Requiring oxygen mask at 2 L to maintain saturations. 08/19 Patient became hypotensive overnight while on Precedex. Responded to holding Precedex and giving fluids. Now back on Precedex secondary to increasing agitation and delirium with good blood pressures. On oxygen to maintain saturations. 08/20 Remains on Precedex, still with agitation. Remains afebrile, normal white count. 08/21 Precedex held this morning patient not alert awake yet. No issues overnight. Vitals stable. Is on oxygen mask but 2 L but sats 97%. Sodium 131.. Low potassium and magnesium this morning. Replace. 08/22 Likely aspiration during the withdrawal period. Precedex stopped this morning, restarted last night. Patient waking up refusing to answer questions when answered and asked for his Laura. Antibiotic started for pneumonia. Procalcitonin/crp improved. Bandemia improved. Replete electrolytes. 08/23 Patient was given 3 mg of Ativan last night for agitation. Somnolent this morning. Holding all sedation and avoid if at all possible. If something absolutely has to be used will use Haldol or zyprexa instead of Ativan. 08/24 Patient was able to sit at bedside and stand for short period but wobbly. Pat ient was given dose of Zyprexa in the middle the night. Mentation improving. Chest x-ray improving. Repleting electrolytes. 08/25 Pt was sleeping this morning when saw pt because he was given ativan last night due to agitation. If he is not alert, ST would not be able to do swallow eval. Discontinued ativan and started seroquel and gabapentin. 08/26 Today he is more alert and awake and can f/u simple commends. Ativan was discontinued and he is on olanzapine, seroquel and gabapentin. ST is not available on Wednesday. Pt will probably have swallow eval tomorrow. 08/27 Today he is much more alert and awake. When I saw this patient in the morning, he was sitting on a chair with . Speech pathologist performed swallow eval today - moderate oropharyngeal dysphagia. Recommend Level 5 puree and thin liquids with patient to be in completely upright position for all oral intake. also recommended a chest xray after 24 hours to assess for possible aspiration. If chest xray indicates increased infiltrates, recommend a MBS. White blood cells went up to 11.7 today. Monitor and repeat in the morning 08/28 Even more alert and awake. He is on dysphagia level [address], he will have a repeat CXR to see how the dysphagia level 5 works. If there is new aspiration on the level 5 diet, he may need a MBS. - Constitutional Vitals: Vital Signs Temp Pulse Resp BP Pulse Ox 98.4 F 99 H 20 101/77 95 08/29/19 16:16 08/28/19 19:27 08/29/19 16:17 08/29/19 16:16 08/29/19 12:48 Period Temp Pulse Resp BP Sys/Masters Pulse Ox Last 24 Hr 97.6 F-99.1 F 99 14-23 93-118/64-78 91-97 Intake and Output 08/29/19 08/29/19 08/29/19 05:59 13:59 21:59 Intake Total 150 300 Output Total 250 400 Balance -100 300 -400 Weight 65.998 kg Patient Weight 08/30/19 05:59 Weight 65.998 kg Intake & Output: Intake & Output 08/29/19 08/29/19 08/29/19 05:59 13:59 21:59 Intake Total 150 300 Output Total 250 400 Balance -100 300 -400 Weight 65.998 kg Intake: IV 50 100 Zosyn 3.375 gm In Dextrose 5% 50 100 in Water 50 ml @ 100 mls/hr IV Q6H [facility] Rx#:[id number] Oral 100 200 Output: Urine Catheter Amount 250 400 Other: Meal Breakfast Percent of Meal Consumed 100% Feeding Ability Independent Urine Appearance Clear Uretheral ([place]ry) Clear Urine Color Dark Yellow Uretheral ([place]ry) Dark Yellow Urine Odor Normal Exam: General: more alert and awake. Sitting on a chair with Eyes/N/T: EOMI Head/Neck: neck supple, CV: RRR, No murmurs, Pulm: Mild rhonchi right base left much improved, no wheezing Abd: soft, nontender, +BS x4 Ext: no clubbing/cyanosis/edema Neuro: More alert awake. follows commands, moves all extremities Skin: warm/dry Medical - PN: Obj Da - Labs CBC & Chem 7: 08/29/19 04:47 08/29/19 04:46 Labs: Abnormal Lab Results 08/29/19 08/29/19 08/29/19 05:43 04:47 04:46 WBC 16.0 H RBC 3.75 L Hgb 11.7 L Hct 36.0 L RDW 15.3 H MPV 10.7 H Gran % 81.3 H Lymph % (Auto) 9.8 L Gran # 12.99 H Lymph # (Auto) [place] # (Auto) 0.95 H Seg Neutrophils % 84 H Lymphocytes % 6 L BUN 34 H Glucose AST 39 H Alkaline Phosphatase Albumin 3.0 L Globulin 3.9 H Albumin/Globulin Ratio 0.8 L 08/28/19 08/28/19 05:00 05:00 WBC 11.7 H RBC 4.20 L Hgb 12.8 L Hct 39.7 L RDW 15.6 H MPV 10.9 H Gran % 81.4 H Lymph % (Auto) 9.4 L Gran # 9.56 H Lymph # (Auto) 1.10 L [place] # (Auto) Seg Neutrophils % Lymphocytes % BUN Glucose 164 H AST Alkaline Phosphatase 143 H Albumin Globulin 4.1 H Albumin/Globulin Ratio 0.8 L Meds: Medications Acetaminophen (Tylenol) 650 mg PO Q6HP PRN PRN Reason: PAIN/FEVER > 101 Albuterol/Ipratropium (Duoneb) 3 ml NEB Q6HP PRN PRN Reason: Shortness Of Breath Bisacodyl (Dulcolax) [address] DAILYP PRN PRN Reason: Constipation Brimonidine Tartrate (Alphagan P Ophth Drops) 1 gtt OU BID [facility] Last Admin: 08/29/19 09:17 Dose: 1 drop Documented by: Chlorhexidine Gluconate (Peridex) 15 ml SWABMOUTH BID [facility] Last Admin: 08/29/19 11:01 Dose: Not Given Documented by: Clopidogrel Bisulfate (Plavix) 75 mg PO DAILY [facility] Last Admin: 08/29/19 09:17 Dose: 75 mg Documented by: Enoxaparin Sodium (Lovenox) 40 mg SQ DAILY [facility] Last Admin: 08/29/19 09:16 Dose: 40 mg Documented by: Folic Acid (Folic Acid) 1 mg PO DAILY [facility] Last Admin: 08/29/19 09:17 Dose: 1 mg Documented by: Gabapentin (Neurontin) 300 mg PO Q12 [facility] Last Admin: 08/29/19 09:17 Dose: 300 mg Documented by: Hydrocortisone (Hc Crm 1%) 1 dose TOPICAL BID [facility] Stop: 08/30/19 09:37 Last Admin: 08/29/19 09:18 Dose: 1 dose Documented by: Potassium Chloride 40 meq/ (Dextrose) 520 mls @ 130 mls/hr IV UD PRN PRN Reason: Potassium < / = 3.5 Magnesium Sulfate (Magnesium Sulfate) 2 gm in 50 mls @ 50 mls/hr IV UD PRN PRN Reason: Magnesium </= 1.7 Piperacillin Sod/Tazobactam (Sod 3.375 gm/ Dextrose) 50 mls @ 100 mls/hr IV Q6H [facility]; Protocol Last Admin: 08/29/19 17:34 Dose: 100 mls/hr Documented by: Iron Carb/Multivit/[place]uitman/Folic Acid (Multivitamin W/Minerals) 1 tab PO DAILY [facility] Last Admin: 08/29/19 09:17 Dose: 1 tab Documented by: Labetalol HCl (Trandate) 0 mg IV Q2HP PRN PRN Reason: Hypertension Latanoprost (Xalatan Ophth Drops) 1 gtt OU HS [facility] Last Admin: 08/28/19 20:45 Dose: 1 gtt Documented by: Metoprolol Tartrate (Lopressor) 12.5 mg PO BID [facility] Last Admin: 08/29/19 11:00 Dose: Not Given Documented by: Nystatin (Nystatin) 500,000 units PO TID [facility] Last Admin: 08/29/19 17:42 Dose: Not Given Documented by: Olanzapine (Zyprexa) 5 mg PO HS PRN PRN Reason: Agitation Last Admin: 08/27/19 21:47 Dose: 5 mg Documented by: Ondansetron HCl (Zofran) 4 mg IV Q4HP PRN PRN Reason: Nausea And Vomiting Polyethylene Glycol (Miralax) 17 gm PO DAILYP PRN PRN Reason: Constipation Potassium Chloride (Kdur) 40 meq PO UD PRN PRN Reason: Potssium is 3-3.5 Potassium Chloride (Kdur) 40 meq PO UD PRN PRN Reason: Potassium < 3 Quetiapine Fumarate (Seroquel) 25 mg PO Q12H PRN PRN Reason: Agitation Last Admin: 08/27/19 22:00 Dose: 25 mg Documented by: Senna (Senokot) 2 tab PO DAILYP PRN PRN Reason: Constipation Simvastatin (Zocor) 20 mg PO DAILY [facility] Last Admin: 08/29/19 09:17 Dose: 20 mg Documented by: Sodium Chloride (Saline Flush) 10 ml IV Q8 [facility] Last Admin: 08/29/19 16:17 Dose: 10 ml Documented by: Medical - PN: A/P - Time Spent With Patient Total time spent is greater than 50% in coordination of care (as documented) at patient's floor/unit and/or counseling patient: - Narrative A/P Narrative: A: *Encephalopathy superimposed on underlying cerebral dz: improved in ED after IVF, worsened with onset of alcohol withdrawal -CT brain with mod atrophy/chorinc ischemic changes and old infarcts -IMproved *Etoh abuse w/d with DT's: *PNA/aspiration likely from above: -bandemia resolved, pct/crp improved. CXR improving -now on room air *Moderate Oropharyngeal dysphagia: *Syncope: History sounds like a vasovagal episode -telemetry with sinus rhythm. Trop negative -With significantly elevated lactate, seizure initial differential but doubt, suspect liver compromise from liver dz/etoh causing poor metabolism *AG Med acidosis 2/2 Lactic acidosis: 2/2 volume depletions vs Infection (no source found) vs -resolved *volume depletion: resolved *N/V prior to admit: ?gastroenteritis vs other, resolved *h/o diastolic CHF grade I: *h/o CVA as evidenced by CT brain showing moderate atrophy, chronic ischemic changes and old lacunar infarcts *h/o artery stenosis: On Plavix and statin *HTN: On Coreg Norvasc and losartan *mild transaminitis: similar to outpt labs from last Fall -2/2 Fatty liver and likely alcoholic hepatitis. improved -hepatitis panel neg *Hyponatremia: resolved *Hypomag/phos/nitin: P: - - -ST folloiwng, possible modified barium swallow speech in the morning -d/c Zosyn soon -PRN electrolyte replacement, -hold norvasc/losartan for low normal BP, cont BB for now -cont Plavix/statin -pt/ot -CM for SNF placement -ppx: lovenox DNR
[2019-08-29] MEDS: LATANOPROST OPHTH DROPS 2.5ML BOTTLE OU SCH (20:06)
[2019-08-30] MEDS: PIPERACILLIN SODIUM/TAZOBACTAM 3.375 GM in DEXTROSE 5% IN WATER 50 ML IV SCH ×2 (00:01→05:42)
[2019-08-30] MEDS: 0.9 % SODIUM CHLORIDE 10 ML SYRINGE IV SCH ×4 (05:44→21:47)
--- NOTE | 2019-08-30 06:56 | Internal Med Progress Note ---
Medical - PN: Subj Patient information: Note initiated : 08/30/19 at 6:54 am Service Date, if different from initiated Date: [] Patient: Sebastián Valentino a 68 y/o M admitted on 08/16/19 for Fall. Chief Complaint: [] Interval history: 08/16 Mr. Valentino is a 68 year old M who presents the ED after having a syncopal epi sode. Per the history from the patient and his he seemed to be doing well yesterday. He had a sandwich from the sub-shop around 4 PM. Woke up in the morning and did not have breakfast which was unusual for him sound like he just did not have an appetite. And then later in the day around lunchtime he started having some nausea vomiting 3-4 episodes of clear fluid or and yellow fluid. He went down to go to the bathroom and was sitting on the toilet having a bowel movement was last thing he remembers. Next his heard the dog barking and went down found him on the ground by the toilet. Patient seemed confused after awakening and had a hard time remember events and also the year as asked by . He is very weak and his collection could not get him into a car so she called 911. He is never had an episode like this before. His that he is not anything to eat or drink since yesterday at 4 AM. In the ED was evaluated and he was sinus rhythm on the monitor. Labs were not very revealing except for he did have an elevated lactate at 10 which was repeated an hour later found to be 5. Chest x-ray was unrevealing. Urinalysis with some ketones hyaline cast protein CT of the brain showed no acute findings but did show moderate atrophy with chronic ischemic changes and some remote letter could infarcts in the cerebral white matter basal ganglia. Denies any chest pain or abdominal pain or shortness of breath around bowel movement or dysuria. No coughing. After several liters IV fluids in the ER he started to clear up with his mentation. 08/17 Per nurses he had hallucinations and elevated CIWA scores last night. Has tremors to both arms, per notes he has mild tremors each morning but it is more pronounced at this time. He does have underlying cerebral compromise per CT showing moderate atrophy chronic ischemic changes and few remote lacunar infarcts. seems to be doing better this morning. Patient states he feels 100% better. Rhythm sinus on the monitor. 08/18 The patient's provides further history that the patient has likely 10-12 ounces of hard alcohol a day, though she suspects it may be more. He continued to have elevated CIWA scores throughout the afternoon and evening last night. Required 11 mg of lorazepam on days yesterday, a similar amount overnight. This morning remains with delirium. Continue to have significant lorazepam needs for delirium and agitation yesterday. Yesterday evening, started on Precedex with good effect. Not required further lorazepam. This morning on low-dose Precedex with minimal agitation. Requiring oxygen mask at 2 L to maintain saturations. 08/19 Patient became hypotensive overnight while on Precedex. Responded to holding Precedex and giving fluids. Now back on Precedex secondary to increasing agitation and delirium with good blood pressures. On oxygen to maintain saturations. 08/20 Remains on Precedex, still with agitation. Remains afebrile, normal white count. 08/21 Precedex held this morning patient not alert awake yet. No issues overnight. Vitals stable. Is on oxygen mask but 2 L but sats 97%. Sodium 131.. Low potassium and magnesium this morning. Replace. 08/22 Likely aspiration during the withdrawal period. Precedex stopped this morning, restarted last night. Patient waking up refusing to answer questions when answered and asked for his Laura. Antibiotic started for pneumonia. Procalcitonin/crp improved. Bandemia improved. Replete electrolytes. 08/23 Patient was given 3 mg of Ativan last night for agitation. Somnolent this morning. Holding all sedation and avoid if at all possible. If something absolutely has to be used will use Haldol or zyprexa instead of Ativan. 08/24 Patient was able to sit at bedside and stand for short period but wobbly. Pat ient was given dose of Zyprexa in the middle the night. Mentation improving. Chest x-ray improving. Repleting electrolytes. 08/25 Pt was sleeping this morning when saw pt because he was given ativan last night due to agitation. If he is not alert, ST would not be able to do swallow eval. Discontinued ativan and started seroquel and gabapentin. 08/26 Today he is more alert and awake and can f/u simple commends. Ativan was discontinued and he is on olanzapine, seroquel and gabapentin. ST is not available on Wednesday. Pt will probably have swallow eval tomorrow. 08/27 Today he is much more alert and awake. When I saw this patient in the morning, he was sitting on a chair with . Speech pathologist performed swallow eval today - moderate oropharyngeal dysphagia. Recommend Level 5 puree and thin liquids with patient to be in completely upright position for all oral intake. also recommended a chest xray after 24 hours to assess for possible aspiration. If chest xray indicates increased infiltrates, recommend a MBS. White blood cells went up to 11.7 today. Monitor and repeat in the morning 08/28 Even more alert and awake. He is on dysphagia level [address], he will have a repeat CXR to see how the dysphagia level 5 works. If there is new aspiration on the level 5 diet, he may need a MBS. 08/29 Doing well. No overnight events. Occasional cough. Denies shortness of breath. Dysphasia diet seems to be tolerating. Review of Systems: denies headache/fever/chills/nausea/vomiting/chest or abdominal pain/diarrhea. Otherwise see above. - Constitutional Vitals: Vital Signs Temp Pulse Resp BP Pulse Ox 98.3 F 86 22 135/82 95 08/30/19 04:40 08/30/19 04:40 08/30/19 04:40 08/30/19 04:40 08/30/19 04:40 Period Temp Pulse Resp BP Sys/Masters Pulse Ox Last 24 Hr 97.6 F-98.7 F 86-94 14-23 101-135/69-82 91-95 Intake and Output 08/29/19 08/30/19 08/30/19 21:59 05:59 13:59 Intake Total 890 600 Output Total 400 1200 Balance 490 -600 Weight 68.492 kg Intake & Output: Intake & Output 08/29/19 08/30/19 08/30/19 21:59 05:59 13:59 Intake Total 890 600 Output Total 400 1200 Balance 490 -600 Weight 68.492 kg Intake: IV 50 50 Zosyn 3.375 gm In Dextrose 5% 50 50 in Water 50 ml @ 100 mls/hr IV Q6H [facility] Rx#:[id number] Oral 840 550 Output: Urine Catheter Amount 400 Void Amount 1200 Other: Meal Dinner Percent of Meal Consumed 100% Feeding Ability Independent Urine Appearance Clear Clear Uretheral (Guidry) Clear Urine Color Bright Yellow Dark Yellow Uretheral (Guidry) Dark Yellow Urine Odor Normal Strong Stool Size Moderate Exam: General: alert and awake. NAD Eyes/N/T: EOMI Head/Neck: neck supple, CV: RRR, No murmurs, Pulm: rhonchi/rales right side, no wheezing Abd: soft, nontender, +BS x4 Ext: no clubbing/cyanosis/edema Neuro: alert /awake. follows commands, moves all extremities Skin: warm/dry Medical - PN: Obj Da - Labs CBC & Chem 7: 08/30/19 05:28 08/30/19 05:28 Labs: Abnormal Lab Results 08/29/19 08/29/19 08/29/19 05:43 04:47 04:46 WBC 16.0 H RBC 3.75 L Hgb 11.7 L Hct 36.0 L RDW 15.3 H MPV 10.7 H Gran % 81.3 H Lymph % (Auto) 9.8 L Gran # 12.99 H Lymph # (Auto) Barron # (Auto) 0.95 H Seg Neutrophils % 84 H Lymphocytes % 6 L BUN 34 H Glucose AST 39 H Alkaline Phosphatase Albumin 3.0 L Globulin 3.9 H Albumin/Globulin Ratio 0.8 L 08/28/19 08/28/19 05:00 05:00 WBC 11.7 H RBC 4.20 L Hgb 12.8 L Hct 39.7 L RDW 15.6 H MPV 10.9 H Gran % 81.4 H Lymph % (Auto) 9.4 L Gran # 9.56 H Lymph # (Auto) 1.10 L Barron # (Auto) Seg Neutrophils % Lymphocytes % BUN Glucose 164 H AST Alkaline Phosphatase 143 H Albumin Globulin 4.1 H Albumin/Globulin Ratio 0.8 L Meds: Medications Acetaminophen (Tylenol) 650 mg PO Q6HP PRN PRN Reason: PAIN/FEVER > 101 Albuterol/Ipratropium (Duoneb) 3 ml NEB Q6HP PRN PRN Reason: Shortness Of Breath Bisacodyl (Dulcolax) 10 mg DC DAILYP PRN PRN Reason: Constipation Brimonidine Tartrate (Alphagan P Ophth Drops) 1 gtt OU BID [facility] Last Admin: 08/29/19 20:06 Dose: 1 drop Documented by: Chlorhexidine Gluconate (Peridex) 15 ml SWABMOUTH BID [facility] Last Admin: 08/29/19 20:07 Dose: Not Given Documented by: Clopidogrel Bisulfate (Plavix) 75 mg PO DAILY [facility] Last Admin: 08/29/19 09:17 Dose: 75 mg Documented by: Enoxaparin Sodium (Lovenox) 40 mg SQ DAILY [facility] Last Admin: 08/29/19 09:16 Dose: 40 mg Documented by: Folic Acid (Folic Acid) 1 mg PO DAILY [facility] Last Admin: 08/29/19 09:17 Dose: 1 mg Documented by: Gabapentin (Neurontin) 300 mg PO Q12 [facility] Last Admin: 08/29/19 20:07 Dose: 300 mg Documented by: Hydrocortisone (Hc Crm 1%) 1 dose TOPICAL BID [facility] Stop: 08/30/19 09:37 Last Admin: 08/29/19 20:05 Dose: 1 dose Documented by: Potassium Chloride 40 meq/ (Dextrose) 520 mls @ 130 mls/hr IV UD PRN PRN Reason: Potassium < / = 3.5 Magnesium Sulfate (Magnesium Sulfate) 2 gm in 50 mls @ 50 mls/hr IV UD PRN PRN Reason: Magnesium </= 1.7 Piperacillin Sod/Tazobactam (Sod 3.375 gm/ Dextrose) 50 mls @ 100 mls/hr IV Q6H [facility]; Protocol Last Admin: 08/30/19 05:42 Dose: 100 mls/hr Documented by: Iron Carb/Multivit/Mohave/Folic Acid (Multivitamin W/Minerals) 1 tab PO DAILY [facility] Last Admin: 08/29/19 09:17 Dose: 1 tab Documented by: Labetalol HCl (Trandate) 0 mg IV Q2HP PRN PRN Reason: Hypertension Latanoprost (Xalatan Ophth Drops) 1 gtt OU HS [facility] Last Admin: 08/29/19 20:06 Dose: 1 gtt Documented by: Metoprolol Tartrate (Lopressor) 12.5 mg PO BID [facility] Last Admin: 08/29/19 20:07 Dose: 12.5 mg Documented by: Nystatin (Nystatin) 500,000 units PO TID [facility] Last Admin: 08/29/19 20:06 Dose: 500,000 units Documented by: Olanzapine (Zyprexa) 5 mg PO HS PRN PRN Reason: Agitation Last Admin: 08/27/19 21:47 Dose: 5 mg Documented by: Ondansetron HCl (Zofran) 4 mg IV Q4HP PRN PRN Reason: Nausea And Vomiting Polyethylene Glycol (Miralax) 17 gm PO DAILYP PRN PRN Reason: Constipation Potassium Chloride (Kdur) 40 meq PO UD PRN PRN Reason: Potssium is 3-3.5 Potassium Chloride (Kdur) 40 meq PO UD PRN PRN Reason: Potassium < 3 Quetiapine Fumarate (Seroquel) 25 mg PO Q12H PRN PRN Reason: Agitation Last Admin: 08/27/19 22:00 Dose: 25 mg Documented by: Senna (Senokot) 2 tab PO DAILYP PRN PRN Reason: Constipation Simvastatin (Zocor) 20 mg PO DAILY [facility] Last Admin: 08/29/19 09:17 Dose: 20 mg Documented by: Sodium Chloride (Saline Flush) 10 ml IV Q8 [facility] Last Admin: 08/30/19 05:44 Dose: 10 ml Documented by: Medical - PN: A/P - Time Spent With Patient Total time spent is greater than 50% in coordination of care (as documented) at patient's floor/unit and/or counseling patient: - Narrative A/P Narrative: A: *Encephalopathy superimposed on underlying cerebral dz: improved in ED after IVF, worsened with onset of alcohol withdrawal -CT brain with mod atrophy/chorinc ischemic changes and old infarcts -IMproved *Etoh abuse w/d with DT's: *PNA/Aspiration: -bandemia resolved, pct/crp improved. CXR improving -now on room air *Moderate Oropharyngeal dysphagia: *Syncope: History sounds like a vasovagal episode -telemetry with sinus rhythm. Trop negative -With significantly elevated lactate, seizure initial differential but doubt, suspect liver compromise from liver dz/etoh causing poor metabolism *AG Med acidosis 2/2 Lactic acidosis: 2/2 volume depletions vs Infection (no source found) vs -resolved *volume depletion: resolved *N/V prior to admit: ?gastroenteritis vs other, resolved *h/o diastolic CHF grade I: *h/o CVA as evidenced by CT brain showing moderate atrophy, chronic ischemic changes and old lacunar infarcts *h/o artery stenosis: On Plavix and statin *HTN: On Coreg Norvasc and losartan *mild transaminitis: similar to outpt labs from last Fall -2/2 Fatty liver and likely alcoholic hepatitis. improved -hepatitis panel neg *Hyponatremia: resolved *Hypomag/phos/nitin: P: -IS/Acapella -ST following, on dysphagia diet -d/c Zosyn -PRN electrolyte replacement, -hold norvasc/losartan for low normal BP, cont BB for now -cont Plavix/statin -pt/ot -CM for SNF placement -ppx: lovenox DNR
[2019-08-30 07:13] LABS: Hematocrit 35.9 % (40.1-51.0); Hemoglobin 11.6 g/dL (13.7-17.5); Mean Cell Volume 94.7 fL (80.0-100.0); Mean Corpuscular HGB Conc 32.3 g/dL (31.0-36.0); Mean Platelet Volume 10.9 fL (7.4-10.4); Platelet Count 414 K/mcL (140-440); RBC 3.79 M/mcL (4.63-6.08); Red Cell Distribution Width 14.9 % (11.5-14.5); WBC 11.3 K/mcL (4.50-11.00)
[2019-08-30 07:42] LABS: ALT/SGPT 38 U/l (0-40); AST/SGOT 38 U/l (0-37); Albumin 3.1 gm/dL (3.2-5.2); Albumin/Globulin Ratio 0.8 (1.0-2.3); Alkaline Phosphatase 90 U/L (39-117); Bilirubin,Total 0.5 mg/dL (0.0-1.0); Blood Urea Nitrogen 28 mg/dl (8-23); Calcium 9.3 mg/dl (8.6-10.4); Carbon Dioxide 26 mmol/L (22-30); Chloride 100 mmol/L (96-108); Globulin 3.8 gm/dL (2.2-3.7); Glomerular Filtration Rate 68; Glucose 91 mg/dL (70-105); Lactate Dehydrogenase 193 U/L (94-250); Triglycerides 195 mg/dl (<150)
[2019-08-30 07:51] LABS: Bilirubin,Direct < 0.2 mg/dL (0.0-0.3); Uric Acid 3.1 mg/dL (2.5-8.0)
[2019-08-30 08:10] LABS: Band Neutrophils % 2 % (0-10); Eosinophils % (Manual) 3 % (0-7); Lymphocytes % 8 % (15-49); Monocytes % (Manual) 3 % (1-12); Platelet Estimate NORMAL (NORMAL); RBC Morphology NORMAL (NORMAL); Segmented Neutrophils % 84 % (38-78)
[2019-08-30] MEDS ORDERED: ALBUMIN HUMAN 12.5 GM/50 ML BAG IV ONE (08:25)
[2019-08-30] MEDS ORDERED: FUROSEMIDE 20 MG/2 ML VIAL IV ONE (08:25)
[2019-08-30] MEDS: CLOPIDOGREL 75 MG TABLET PO SCH (09:37)
[2019-08-30] MEDS: HYDROCORTISONE CRM 1% TUBE 30GM TOPICAL SCH (09:37)
[2019-08-30] MEDS: METOPROLOL TARTRATE 25 MG TABLET PO SCH ×2 (09:37→20:59)
[2019-08-30] MEDS: MULTIVIT,THER IRON,CA,FA & MIN 1 TABLET PO SCH (09:37)
[2019-08-30] MEDS: SIMVASTATIN 20 MG TABLET PO SCH (09:37)
[2019-08-30] MEDS: FOLIC ACID 1 MG TABLET PO SCH (09:37)
[2019-08-30] MEDS: GABAPENTIN 300 MG CAPSULE PO SCH ×2 (09:37→21:00)
[2019-08-30] MEDS: BRIMONIDINE OPHTH DROPS 1 GTT BOTTLE 5ML OU SCH ×2 (09:38→21:00)
[2019-08-30] MEDS: ENOXAPARIN 40 MG/0.4 ML SYRINGE SQ SCH (09:38)
[2019-08-30] MEDS: CHLORHEXIDINE GLUCONATE 1 ML ORAL.SOL SWABMOUTH SCH ×2 (09:39→20:57)
[2019-08-30] MEDS: NYSTATIN 500,000 UNITS/5 ML ORAL.SUSP PO SCH ×3 (09:39→20:59)
--- NOTE | 2019-08-30 10:18 | XRay Report ---
CLINICAL INFORMATION: Cough COMPARISON: 08/28/2019 FINDINGS: Mild cardiomegaly is unchanged. Mediastinum and pulmonary vessels are normal. Small consolidated infiltrate in the left base (retrocardiac region, has improved. Small left pleural effusion is also improving slightly. Smaller infiltrates in the left mid and right lower lungs have also improved IMPRESSION: Small consolidated infiltrate in the left base with effusion improving. Smaller patchy infiltrates in the left mid and right base also improving. Interpreted and Authenticated by: Pb Walls 08/30/19
--- NOTE | 2019-08-30 12:01 | Discharge Summary ---
Medical - DS: Prov Patient information: Note initiated : 08/30/19 at 11:58 am Service Date, if different from initiated Date: [] Patient: Sebastián Valentino 68 y/o M admitted on 08/16/19 for Fall. Chief Complaint: [] Date of admission: 08/16/19 23:54 Discharge date: 08/31/19 Primary care physician: Tameka Barber Consults: 08/16/19 Consult to Physician [CONS] Stat Comment: Consulting Provider: Abrahan Hahn Reason For Exam: Physician to Consult Medical - DS: Meds - Discharge Medications Prescriptions: Metoprolol Tartrate [Lopressor] 25 mg PO BID #60 tablet Active and Home Medications: Home Medications Amlodipine Besylate 10 mg PO DAILY 08/16/19 [History Confirmed 08/17/19 Last Taken 08/16/19] Carvedilol 3.125 mg PO BID 08/16/19 [History Confirmed 08/17/19 Last Taken 08/16/19] Clopidogrel 75 mg PO DAILY 08/16/19 [History Confirmed 08/17/19 Last Taken 08/16/19] Losartan Potassium 100 mg PO DAILY 08/16/19 [History Confirmed 08/17/19 Last Taken 08/16/19] Simvastatin 20 mg PO HS 08/16/19 [History Confirmed 08/17/19 Last Taken 08/15/19] Brimonidine Tartrate 10 ml OP BID 08/17/19 [History Confirmed 08/17/19 Last T aken 08/16/19] Latanoprost [Xalatan] 2.5 ml OP HS 08/17/19 [History Confirmed 08/17/19 Last Taken 08/15/19] Home Medications Clopidogrel 75 mg PO DAILY 08/16/19 [History Confirmed 08/17/19 Last Taken 08/16/19] Simvastatin 20 mg PO HS 08/16/19 [History Confirmed 08/17/19 Last Taken 08/15/19] Brimonidine Tartrate 10 ml OP BID 08/17/19 [History Confirmed 08/17/19 Last Take n 08/16/19] Latanoprost [Xalatan] 2.5 ml OP HS 08/17/19 [History Confirmed 08/17/19 Last Taken 08/15/19] Metoprolol Tartrate [Lopressor] 25 mg PO BID #60 tablet 08/31/19 [Rx Last Taken Unknown] Medical - DS: Hosp Hospital Course: 08/16 Mr. Valentino is a 68 year old M who presents the ED after having a syncopal episode. Per the history from the patient and his he seemed to be doing well yesterday. He had a sandwich from the sub-shop around 4 PM. Woke up in the morning and did not have breakfast which was unusual for him sound like he just did not have an appetite. And then later in the day around lunchtime he started having some nausea vomiting 3-4 episodes of clear fluid or and yellow fluid. He went down to go to the bathroom and was sitting on the toilet having a bowel movement was last thing he remembers. Next his heard the dog barking and went down found him on the ground by the toilet. Patient seemed confused after awakening and had a hard time remember events and also the year as asked by . He is very weak and his collection could not get him into a car so she called 911. He is never had an episode like this before. His that he is not anything to eat or drink since yesterday at 4 AM. In the ED was evaluated and he was sinus rhythm on the monitor. Labs were not very revealing except for he did have an elevated lactate at 10 which was repeated an hour later found to be 5. Chest x-ray was unrevealing. Urinalysis with some ketones hyaline cast protein CT of the brain showed no acute findings but did show moderate atrophy with chronic ischemic changes and some remote letter could infarcts in the cerebral white matter basal ganglia. Denies any chest pain or abdominal pain or shortness of breath around bowel movement or dysuria. No coughing. After several liters IV fluids in the ER he started to clear up with his mentation. 08/17 Per nurses he had hallucinations and elevated CIWA scores last night. Has tremors to both arms, per notes he has mild tremors each morning but it is more pronounced at this time. He does have underlying cerebral compromise per CT showing moderate atrophy chronic ischemic changes and few remote lacunar infarcts. seems to be doing better this morning. Patient states he feels 100% better. Rhythm sinus on the monitor. 08/18 The patient's provides further history that the patient has likely 10-12 ounces of hard alcohol a day, though she suspects it may be more. He continued to have elevated CIWA scores throughout the afternoon and evening last night. Required 11 mg of lorazepam on days yesterday, a similar amount overnight. This morning remains with delirium. Continue to have significant lorazepam needs for delirium and agitation yesterday. Yesterday evening, started on Precedex with good effect. Not required further lorazepam. This morning on low-dose Precedex with minimal agitation. Requiring oxygen mask at 2 L to maintain saturations. 08/19 Patient became hypotensive overnight while on Precedex. Responded to holding Precedex and giving fluids. Now back on Precedex secondary to increasing agitation and delirium with good blood pressures. On oxygen to maintain saturations. 08/20 Remains on Precedex, still with agitation. Remains afebrile, normal white count. 08/21 Precedex held this morning patient not alert awake yet. No issues overnight. Vitals stable. Is on oxygen mask but 2 L but sats 97%. Sodium 131.. Low potassium and magnesium this morning. Replace. 08/22 Likely aspiration during the withdrawal period. Precedex stopped this morning, restarted last night. Patient waking up refusing to answer questions when answered and asked for his Laura. Antibiotic started for pneumonia. Procalcitonin/crp improved. Bandemia improved. Replete electrolytes. 08/23 Patient was given 3 mg of Ativan last night for agitation. Somnolent this morning. Holding all sedation and avoid if at all possible. If something absolutely has to be used will use Haldol or zyprexa instead of Ativan. 08/24 Patient was able to sit at bedside and stand for short period but wobbly. Patient was given dose of Zyprexa in the middle the night. Mentation improving. Chest x-ray improving. Repleting electrolytes. 08/25 Pt was sleeping this morning when saw pt because he was given ativan last night due to agitation. If he is not alert, ST would not be able to do swallow eval. Discontinued ativan and started seroquel and gabapentin. 08/26 Today he is more alert and awake and can f/u simple commends. Ativan was discontinued and he is on olanzapine, seroquel and gabapentin. ST is not available on Wednesday. Pt will probably have swallow eval tomorrow. 08/27 Today he is much more alert and awake. When I saw this patient in the morning, he was sitting on a chair with . Speech pathologist performed swallow eval today - moderate oropharyngeal dysphagia. Recommend Level 5 puree and thin liquids with patient to be in compl etely upright position for all oral intake. also recommended a chest xray after 24 hours to assess for possible aspiration. If chest xray indicates increased infiltrates, recommend a MBS. White blood cells went up to 11.7 today. Monitor and repeat in the morning 08/28 Even more alert and awake. He is on dysphagia level [address], he will have a repeat CXR to see how the dysphagia level 5 works. If there is new aspiration on the level 5 diet, he may need a MBS. 08/29 Doing well. No overnight events. Occasional cough. Denies shortness of breath. Dysphagia diet seems to be tolerating. 08/30 No overnight events or new complaints. Doing well. A: *Encephalopathy superimposed on underlying cerebral dz: improved in ED after IVF, worsened with onset of alcohol withdrawal -CT brain with mod atrophy/chorinc ischemic changes and old infarcts -IMproved *Etoh abuse w/d with DT's: *PNA/Aspiration: *Moderate Oropharyngeal dysphagia: *Syncope: History sounds like a vasovagal episode -telemetry with sinus rhythm. Trop negative *AG Med acidosis 2/2 Lactic acidosis: 2/2 volume depletions vs Infection (no source found) vs -resolved *volume depletion: resolved *N/V prior to admit: ?gastroenteritis vs other, resolved *h/o diastolic CHF grade I: *h/o CVA as evidenced by CT brain showing moderate atrophy, chronic ischemic changes and old lacunar infarcts *h/o artery stenosis: On Plavix and statin *HTN: On Coreg Norvasc and losartan *mild transaminitis: similar to outpt labs from last Fall -2/2 Fatty liver and likely alcoholic hepatitis. improved -hepatitis panel neg Discharge diagnosis: Alcohol withdrawal aspiration pneumonia dysphagia vasovagal syncope Secondary discharge diagnosis: Encephalopathy from alcohol withdrawal history of diastolic heart failure history of cerebrovascular accident history of carotid artery stenosis history of hypertension - Time Spent with Patient Total time spent providing and/or coordinating discharge services: Greater than 30 minutes Medical - DS: Exam - Constitutional Vitals: Vital Signs Temp Pulse Resp BP BP BP Pulse Ox 08/30/19 08:15 86 18 94 08/30/19 07:14 98.2 F 86 18 114/72 91 08/30/19 04:40 98.3 F 86 22 135/82 95 08/29/19 23:42 98.7 F 20 101/69 94 08/29/19 20:01 94 H 08/29/19 20:00 18 08/29/19 19:12 98.4 F 20 104/72 91 08/29/19 16:17 20 08/29/19 16:16 98.4 F 19 101/77 08/29/19 12:50 23 H 08/29/19 12:48 97.6 F 21 118/78 95 Intake and Output 08/29/19 08/30/19 08/30/19 21:59 05:59 13:59 Intake Total 890 600 170 Output Total 400 1200 Balance 490 -600 170 Intake: IV 50 50 50 Zosyn 3.375 gm In Dextrose 5% 50 50 50 in Water 50 ml @ 100 mls/hr IV Q6H [facility] Rx#:[id number] Oral 840 550 120 Output: Urine Catheter Amount 400 Void Amount 1200 Other: Meal Dinner Breakfast Percent of Meal Consumed 100% 35% Feeding Ability Independent Independent Urine Appearance Clear Clear Uretheral (Guidry) Clear Clear Urine Color Bright Yellow Dark Yellow Uretheral (Guidry) Dark Yellow Dark Yellow Urine Odor Normal Strong Stool Size Moderate Weight 68.492 kg Medical - DS: Data Labs on day of discharge: Labs from last 24 hours 08/30/19 08/30/19 08/29/19 05:28 05:28 05:43 WBC 11.3 H RBC 3.79 L Hgb 11.6 L Hct 35.9 L MCV 94.7 MCH 30.6 MCHC 32.3 RDW 14.9 H Plt Count 414 MPV 10.9 H Total Counted 100 100 Seg Neutrophils % 84 H 84 H Band Neutrophils % 2 Not Reportable Lymphocytes % 8 L 6 L Monocytes % (Manual) 3 6 Eosinophils % (Manual) 3 4 Platelet Estimate Normal Normal RBC Morphology Normal Normal Sodium 136 Potassium 3.8 Chloride 100 Carbon Dioxide 26 Anion Gap 10.0 BUN 28 H Creatinine 1.1 GFR Calculation 68 Glucose 91 Uric Acid 3.1 Calcium 9.3 Phosphorus 4.0 Magnesium 1.9 Total Bilirubin 0.5 Direct Bilirubin < 0.2 GGT 262 H AST 38 H ALT 38 Alkaline Phosphatase 90 Lactate Dehydrogenase 193 Total Protein 6.9 Albumin 3.1 L Globulin 3.8 H Albumin/Globulin Ratio 0.8 L Triglycerides 195 H Medical - DS: A/P - Patient/Caregiver Discharge Instructions Activity: as per physical therapy Diet: Dysphagia Level 6 Soft & Bite-Sized Foods Additional Instructions: Monitor blood pressure twice daily and bring log to PCP. - Follow up Plan Follow up with: Bassam Fang MD [Physician] - Disposition: er SNF Prognosis: Fair Rehab Potential: Fair I certify that the patient requires SNF services: Yes Overall status at discharge: patient is progressing back to baseline
--- NOTE | 2019-08-30 17:55 | XRay Report ---
CLINICAL INFORMATION: R/O Aspiration COMPARISON: None. FINDINGS: Thin quality barium was administered. Tongue elevation and palate depression are normal. Nasopharyngeus closes normally. Pharyngeal stripping is unremarkable. The epiglottis and vocal cords close normally - no evidence of descending aspiration. Cricopharyngeus opens normally. No structural abnormality. IMPRESSION: Normal exam Interpreted and Authenticated by: Pb Walls 08/30/19
[2019-08-30] MEDS: LATANOPROST OPHTH DROPS 2.5ML BOTTLE OU SCH (21:00)
[2019-08-31] MEDS: 0.9 % SODIUM CHLORIDE 10 ML SYRINGE IV SCH (02:00)
[2019-08-31] MEDS: GABAPENTIN 300 MG CAPSULE PO SCH (08:10)
[2019-08-31] MEDS: MULTIVIT,THER IRON,CA,FA & MIN 1 TABLET PO SCH (08:10)
[2019-08-31] MEDS: ENOXAPARIN 40 MG/0.4 ML SYRINGE SQ SCH (08:10)
[2019-08-31] MEDS: NYSTATIN 500,000 UNITS/5 ML ORAL.SUSP PO SCH (08:10)
[2019-08-31] MEDS: METOPROLOL TARTRATE 25 MG TABLET PO SCH (08:11)
[2019-08-31] MEDS: CLOPIDOGREL 75 MG TABLET PO SCH (08:11)
[2019-08-31] MEDS: SIMVASTATIN 20 MG TABLET PO SCH (08:11)
[2019-08-31] MEDS: CHLORHEXIDINE GLUCONATE 1 ML ORAL.SOL SWABMOUTH SCH (08:12)
[2019-08-31] MEDS: FOLIC ACID 1 MG TABLET PO SCH (08:12)
[2019-08-31] MEDS: BRIMONIDINE OPHTH DROPS 1 GTT BOTTLE 5ML OU SCH (08:17)
== END 2019-08-31 12:45 | DRG 896 ==
LOC: ED 17:30 → ICU 23:54 → MEDSUR 08-29 16:29
PROVIDERS: ADMIT Internal Medicine; ATTEND Internal Medicine